=== PATIENT | male | born 1945 | race Caucasian/White ===

== ENCOUNTER 2019-08-03 10:48 | Emergency (ER) | payer MEDICARE, SELFPAY ==
[2019-08-03 10:54] VITALS: BP 177/97; PULSE 82; RESP 16; TEMP 36.4; O2SAT 95; BMI 20.9
--- NOTE | 2019-08-03 11:02 | ED.RECABL ---
HPI - Recheck/Abnormal Lab/Rx <Martha Gagnon PA-C - Last Filed: 08/03/19 20:17> General Chief Complaint: Recheck/Abnormal Lab/Rx Stated Complaint: peg tube is clogged Time Seen by Provider: 08/03/19 11:02 Source: patient and family Mode of arrival: Ambulatory Limitations: no limitations History of Present Illness HPI narrative: This 73-year-old gentleman had PEG tube placed 1 week ago following cardiac surgery. He states that he has had chronic cough and dysphagia prior, describes worsening vocal cord issues after intubation and found to have aspiration. He comes to ED secondary to the tube being clogged. His states that it seemed to be working fine this morning, she flushed it after his Levoxyl, but later could not push food bolus through even though it looks like there is some movement. Patient states he is feeling fine today aside from this. No new chest discomfort, abdominal pain, vomiting, other new complaints. 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 Hypertension. Mitral valve prolapse with mitral regurg. Radiation esophagitis. AF following MVR Chronic dysphagia/aspiration Past Surgical History Dissection of neck cancer. 07/15 Mitral Valve Repair 07/15 PEG tube placed Related Data Home Medications Medication Instructions Recorded Confirmed acetaminophen 650 mg PO Q4H PRN MDD 3000 08/03/19 08/03/19 albuterol sulfate 1 - 2 inh INHALATION PRN PRN 08/03/19 08/03/19 amiodarone 200 mg PO DAILY 08/03/19 08/03/19 aspirin 81 mg PO DAILY 08/03/19 08/03/19 calcium carbonate 400 mg PO TID PRN 08/03/19 08/03/19 famotidine 20 mg PO BID 08/03/19 08/03/19 finasteride 5 mg PO DAILY 08/03/19 08/03/19 fluticasone propionate 2 spray INTRANASAL BID PRN 08/03/19 08/03/19 furosemide 20 mg PO DAILYX7 08/03/19 08/03/19 guaifenesin 200 mg PO PRN PRN 08/03/19 08/03/19 levothyroxine 112 mcg PO DAILY 08/03/19 08/03/19 metoprolol tartrate 12.5 mg PO BID 08/03/19 08/03/19 multivitamin 30 ml PO DAILY 08/03/19 08/03/19 nystatin 0 ml PO [id number] 08/03/19 08/03/19 polyethylene glycol 3350 17 g PO [id number] PRN 08/03/19 08/03/19 sildenafil (pulm.hypertension) 30 mg PO PRN PRN 08/03/19 08/03/19 warfarin 5 mg PO DAILY 08/03/19 08/03/19 Allergies Allergy/AdvReac Type Severity Reaction Status Date / Time No Known Drug Allergies Allergy Verified 08/03/19 10:54 Review of Systems <Martha Gagnon PA-C - Last Filed: 08/03/19 20:17> Review of Systems ROS Unobtainable: All systems reviewed & are unremarkable except as noted in HPI and below Patient History <Martha Gagnon PA-C - Last Filed: 08/03/19 20:17> Social History Smoking Status: Never smoker Substance Use Type: does not use Exam <Martha Gagnon PA-C - Last Filed: 08/03/19 20:17> Narrative Exam Narrative: GENERAL APPEARANCE: Patient resting comfortably, in no distress. Hoarse voice NECK/THYROID: Neck supple LUNGS: Clear to auscultation bilaterally. HEART: irregular rate and rhythm without murmur ABDOMEN: Soft, NT, ND, + BS x 4 quadrants EXTREMITIES: No cyanosis, mild symmetric. No calf tenderness NEUROLOGIC: Alert and oriented, normal speech, and coordination. Initial Vital Signs Initial Vital Signs: Vital Signs Temperature 97.6 F 08/03/19 10:54 Pulse Rate 82 08/03/19 10:54 Respiratory Rate 16 08/03/19 10:54 Blood Pressure 177/97 H 08/03/19 10:54 Pulse Oximetry 95 08/03/19 10:54 <Janelle Walker DO - Last Filed: 08/04/19 07:13> Initial Vital Signs Initial Vital Signs: Vital Signs Temperature 97.6 F 08/03/19 10:54 Pulse Rate 82 08/03/19 10:54 Respiratory Rate 16 08/03/19 10:54 Blood Pressure 177/97 H 08/03/19 10:54 Pulse Oximetry 95 08/03/19 10:54 Course <Martha Gangon PA-C - Last Filed: 08/03/19 20:17> Course Additional Information: Dr. Newman, military personnel specialist for surgery has seen patient and spent more than an hour trying to get the PEG tube patent. He was able to get some soda through after using a J wire, but advised this needs to be replaced with a larger bore tube, will not he able to be used for feeding or medications. He advised transfer back to given that this was just placed, would not replace here given that it has been such a short time and patient is newly anticoagulated (this was done by IR). I have spoken with on-call cardiac surgeon Dr. Azar who felt it would be appropriate to admit patient to medicine for monitoring and tube replacement. No acute issue related to recent cardiac surgery. I have spoken with Dr. Morrison from the medical service who accepts patient for transfer. He has known AFib but has been asymptomatic and has not been required to have any outpatient cardiac monitoring. Since his transfer is unrelated, will be via BLS, pending. Patient is resting comfortably at the time of transfer Orders Ordered: Discontinued Medications Sodium Chloride (Normal Saline 0.9%) 1,000 mls @ 84 mls/hr IV CONT DELIO Last Infusion: 08/03/19 17:32 Dose: 0 mls/hr Documented by: Admin: 08/03/19 15:03 Dose: 84 mls/hr Documented by: [email or web address] Vital Signs Vital signs: Vital Signs - 8 hr 08/03/19 13:00 08/03/19 16:49 Pulse Rate 82 79 Respiratory Rate 24 23 Blood Pressure [Left Arm] 143/81 H 145/84 H Pulse Oximetry 98 94 <Janelle Walker DO - Last Filed: 08/04/19 07:13> Orders Ordered: Discontinued Medications Sodium Chloride (Normal Saline 0.9%) 1,000 mls @ 84 mls/hr IV CONT DELIO Last Infusion: 08/03/19 17:32 Dose: 0 mls/hr Documented by: Admin: 08/03/19 15:03 Dose: 84 mls/hr Documented by: KBROTEM Vital Signs Vital signs: Vital Signs - 8 hr 08/03/19 13:00 08/03/19 16:49 Pulse Rate 82 79 Respiratory Rate 24 23 Blood Pressure [Left Arm] 143/81 H 145/84 H Pulse Oximetry 98 94 MDM - Recheck/Abnormal Lab/Rx <Martha Gagnon PA-C - Last Filed: 08/03/19 20:17> Lab Data Attestation: I reviewed the patient's lab results. Lab results narrative: Lab results reviewed from today, outpatient chart. Reviewed with hospitalist Dr. Morrison Discharge Plan Departure Patient Disposition: [facility] Clinical Impression: Malfunction of percutaneous endoscopic gastrostomy (PEG) tube Discharge Date/Time: 08/03/19 17:46 Prescriptions: No Action nystatin 100,000 unit/mL suspension 0 ml PO [id number] RF: 0 amiodarone 200 mg tablet 200 mg PO DAILY RF: 0 warfarin 5 mg tablet 5 mg PO DAILY RF: 0 furosemide 20 mg tablet 20 mg PO DAILYX7 RF: 0 finasteride 5 mg tablet 5 mg PO DAILY RF: 0 levothyroxine 112 mcg tablet 112 mcg PO DAILY RF: 0 metoprolol tartrate 25 mg tablet 12.5 mg PO BID RF: 0 sildenafil (pulm.hypertension) 20 mg tablet 30 mg PO PRN PRN (Reason: erectile dysfunction) RF: 0 multivitamin Liquid 30 ml PO DAILY RF: 0 acetaminophen 325 mg Tablet 650 mg PO Q4H MDD 3000 PRN (Reason: pain) RF: 0 polyethylene glycol 3350 17 gram Powder In Packet 17 g PO [id number] PRN (Reason: Constipation) RF: 0 aspirin 81 mg Tablet,Delayed Release (Dr/Ec) 81 mg PO DAILY RF: 0 guaifenesin 100 mg/5 mL Liquid 200 mg PO PRN PRN (Reason: Cough) RF: 0 famotidine 20 mg Tablet 20 mg PO BID RF: 0 calcium carbonate 200 mg calcium (500 mg) Tablet,Chewable 400 mg PO TID PRN (Reason: Heartburn) RF: 0 fluticasone propionate 50 mcg/actuation [place],Suspension 2 spray INTRANASAL BID PRN (Reason: Allergy Symptoms) RF: 0 albuterol sulfate 90 mcg/actuation Aero Powdr Breath Act W/Sensor 1 - 2 inh INHALATION PRN PRN (Reason: Wheezing) RF: 0 Referrals: Pedro Yañez MD [Primary Care Provider] -
[2019-08-03 13:00] VITALS: BP 143/81; PULSE 82; RESP 24; O2SAT 98
--- NOTE | 2019-08-03 13:32 | PC.NURSE ---
1300 Dr Burks at bedside using guide wire to attempt to clear tube. able to flush small amounts of cola through tube. continues to have resistance spenser with larger syringe. extra tubing replaced to site, new dressing placed to tube.
--- NOTE | 2019-08-03 13:51 | PM.CN ---
History of Present Illness Consult details Date Patient Seen: 08/03/19 Time Patient Seen: 13:51 Chief complaint: peg tube is clogged Reason for consult: Obstruct PEG tube Narrative: Patient was discharged from the [facility] 2 days ago with a PEG tube which she has only used at home for 1 day. On attempted use this morning his was not able to pass food or his medications through the tube. She actually did get some of the material down the tube but then could not flush the tube adequately. Patient comes to the emergency department for evaluation of this obstructed feeding tube. Patient had mitral valve repair done at the [facility] 2 weeks ago and just went home 2 days ago. The feeding tube was placed because of severe dysphagia and repeated aspiration. Patient is also on Coumadin therapy with an INR of only 1.3 when he was discharged 2 days ago checking an INR today [facility] Social History Smoking Status: Never smoker Meds Home Medications and Allergies Home Medications Medication Instructions Recorded Confirmed Type amiodarone 200 mg PO DAILY 08/03/19 08/03/19 History finasteride 5 mg PO DAILY 08/03/19 08/03/19 History furosemide 20 mg PO DAILYX7 08/03/19 08/03/19 History levothyroxine 112 mcg PO DAILY 08/03/19 08/03/19 History metoprolol tartrate 12.5 mg PO BID 08/03/19 History nystatin 08/03/19 History sildenafil (pulm.hypertension) 30 mg PO PRN PRN 08/03/19 08/03/19 History warfarin 5 mg PO DAILY 08/03/19 08/03/19 History Allergies Allergy/AdvReac Type Severity Reaction Status Date / Time No Known Drug Allergies Allergy Verified 08/03/19 10:54 Exam Vital Signs (past 8 hours): - 08/03/19 10:54 08/03/19 13:00 Temperature 97.6 F Pulse Rate 82 82 Respiratory Rate 16 24 Blood Pressure 177/97 H Blood Pressure [Left Arm] 143/81 H Pulse Oximetry 95 98 Oxygen Delivery Method Room Air Narrative Exam Narrative: Patient lying in bed with an obstructed PEG tube sutures are still in place he has no abdominal pain. Assessment & Plan Assessment & Plan narrative: I spent over an hour with this patient trying to clear his PEG tube. I was able to pass a J-wire down the tube easily and this caused no abdominal discomfort. After that I could inject Coca-Cola through the tube. However I could not inject without significant pressure. Again I spent an hour with this process. I have advised the patient and family to return to [facility] where his shower maid and cardiac surgeon are in residence and have this PEG tube replaced. This particular tube is a 16 Frisian with very small connecting pieces and I would recommend using a larger tube. This is because the patient requires his medications to be administered in a crushed state down the tube. Arrangements are being made for the patient to return to [facility]. The patient had absolutely no abdominal discomfort with passage of the J wire or injecting of cola.
[2019-08-03] MEDS: SODIUM CHLORIDE 0.9% 1,000 ML 84 ML IV (15:03)
[2019-08-03 16:49] VITALS: BP 145/84; PULSE 79; RESP 23; O2SAT 94
--- NOTE | 2019-08-03 17:33 | PC.NURSE ---
Attempted to call report. They took number and said they will call back for report
== END 2019-08-03 17:46 | disposition short-term general hospital (02) ==
PROVIDERS: Emergency Provider Internal Medicine; Family Provider Internal Medicine Cardiovascular Disease; PCP Family Medicine
DX: K94.23 Gastrostomy malfunction (principal); Z79.01 Long term (current) use of anticoagulants
CPT/HCPCS: 36415; 96360; 96361; 99283; 99284

== ENCOUNTER → 2019-08-03 13:07 | Outpatient (ROUT) | payer MEDICARE, SELFPAY ==
[2019-08-03 13:39] LABS: Add Manual Diff / Slide Review NO; Basophils Absolute Auto 100 /uL (0-100); Basophils Percent Auto 0.8 % (0-2); Eosinophils Absolute Auto 100 /uL (0-450); Eosinophils Percent Auto 0.7 % (2-4); Hemoglobin 11.3 g/dL (13.5-17.5); Lymphocytes Absolute Auto 600 /uL (1100-4500); Lymphocytes Percent Auto 6.8 % (25-40); Mean Corpuscular HGB Conc 33.3 % (30-36); Mean Corpuscular Hemoglobin 32.1 PG (26-34); Mean Corpuscular Volume 96.3 fL (80-100); Monocytes Absolute Auto 600 /uL (0-900); Neutrophils Absolute Auto 6900 /uL (1500-7000); Neutrophils Percent Auto 84.7 % (50-75); Platelet Count 500 X10^3/uL (150-400); Red Blood Cell Count 3.53 X10^6/uL (4.5-5.9); Red Cell Distribution Width 14.6 % (11.6-14.8); White Blood Cell Count 8.1 X10^3/uL (4.5-11.0)
[2019-08-03 13:44] LABS: INR 1.8 (0.9-1.3); Prothrombin Time 20.6 SECONDS (10.1-12.7)
[2019-08-03 13:48] LABS: Alanine Aminotransferase 43 IU/L (<50); Albumin 3.5 g/dL (3.5-5.0); Albumin Globulin Ratio 1.1 (1.0-2.8); Alkaline Phosphatase 117 U/L (38-126); Aspartate Aminotransferase 22 IU/L (17-59); BUN Creatinine Ratio 31.4 (6-22); Bilirubin Total 0.4 mg/dL (0.2-1.3); Blood Urea Nitrogen 22 mg/dL (9-20); Calcium 8.6 mg/dL (8.4-10.2); Carbon Dioxide 35 mmol/L (22-32); Chloride 93 mmol/L (98-107); Estimated Glomerular Filt Rate > 60.0 mL/min (>60); Globulin 3.2 g/dL (1.7-4.1); Glucose 108 mg/dL (80-110); HEMOLYSIS < 15 (0-50); Sodium 133 mmol/L (137-145); Total Protein 6.7 g/dL (6.3-8.2)
[2019-08-03 13:49] LABS: Potassium 5.6 mmol/L (3.4-5.1)
== END ==
PROVIDERS: Family Provider Internal Medicine Cardiovascular Disease; PCP Family Medicine; Visit Provider Family Medicine
DX: I48.91 Unspecified atrial fibrillation (principal); I10 Essential (primary) hypertension
CPT/HCPCS: 36415; 80053; 85025; 85610

== ENCOUNTER → 2019-10-10 11:54 | Outpatient (ROUT) | payer MEDICARE, SELFPAY ==
[2019-10-10 12:00] LABS: INR 2.6 (0.9-1.3); Prothrombin Time 30.1 SECONDS (10.1-12.7)
== END ==
PROVIDERS: Family Provider Internal Medicine Cardiovascular Disease; PCP Family Medicine; Visit Provider Family Medicine
DX: I48.92 Unspecified atrial flutter (principal)
CPT/HCPCS: 85610

== ENCOUNTER → 2019-10-17 15:17 | Outpatient (ROUT) | payer MEDICARE, SELFPAY ==
[2019-10-17 15:26] LABS: INR 3.7 (0.9-1.3); Prothrombin Time 43.6 SECONDS (10.1-12.7)
== END ==
PROVIDERS: Family Provider Internal Medicine Cardiovascular Disease; PCP Family Medicine; Visit Provider Family Medicine
DX: I48.92 Unspecified atrial flutter (principal)
CPT/HCPCS: 85610

== ENCOUNTER → 2019-10-31 14:03 | Outpatient (ROUT) | payer MEDICARE, SELFPAY ==
[2019-10-31 14:29] LABS: INR 2.6 (0.9-1.3); Prothrombin Time 29.3 SECONDS (10.1-12.7)
== END ==
PROVIDERS: Family Provider Internal Medicine Cardiovascular Disease; PCP Family Medicine; Visit Provider Family Medicine
DX: I48.92 Unspecified atrial flutter (principal)
CPT/HCPCS: 85610

== ENCOUNTER → 2019-11-08 10:16 | Outpatient (ROUT) | payer MEDICARE, SELFPAY ==
[2019-11-08 10:28] LABS: INR 2.8 (0.9-1.3); Prothrombin Time 31.6 SECONDS (10.1-12.7)
== END ==
PROVIDERS: Family Provider Internal Medicine Cardiovascular Disease; PCP Family Medicine; Visit Provider Family Medicine
DX: I48.92 Unspecified atrial flutter (principal)
CPT/HCPCS: 85610

== ENCOUNTER → 2019-11-14 11:10 | Outpatient (ROUT) | payer MEDICARE, SELFPAY ==
[2019-11-14 11:23] LABS: INR 3.2 (0.9-1.3); Prothrombin Time 36.4 SECONDS (10.1-12.7)
== END ==
PROVIDERS: Family Provider Internal Medicine Cardiovascular Disease; PCP Family Medicine; Visit Provider Family Medicine
DX: I48.92 Unspecified atrial flutter (principal)
CPT/HCPCS: 85610

== ENCOUNTER → 2019-11-21 14:19 | Outpatient (ROUT) | payer MEDICARE, SELFPAY ==
[2019-11-21 14:31] LABS: INR 2.9 (0.9-1.3); Prothrombin Time 33.5 SECONDS (10.1-12.7)
== END ==
PROVIDERS: Family Provider Internal Medicine Cardiovascular Disease; PCP Family Medicine; Visit Provider Family Medicine
DX: I48.92 Unspecified atrial flutter (principal)
CPT/HCPCS: 85610

== ENCOUNTER → 2019-11-28 12:15 | Outpatient (ROUT) | payer MEDICARE, SELFPAY ==
[2019-11-28 15:47] LABS: INR 2.7 (0.9-1.3); Prothrombin Time 30.2 SECONDS (10.1-12.7)
== END ==
PROVIDERS: Family Provider Internal Medicine Cardiovascular Disease; PCP Family Medicine; Visit Provider Family Medicine
DX: I48.92 Unspecified atrial flutter (principal)
CPT/HCPCS: 85610

== ENCOUNTER → 2019-12-05 15:27 | Outpatient (ROUT) | payer MEDICARE, SELFPAY ==
[2019-12-05 16:10] LABS: INR 2.7 (0.9-1.3); Prothrombin Time 31.4 SECONDS (10.1-12.7)
== END ==
PROVIDERS: Family Provider Internal Medicine Cardiovascular Disease; PCP Family Medicine; Visit Provider Family Medicine
DX: I48.92 Unspecified atrial flutter (principal)
CPT/HCPCS: 85610

== ENCOUNTER 2019-12-06 14:00 | Outpatient (RCR) | payer MEDICARE, SELFPAY | END 2020-03-13 15:20 | LOC: CAR 14:00 | PROVIDERS: Family Provider Internal Medicine Cardiovascular Disease; PCP Family Medicine; Visit Provider Internal Medicine Cardiovascular Disease | DX: Z95.2 Presence of prosthetic heart valve (principal) | CPT/HCPCS: 93798 ==

== ENCOUNTER → 2019-12-12 07:55 | Outpatient (CLI) | payer MEDICARE, SELFPAY ==
--- NOTE | 2019-12-12 | DI.RAD.S_ITS ---
PROCEDURE: FL BARIUM SWALLOW W SPEECH INDICATIONS: Dysphagia, oropharyngeal phase TECHNIQUE: Examination was conducted in conjunction with speech pathology per standard protocol. In the lateral projection, filming was performed of the patient swallowing. AP projection filming may also be performed with patient swallowing. COMPARISON: [facility], , BARIUM SWALLOW WITH SPEECH, 07/30/2015, 13:59. FINDINGS: Function: The oral preparatory phase appears normal, with proper containment. The subsequent oral propulsive phase, pharyngeal phase, and esophageal phase of swallowing also appear generally normal with all proffered substances but there was persistent pooling in the vallecula of the pharyngeal area, with several episodes of mild anterior penetration during the swallowing evaluation without aspiration. No pathologic vallecular pooling. Morphology: No cricopharyngeal bar is identified. No cervical esophageal webs. No Zenker's diverticulum. No strictures. IMPRESSION: The persistent finding of mild vallecular pooling during the swallowing procedures performed over the course of the study may reflect sequela of prior radiation therapy in this patient with prior head and neck carcinoma treatment. No mass lesion is found. Episodic mild anterior penetration of the swallowed materials was observed, without aspiration at any point over the course of the study. Please also review the dedicated swallowing evaluation report that will be independently generated by the speech therapy staff. Dictated by: Salvador Baumann M.D. on 12/12/2019 at 16:16 Approved by: Salvador Baumann M.D. on 12/12/2019 at 16:18
--- NOTE | 2019-12-15 15:38 | ST.SWALLOW ---
Visit Care Team Role Provider Type Terry Mora MD Family Provider Physician Specialty: Cardiology Address: [address], [address], [place], [address] Email: [email or web address] Pedro Yañez MD Attending Provider Physician Primary Care Provider Referring Provider Specialty: Family Practice Address: [address] [facility], [address], [place], [address] Email: [email or web address] Modified Barium Swallow Study CREW MESS ATTENDANT Modified Barium Swallow Study Start: 12/13/19 17:18 Freq: Status: Active Protocol: Document 12/12/19 17:19 GLADIS (Rec: 12/13/19 17:19 GLADIS [email or web address]) Modified Barium Swallow Study Total Time Visit Start Time 08:30 Visit Stop Time 09:00 Total Visit Minutes [address] Pedro Yañez Reason for Referral Dysphagia with PEG tube feeding Setting Setting Outpatient Care Patient Information Identification Type Name,ID Card Patient History The pt is a 74-yr-old male who has been working in outpatient dysphagia therapy with this clinician. Mr. 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 He underwent right side neck dissection and was treated initially with precise radiation targeting base of tongue which was expanded to level of pt's nose to abdomen. The pt reports receiving maximum radiation allowed by federal standards. Since, the pt has acquired autonomic neuropathy and, ~1.5 yrs after radiation, increased coughing with oral intake and development of chronic cough. On Jul 11, 2019, the pt had open heart surgery at [facility] for mitral valve repair, during which he was intubated. 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 He remained hospitalized for 3 wks d/t these complications, was treated with Botox to paralyzed VF, and became dependent on PEG tube feeding, which he continues to today. He participated in dysphagia therapy during and after hospital stay with CREW MESS ATTENDANT and transferred care to [facility] outpatient clinic in Oct 2019. He remains NPO with exception of ice chips. MBSS administered today to assess progress with swallow function/safety, do determine if pt is able to transition back to oral intake, and to guide POC. Subjective Observations The pt arrived on time. No new complaints. Patient Positioning Position View Lateral Imaging Lateral View Textures Administered Trials Presented [place] Liquid via Spoon,[place] Liquid via Cup,Dysphagia Blenderized Textures, Mechanical Soft Textures Oral Phase Source: MBSIMP (TM) (C) Bolus Specific Scoring Grid Lip Closure No Impairment (WNL) Tongue Control During Bolus Hold No Impairment (WNL) Bolus Transport/Lingual Motion Minimal Impairment A/P Lingual Propulsion Delay Yes: Occ minimal lingual rocking Number of Seconds Delayed (seconds) 1-2 Oral Residue WFL Nasal Regurgitation No Additional Oral Phase Observations Pt exhibited occasional minimal lingual rocking with a /p transport. Otherwise oral phase is WNL. Pharyngeal Phase Source: MBSIMP (TM) (C) Bolus Specific Scoring Grid Delayed Initiation of Pharyngeal Swallow No Soft Palate Elevation No Impairment (WNL) Tongue Base Strength/Range of Motion Mild Impairment Residue Along the Tongue Base Yes: Trace to mild Clearance of Residue Along Tongue Base Minimal Impairment Anterior Hyoid Movement WFL Epiglottic Range of Motion Moderate Impairment Vallecular Residue Yes: Moderate to severe, consistently Clearance of Vallecular Residue Severe Impairment Laryngeal Vestibular Closure Mild Impairment Pharyngeal Stripping Wave Moderate Impairment Posterior Pharyngeal Wall Residue Yes: Trace to mild Clearance of Posterior Pharyngeal Wall Moderate Impairment Residue Upper Esophageal Sphincter Opening Moderate Impairment Residue in the Pyriform Sinuses Yes: Moderate to severe, consistently Clearance of Residue in the Pyriform Severe Impairment Sinuses Pharyngoesophageal Backflow Observed No Additional Pharyngeal Phase Observations Trace to mild penetration of all consistencies and of pharyngeal residue was observed, silent in nature. Contrast remained above VFs in all but one trial near the end of the study, where it rested on and then transferred to underside of folds. Aspiration was not directly observed but cannot be ruled out. Throughout the study, the pt was instructed to cough periodically, either in isolation in attempt to clear penetrated contrast, or as part of super-supraglottic swallow maneuver. Coughing was effective in clearing contrasted material. The pt exhibited limited strength and/or ROM of pharyngeal musculature, resulting in reduced anterior hyoid excursion, minimal epiglottic inversion (epiglottis consistently made contact with pharyngeal wall during swallow), and minimal pharyngeal stripping wave. UES opening was minimal and short in duration. The pharyngeal pathway of the bolus was narrow, which in part was impacted by osteophytes observed at C4-C5 (mild) and C5-C6 (moderate). These impairments and structural conditions resulted in significant pharyngeal residue which did not fully clear after multiple swallows and which frequently penetrated the laryngeal vestibule both during and after swallow. Most trials consisted of 1/4-1/2 tsp boluses, which required multiple swallows and did not fully clear the pharynx. Both head turn to weak (right) side and chin tuck were trialed without benefit. A/P View Clinical Impressions Dysphagia Type Severe Pharyngeal Dysphagia Findings The pt exhibits improved but not complete airway protection, as compared to previous MBS results; however, he continues with severe pharyngeal dysphagia likely secondary to radiation effect. Unsure if scarring is present and contributes to impairment, but is a likely possibility as well. Dysphagia is characterized by reduced strength and ROM of pharyngeal musculature and impacted by presence of osteophytes, particularly at C5-C6 level, which moderately impeded bolus flow. No aspiration was observed. Trace to mild penetration was observed with bolus trials and pharyngeal residue, both during and after swallow, and was silent in nature. One occurrence of contrast resting on and then transferring to posterior surface of VF was observed. Penetrated contrast was effectively expelled with cough performed either in isolation or part of super- supraglottic swallow maneuver. Most concerning was the amount and consistent presence of pharyngeal residue, which resulted from minimal epiglottic inversion, reduced pharyngeal stripping wave, intrusion of ostephyte into bolus pathway, and reduced degree and duration of UES extension. The pt required multiple swallows per bolus, which did not effectively clear the pharynx and did frequently penetrate into the laryngeal vesitbule. Given these findings, it is recommended the pt continue with PEG tube as primary source of nutrition and hydration. With use of super- supraglottic swallow strategy with multiple swallows per bolus, the pt does exhibit safety sufficient for occasional oral intake of NTL and thin pureed textures (e.g., applesauce), recommended bolus sizes of no more than 1/2 tsp and limited to 4 bites/ sips at a time no more than 2- 3x/day. Strict oral care is recommended after intake. This amount of oral intake will not provide sufficient nutrition and hydration to meet the pt's daily needs. It is recommended the pt continue with swallow exercises as prescribed in HEP to maintain and perhaps improve current function. Significant improvement in swallow function and safety is not anticipated with further dysphagia therapy, given the apparent effects of radiation and right neck dissection. It is anticipated that the pt will remain dependent on PEG tube feeding to meet his nutrition and hydration needs. Rehabilitation Potential Poor Patient Appropriate for Therapy Yes: Pt education & HEP Recommendations Diet Medication Recommendation Not Recommended by Mouth Treatment Plan Additional Therapy Recommendations F/U with outpatient clinician to discuss POC. Placement Recommendation After Discharge Home
== END ==
PROVIDERS: Family Provider Internal Medicine Cardiovascular Disease; PCP Family Medicine; Referring Provider Family Medicine; Visit Provider Family Medicine
DX: R13.12 Dysphagia, oropharyngeal phase (principal); I48.92 Unspecified atrial flutter
CPT/HCPCS: 74230; 85610; 92611

== ENCOUNTER → 2019-12-12 10:46 | Outpatient (ROUT) | payer MEDICARE, SELFPAY ==
[2019-12-12 10:55] LABS: INR 2.9 (0.9-1.3)
== END ==
PROVIDERS: Family Provider Internal Medicine Cardiovascular Disease; PCP Family Medicine; Visit Provider Family Medicine
DX: I48.92 Unspecified atrial flutter (principal)
CPT/HCPCS: 85610

== ENCOUNTER → 2019-12-26 14:25 | Outpatient (ROUT) | payer MEDICARE, SELFPAY ==
[2019-12-26 14:37] LABS: INR 2.4 (0.9-1.3); Prothrombin Time 26.9 SECONDS (10.1-12.7)
== END ==
PROVIDERS: Family Provider Internal Medicine Cardiovascular Disease; PCP Family Medicine; Visit Provider Family Medicine
DX: I48.92 Unspecified atrial flutter (principal)
CPT/HCPCS: 85610

== ENCOUNTER → 2020-01-25 09:46 | Outpatient (ROUT) | payer MEDICARE, SELFPAY ==
[2020-01-25 10:05] LABS: INR 1.7 (0.9-1.3); Prothrombin Time 19.1 SECONDS (10.1-12.7)
== END ==
PROVIDERS: Family Provider Internal Medicine Cardiovascular Disease; PCP Family Medicine; Visit Provider Family Medicine
DX: I48.92 Unspecified atrial flutter (principal)
CPT/HCPCS: 85610

== ENCOUNTER → 2020-02-01 14:53 | Outpatient (ROUT) | payer MEDICARE, SELFPAY ==
[2020-02-01 15:06] LABS: INR 1.7 (0.9-1.3); Prothrombin Time 19.7 SECONDS (10.1-12.7)
== END ==
PROVIDERS: Family Provider Internal Medicine Cardiovascular Disease; PCP Family Medicine; Visit Provider Family Medicine
DX: I48.92 Unspecified atrial flutter (principal)
CPT/HCPCS: 85610

== ENCOUNTER → 2020-02-09 09:59 | Outpatient (ROUT) | payer MEDICARE, SELFPAY ==
[2020-02-09 10:17] LABS: INR 1.7 (0.9-1.3); Prothrombin Time 18.9 SECONDS (10.1-12.7)
== END ==
PROVIDERS: Family Provider Internal Medicine Cardiovascular Disease; PCP Family Medicine; Visit Provider Family Medicine
DX: I48.92 Unspecified atrial flutter (principal)
CPT/HCPCS: 85610

== ENCOUNTER → 2020-02-22 15:32 | Outpatient (CLI) | payer MEDICARE, SELFPAY ==
--- NOTE | 2020-02-22 15:34 | DI.ECHO.S_ITS ---
[place] [facility]---------+ [facility] +---------+ : : [address] : : : : [id number] : : : : Phone: [phone]+ Echocardiogram Report + + :Name: DANNY ZHOU Study Date: 02/22/2020 Height: 70 in : :[facility] Weight: 145 lb : : Gender: Male BSA: 1.8 m2 : :: 1945 Age: 74 yrs BP: 124/70 mmHg: :Reason For Study: CARDIOMYOPATHY : : Performed By: Makayla May : :Referring: UNSPECIFIED : + + Interpretation Summary The left ventricle is normal in size and wall thickness. The ejection fraction is estimated to be 55-60%. There are no focal wall motion abnormalities. Diastolic parameters suggest a relaxation abnormality of the left ventricle, consistent with probable normal filling pressures. The right ventricle is normal size. The right ventricular systolic function is normal. The right ventricular systolic pressure is estimated to be at least 21 mmHg based on an estimated right atrial pressure of 3 mm Hg. Both atria are normal in size. An annuloplasty ring is noted in the mitral position which is new since prior echo study on 12/07/2016. There is mild mitral regurgitation. MR has significantly reduced since study. There is no other significant valvular heart disease. The aortic root is normal size. Procedure: A two-dimensional transthoracic echocardiogram with color flow and Doppler was performed. The study quality was technically adequate. Comparison is made with the echocardiogram of 12/07/2016. The patient was in normal sinus rhythm during the exam. The heart rate ranged between 69-71 bpm during the study. Left Ventricle: The left ventricle is normal in size and wall thickness. The ejection fraction is estimated to be 55-60%. Septal motion is consistent with post-operative state. There are no focal wall motion abnormalities. Diastolic parameters suggest a relaxation abnormality of the left ventricle, consistent with probable normal filling pressures. Right Ventricle: The right ventricle is normal size. The right ventricular systolic function is normal. Atria: Both atria are normal in size. There is no Doppler evidence for an interatrial shunt. Mitral Valve: An annuloplasty ring is noted in the mitral position. There is mild mitral regurgitation. Aortic Valve: The aortic valve is trileaflet. The aortic valve opens well. There is no aortic valve stenosis. No aortic regurgitation is present. Tricuspid Valve: The tricuspid valve is normal in structure and function. There is trace tricuspid regurgitation. The right ventricular systolic pressure is estimated to be at least 21 mmHg based on an estimated right atrial pressure of 3 mm Hg. Pulmonic Valve: The pulmonic valve is not well seen, but is grossly normal. There is no pulmonic valvular regurgitation. There is no other significant valvular heart disease. Great Vessels: The aortic root is normal size. The ascending aorta could not be visualized. The IVC is of normal diameter and collapses greater than 50% with a sniff. This suggests a low right atrial pressure of 3 mm Hg. Pericardium/ Pleura There is no pericardial effusion. There is no pleural effusion. MMode/2D Measurements & Calculations LVIDd: 4.2 cm LVOT diam: 2.0 cm LVIDs: 3.0 cm Ao root diam: 3.0 cm FS: 28.9 % Ao Arch Diam (Prox Trans): 2.5 cm EPSS: 0.62 cm IVSd: 0.85 cm LVPWd: 0.91 cm LV noyola. diameter/BSA (cm/m^2): 2.3 LV sys. diameter/BSA (cm/m^2): 1.6 LA A2 area: 21.1 cm2 RA long axis: 4.7 cm LA A4 area: 12.4 cm2 RA area: 12.7 cm2 LA length (vol): 4.4 cm RA vol: 29.5 ml LA vol: 51.2 ml RA : 16.2 ml/m2 LA vol index: 28.1 ml/m2 IVC diam: 1.2 cm RVD1 (basal): 3.9 cm TAPSE: 1.4 cm Doppler Measurements & Calculations Ao V2 max: 114.7 cm/sec LVOT Max Jose R: 106.8 cm/sec Ao V2 mean: 80.1 cm/sec LV V1 max P.6 mmHg Ao max P.3 mmHg LV V1 VTI: 20.2 cm Ao mean P.9 mmHg LITO(I,D): 2.9 cm2 Ao V2 VTI: 21.9 cm LITO(V,D): 3.0 cm2 sev ratio: 0.92 LITO indexed to BSA (cm^2/m^2): 1.6 MV E max jose r: 60.4 cm/sec TR max jose r: 214.0 cm/sec MV A max jose r: 101.1 cm/sec TR max P.3 mmHg MV E/A: 0.60 PA V2 max: 90.1 cm/sec Med Peak E' Jose R: 5.0 cm/sec PA V2 mean: 60.4 cm/sec E/E' med: 12.0 PA mean P.7 mmHg Lat Peak E' Jose R: 8.7 cm/sec E/E' lat: 6.9 E/e' average: 9.5 MV dec time: 0.26 sec SV(LVOT): 63.9 ml Reading Physician:05:18 PM
== END ==
PROVIDERS: Family Provider Internal Medicine Cardiovascular Disease; PCP Family Medicine; Referring Provider Family Medicine; Visit Provider Internal Medicine Cardiovascular Disease
DX: I34.0 Nonrheumatic mitral (valve) insufficiency (principal); I42.9 Cardiomyopathy, unspecified
CPT/HCPCS: 93306

== ENCOUNTER → 2020-04-19 11:16 | Outpatient (CLI) | payer MEDICARE, SELFPAY ==
[2020-04-21 19:08] LABS: COVID19 Sendout Not Detected (Not Detect)
== END ==
PROVIDERS: Family Provider Internal Medicine Cardiovascular Disease; PCP Family Medicine; Visit Provider Physician Assistant
DX: Z01.818 Encounter for other preprocedural examination (principal)
CPT/HCPCS: 87635

== ENCOUNTER 2020-05-13 12:30 | Outpatient (RCR) | payer MEDICARE, SELFPAY ==
--- NOTE | 2019-10-24 17:48 | ST.OPIE ---
Visit Care Team Role Provider Type Terry Mora MD Family Provider Physician Specialty: Cardiology Address: [address], [address], [place], [address] Email: [email or web address] Pedro Yañez MD Attending Provider Physician Primary Care Provider Specialty: Family Practice Address: [facility], [address], [place], [address] Email: [email or web address] Speech-Language Pathology Initial Evaluation PHYSICAL THERAPIST Clinical Swallow Evaluation Start: 10/23/19 09:34 Freq: Status: Active Protocol: Document 10/23/19 09:34 GLADIS (Rec: 10/23/19 09:46 GLADIS [email or web address]) Clinical Swallow Evaluation Session Time Visit Start Time 08:30 Visit Stop Time 09:35 Total Visit Minutes 65 Visit Information Plan of Care Dates 10/22/19 - 01/14/20 Insurance Information Medicare Referral Referring Physician Dr. 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 The pt underwent right side neck dissection and was treated initially with precise radiation targeting base of tongue; however, this was not effective and when they couldn't find the source (per pt report), radiation was expanded from level of the pt's nose to abdomen. The pt reports receiving maximum radiation allowed by federal standards. Since, the pt has acquired autonomic neuropathy and, ~1.5 yrs after radiation, increased coughing with oral intake and development of chronic cough. On Jul 11, 2019, the pt had open heart surgery at [facility] for mitral valve repair, during which he was intubated. 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 He remained hospitalized for 3 wks d/t these complications, was treated with Botox to paralyzed VF, and became dependent on PEG tube feeding, which he continues to today. He participated in dysphagia therapy during and after hospital stay but remains NPO with exception of ice chips. During dysphagia treatment, a home exercise program was established, and Repeat MBSS was performed on which revealed improved swallow but ongoing silent aspiration, and tube feeding was continued. The pt's primary stated goal is to get rid of the feeding tube. He reported that his voice has improved significantly since administration of Botox but remains somewhat rough, and he would like to see this improve as well. 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 He and his typically split their time living between [place] and [facility]. He is unable to travel to [place] while using PEG tube, which serves as additional motivation to eliminate its need. Subjective Observations The pt arrived on time and provided extensive and thorough case history, as well as goals. He brought with him a list of his swallow exercises included in his HEP, as well as several questions, all of which were answered. Evaluation Liquids Trialed Thin Oral Phase Comments Oral Peripheral Exam: Mild lingual deviation to right was observed with tongue protrusion. No deviation was observed in other lingual tasks. Hyolaryngeal elevation was evaluated via palpation; elevation was WNL, anterior propulsion was minimal. All other structures were symmetrical and WNL of strength, coordination and ROM. Trials were limited to 1/2 tsp water by spoon administered by the pt. Further trials were discontinued for pt safety d/t silent nature of aspiration demonstrated on both MBS studies. Oral Phase: WNL with this limited trial. Pharyngeal Phase Comments No overt s/sx of aspiration were observed with this limited trial. However, silent aspiration cannot be ruled out without instrumental evaluation. Findings Dysphagia Type Severe Pharyngeal Dysphagia per pt report of MBSS results Rehabilitation Potential Good Impressions Per pt reports of MBSS findings, he presents with severe pharyngeal dysphagia including silent aspiration and requiring PEG tube feeding for safe consumption of nutrition and hydration. Although the pt did not show overt s/sx of aspiration with 1 trial of thin liquid by spoon, silent aspiration cannot be ruled out without instrumental evaluation. Based on improvement demonstrated from first to second MBS studies, the amount of time since radiation, and the pt's motivation and compliance with HEP, prognosis for further improvement is good. Diet Recommendations Liquids Order Ice Chips Only Diet Order NPO Medication Recommendations Not Recommended by Mouth Treatment Plan Placement Recommendations after Home Discharge Appropriate for Therapy Yes Therapy Recommendations Skilled intervention is medically necessary to improve the pt's swallow function and safety to resume oral consumption as primary source of nutrition and hydration. Therapy to include exercises to improve swallow function, compensatory swallow strategies to improve safety with oral consumption, and may include NMES and myofascial release modalities to improve function and safety. Therapy may also include evaluation of voice and treatment as indicated. Dysphagia Goals 1. The pt will perform exercises independently to increase strength, coordination and/or ROM of swallow musculature to improve swallow functiona and safety for oral consumption. 2. The pt will use compensatory swallow strategies independently to reduce risk of aspiration with oral consumption. 3. The pt will demonstrate swallow safety sufficient to resume oral consumption of foods and liquids and reduce or eliminate PEG tube dependence. 4. The pt will participate in evaluation of voice and treatment as indicated. PHYSICAL THERAPIST Follow Up 1x/wk for 12 weeks; Follow-up MBSS evaluation in 4-6 wks
--- NOTE | 2019-11-03 15:36 | ST.IPDYTX ---
Visit Care Team Role Provider Type Terry Mora MD Family Provider Physician Specialty: Cardiology Address: [address], [address], [place], [address] Email: [email or web address] Pedro Yañez MD Attending Provider Physician Primary Care Provider Specialty: Family Practice Address: [address] [facility], [address], [place], [address] Email: [email or web address] DROP WIRE OPERATOR Dysphagia Treatment DROP WIRE OPERATOR Dysphagia Treatment Start: 11/03/19 15:19 Freq: Status: Active Protocol: Document 11/03/19 15:20 LNK (Rec: 11/03/19 15:35 LNK [email or web address]) Dysphagia Treatment Session Time Visit Start Time 14:30 Visit Stop Time 15:15 Total Visit Minutes 45 Visit Information Visit Number 2 Plan of Care Dates 10/22/19 - 01/14/20 Setting Assessment Location Outpatient Care Visit Type Note Type Treatment Note Next Note Type Next Note Type Treatment Note Patient Information Identification Type Name,Picture Subjective Observations Pt had arrived on time and was in waiting area. Pleasant man . Treatment Treatment Activities No trials administered secondary to silent aspiration risk. Pt brought list of exercises and questions for discussion. Pt described in detail his current exercise program. He has increased duration of the exercise time and is consistent in his practice. Also there was discussion of vocal fold adduction exercises. The pt also had questions regarding the possibility of prosthesis implantation to augment vocal fold adduction. All of pt's questions were answered to his satisfaction. The pt is swallowing ice chips at home. Suggested that he add the supersupraglottic swallow strategy when he is swallowing ice chips. Free water protocol was discussed with written information provided to reduce risk of infection should pt be aspirating with PO ice chips. Assessment Patient Response to Treatment Excellent Rehab Potential Good Assessment of Improvement pt reports that there are some times during which his voice seems to be good and other times where he has no voice. Diet Recommendations Recommendations Continue Current Diet Liquids Order Ice Chips Only Treatment Plan Appropriate for Continued Therapy Yes Therapy Recommendations Skilled intervention is medically necessary to improve the pt's swallow function and safety to resume oral consumption as primary source of nutrition and hydration. Therapy to include exercises to improve swallow function, compensatory swallow strategies to improve safety with oral consumption, and may include NMES and myofascial release modalities to improve function and safety. Dysphagia Goals 1. The pt will perform exercises independently to increase strength, coordination and/or ROM of swallow musculature to improve swallow functional and safety for oral consumption. 2. The pt will use compensatory swallow strategies independently to reduce risk of aspiration with oral consumption. 3. The pt will demonstrate swallow safety sufficient to resume oral consumption of foods and liquids and reduce or eliminate PEG tube dependence. 4. The pt will participate in evaluation of voice and treatment as indicated.
--- NOTE | 2019-11-10 15:25 | ST.IPDYTX ---
Visit Care Team Role Provider Type Terry Mora MD Family Provider Physician Specialty: Cardiology Address: [address], [address], [place], [address] Email: [email or web address] Pedro Yañez MD Attending Provider Physician Primary Care Provider Specialty: Family Practice Address: [address] [facility], [address], [place], [address] Email: [email or web address] LEAD RUBY ON RAILS DEVELOPER Dysphagia Treatment LEAD RUBY ON RAILS DEVELOPER Dysphagia Treatment Start: 11/03/19 15:19 Freq: Status: Active Protocol: Document 11/10/19 14:32 LNK (Rec: 11/10/19 15:25 LNK [email or web address]) Dysphagia Treatment Session Time Visit Start Time 14:30 Visit Stop Time 15:15 Total Visit Minutes 45 Visit Information Visit Number 2 Plan of Care Dates 10/22/19 - 01/14/20 Setting Assessment Location Outpatient Care Visit Type Note Type Treatment Note Next Note Type Next Note Type Treatment Note Patient Information Identification Type Name,Picture Subjective Observations Pt had arrived on time and was in waiting area. Pleasant man . Treatment Liquids Trialed Thin Treatment Activities No trials administered secondary to silent aspiration risk. Pt brought list of exercises and questions for discussion. Pt described in detail his current exercise program. He has increased duration of the Shaker exercise time and is consistent in his practice. Added the rapid jaw movement exercise to regimen. Also there was discussion of vocal fold adduction exercises . The pt contacted the radiology department re: his MBS video, requesting that the video be sent to [facility]. Will f/u with radiology department as to if it has been received. Additionally Rojelio requested that the written MBS report(s ) be sent to as well. Have set a tentative MBS repeat study for ~mid-November. All of pt's questions were answered to his satisfaction. The pt continues to swallowing ice chips at home. He is using the the supersupraglottic swallow strategy when he is swallowing ice chips. Free water protocol was discussed with written information re: the importance of good oral hygeine to reduce risk of infection should pt be aspirating with PO ice chips. Assessment Patient Response to Treatment Excellent Rehab Potential Good Assessment of Improvement pt reports that there are some times during which his voice seems to be good and other times where he has no voice. Diet Recommendations Recommendations Continue Current Diet Liquids Order Ice Chips Only Diet Order NPO Medication Recommendations Not Recommended by Mouth Treatment Plan Placement Recommendation after Discharge Home Appropriate for Continued Therapy Yes Therapy Recommendations Skilled intervention is medically necessary to improve the pt's swallow function and safety to resume oral consumption as primary source of nutrition and hydration. Therapy to include exercises to improve swallow function, compensatory swallow strategies to improve safety with oral consumption, and may include NMES and myofascial release modalities to improve function and safety. Dysphagia Goals 1. The pt will perform exercises independently to increase strength, coordination and/or ROM of swallow musculature to improve swallow function and safety for oral consumption. 2. The pt will use compensatory swallow strategies independently to reduce risk of aspiration with oral consumption. 3. The pt will demonstrate swallow safety sufficient to resume oral consumption of foods and liquids and reduce or eliminate PEG tube dependence. 4. The pt will participate in evaluation of voice and treatment as indicated. Follow Up Plan 1x/wk for 12 weeks; Follow-up MBSS evaluation in 4-6 wks
--- NOTE | 2019-11-17 16:37 | ST.IPDYTX ---
Visit Care Team Role Provider Type Terry Mora MD Family Provider Physician Specialty: Cardiology Address: [address], [address], [place], [address] Email: [email or web address] Pedro Yañez MD Attending Provider Physician Primary Care Provider Specialty: Family Practice Address: [address] [facility], [address], [place], [address] Email: [email or web address] SENIOR OUTSIDE SALES REPRESENTATIVE Dysphagia Treatment SENIOR OUTSIDE SALES REPRESENTATIVE Dysphagia Treatment Start: 11/03/19 15:19 Freq: Status: Active Protocol: Document 11/17/19 16:26 LNK (Rec: 11/17/19 16:37 LNK [email or web address]) Dysphagia Treatment Session Time Visit Start Time 14:30 Visit Stop Time 15:00 Total Visit Minutes 30 Visit Information Visit Number 2 Plan of Care Dates 10/22/19 - 01/14/20 Setting Assessment Location Outpatient Care Visit Type Note Type Treatment Note Next Note Type Next Note Type Treatment Note Patient Information Identification Type Name,Picture Subjective Observations Pt had arrived on time and was in waiting area. Pleasant man . Treatment Liquids Trialed Thin Treatment Activities No trials administered secondary to silent aspiration risk. We discussed his voice status. He continues to do vocal fold adduction exercises . The pt's MBS video from radiology department has not been sent to . Contacted our image storage dept, who were able to get the video and the report pt continues exercises daily for voice and swallowing. Will schedule MBS in mid November Assessment Patient Response to Treatment Excellent Rehab Potential Good Assessment of Improvement Pt described his voice as continuing to be hoarse or aphonic. He also reported that the exercises are getting easier. he has noticed that they are more automatic now. He is hopeful. Diet Recommendations Recommendations Continue Current Diet Liquids Order Ice Chips Only Diet Order NPO Medication Recommendations Not Recommended by Mouth Treatment Plan Appropriate for Continued Therapy Yes Therapy Recommendations Skilled intervention is medically necessary to improve the pt's swallow function and safety to resume oral consumption as primary source of nutrition and hydration. Therapy to include exercises to improve swallow function, compensatory swallow strategies to improve safety with oral consumption, and may include NMES and myofascial release modalities to improve function and safety. Dysphagia Goals 1. The pt will perform exercises independently to increase strength, coordination and/or ROM of swallow musculature to improve swallow function and safety for oral consumption. 2. The pt will use compensatory swallow strategies independently to reduce risk of aspiration with oral consumption. 3. The pt will demonstrate swallow safety sufficient to resume oral consumption of foods and liquids and reduce or eliminate PEG tube dependence. 4. The pt will participate in evaluation of voice and treatment as indicated. Follow Up Plan 1x/wk for 12 weeks; Follow-up MBSS evaluation in 4-6 wks
--- NOTE | 2019-11-28 12:32 | ST.IPDYTX ---
Visit Care Team Role Provider Type Terry Mora MD Family Provider Physician Specialty: Cardiology Address: [address], [address], [place], [address] Email: [email or web address] Pedro Yañez MD Attending Provider Physician Primary Care Provider Specialty: Family Practice Address: [address] [facility], [address], [place], [address] Email: [email or web address] HYDRO SPRAYER OPERATOR Dysphagia Treatment HYDRO SPRAYER OPERATOR Dysphagia Treatment Start: 11/03/19 15:19 Freq: Status: Active Protocol: Document 11/28/19 12:24 GLADIS (Rec: 11/28/19 12:31 GLADIS [email or web address]) Dysphagia Treatment Session Time Visit Start Time 10:30 Visit Stop Time 11:15 Total Visit Minutes 45 Visit Information Visit Number 3 Plan of Care Dates 10/22/19 - 01/14/20 Setting Assessment Location Outpatient Care Visit Type Note Type Treatment Note Next Note Type Next Note Type Treatment Note Patient Information Identification Type Name,Picture Subjective Observations Pt had arrived on time and was in waiting area. Pleasant man . Treatment Liquids Trialed Thin Treatment Activities No trials administered secondary to silent aspiration risk. We discussed his voice status. He continues to do swallow and vocal fold adduction exercises. The pt's MBS video from radiology department has been received and was reviewed with the pt. Radiologist report of MBS was also received, but HYDRO SPRAYER OPERATOR report was not. The pt expressed intention to contact HYDRO SPRAYER OPERATOR at and request copy to be faxed to . Education was provided RE previous MBS findings (per video review) and POC discussed. Agreed to pursue MBS for re-evaluation of swallow function and safety, including risk of silent aspiration, and to guide POC. Discussed consideration of NMES treatment and VF augmentation, pending MBS results and pt agreement and stimulability. Request for MBS orders were sent to Dr. Yañez . The pt reported occasional use of free water protocol. Reviewed oral hygiene as related to that, as well as trained pt in steps of super- supraglottic swallow strategie and their purposes. Pt verbalized understanding. Assessment Patient Response to Treatment Excellent Rehab Potential Good Assessment of Improvement The pt was participatory in review of MBS and POC discussions. Will contact HYDRO SPRAYER OPERATOR to obtain previous MBS report. Pt is agreeable to and eager for MBS re-evaluation. He seems to have realistic goals and understands the possibility of continued dependence on tube feeding. Diet Recommendations Recommendations Continue Current Diet Liquids Order Ice Chips Only Diet Order NPO Medication Recommendations Not Recommended by Mouth Treatment Plan Placement Recommendation after Discharge Home Appropriate for Continued Therapy Yes Therapy Recommendations Skilled intervention is medically necessary to improve the pt's swallow function and safety to resume oral consumption as primary source of nutrition and hydration. Therapy to include exercises to improve swallow function, compensatory swallow strategies to improve safety with oral consumption, and may include NMES and myofascial release modalities to improve function and safety. Dysphagia Goals 1. The pt will perform exercises independently to increase strength, coordination and/or ROM of swallow musculature to improve swallow function and safety for oral consumption. 2. The pt will use compensatory swallow strategies independently to reduce risk of aspiration with oral consumption. 3. The pt will demonstrate swallow safety sufficient to resume oral consumption of foods and liquids and reduce or eliminate PEG tube dependence. 4. The pt will participate in evaluation of voice and treatment as indicated. Follow Up Plan 1x/wk for 12 weeks; Follow-up MBSS evaluation in 4-6 wks
--- NOTE | 2019-12-05 11:54 | ST.IPDYTX ---
Visit Care Team Role Provider Type Terry Mora MD Family Provider Physician Specialty: Cardiology Address: [address], [address], [place], [address] Email: [email or web address] Pedro Yañez MD Attending Provider Physician Primary Care Provider Specialty: Family Practice Address: [address] [facility], [address], [place], [address] Email: [email or web address] BUSINESS BROKER Dysphagia Treatment BUSINESS BROKER Dysphagia Treatment Start: 11/03/19 15:19 Freq: Status: Active Protocol: Document 12/05/19 11:39 GLADIS (Rec: 12/05/19 11:54 GLADIS [email or web address]) Dysphagia Treatment Session Time Visit Start Time 10:30 Visit Stop Time 11:15 Total Visit Minutes 45 Visit Information Visit Number 4 Plan of Care Dates 10/22/19 - 01/14/20 Insurance Information Medicare Setting Assessment Location Outpatient Care Visit Type Note Type Treatment Note Next Note Type Next Note Type Treatment Note Patient Information Identification Type Name,Picture Subjective Observations Pt arrived on time. MBS has been scheduled for 12/11 with this clinician. BUSINESS BROKER report from MBS performed on 09/05/19 has been received and filed in pt's chart. The pt requested a copy, which was provided to him. Treatment Liquids Trialed Thin Administration Type Controlled Cup Sip,Self- Feeding Pharyngeal Strategies Sitting Upright (90 deg), Supersupraglottic Swallow, Small Bites and Sips Treatment Activities Reviewed with and educated pt of BUSINESS BROKER report of 09/05/19 MBS report (see hard chart for details). Pt had questions RE supersupraglottic swallow strategy, MBSS and POC depending on next week's MBSS results. Pt also asked about success reate of thyroplasty and what is considered by research to constitute success. This BUSINESS BROKER was unable to answer that question but agreed to research. Pt also encouraged to ask Dr. Meyer about this, should he eventually be seen by Dr. Meyer. All other questions were answered to his satisfaction. Pt performed supersupraglottic swallow strategy with small sips (1/4 tsp) of water without immediate overt s/sx of aspiration. Pt initiated performance of Grazyna with small of water in mouth. This was corrected prior to completion and pt was educated on proper form and risks of aspiration when performing the exercise with water. Pt verbalized and demonstrated understanding of exercise performance with saliva only. Pt ok'd to perform supersupraglottic swallow of water sips after every 2-3 reps. Education provided on importance of oral care w/ Rosa water protocol. Pt verbalized understanding. Pt performed Shaker with head hold of 60 then 45 sec; elevation reps x10 with modification of form to reduce shoulder involvement. Pt able to perform correctly but with limited chin tuck d/t radiation effects. Assessment Patient Response to Treatment Excellent Rehab Potential Good Assessment of Improvement Pt is highly compliant with HEP. Asks excellent questions and responsive to feedback and education. Looking forward to MBS next week. If good progress has been made, plan to continue exercise program with possible inclusion of NMES. If little or no progress is apparent, anticipate referring to to Dr. Meyer for further evaluation and discussion of options. Pt in agreement with this plan. Diet Recommendations Recommendations Continue Current Diet Liquids Order Ice Chips Only Diet Order NPO Medication Recommendations Not Recommended by Mouth Aspiration Precautions Recommended Precautions Small Bites/Sips, Supersupraglottic Swallow Additional Precautions Rosa water protocol only Treatment Plan Placement Recommendation after Discharge Home Appropriate for Continued Therapy Yes Therapy Recommendations Skilled intervention is medically necessary to improve the pt's swallow function and safety to resume oral consumption as primary source of nutrition and hydration. Therapy to include exercises to improve swallow function, compensatory swallow strategies to improve safety with oral consumption, and may include NMES and myofascial release modalities to improve function and safety. Dysphagia Goals 1. The pt will perform exercises independently to increase strength, coordination and/or ROM of swallow musculature to improve swallow function and safety for oral consumption. 2. The pt will use compensatory swallow strategies independently to reduce risk of aspiration with oral consumption. 3. The pt will demonstrate swallow safety sufficient to resume oral consumption of foods and liquids and reduce or eliminate PEG tube dependence. 4. The pt will participate in evaluation of voice and treatment as indicated. Follow Up Plan [facility] 12/12/19
--- NOTE | 2019-12-13 17:13 | ST.IPDYTX ---
Visit Care Team Role Provider Type Terry Mora MD Family Provider Physician Specialty: Cardiology Address: [address], [address], [place], [address] Email: [email or web address] Pedro Yañez MD Attending Provider Physician Primary Care Provider Specialty: Family Practice Address: [address] [facility], [address], [place], [address] Email: [email or web address] COMPOSITE ENGINEER Dysphagia Treatment COMPOSITE ENGINEER Dysphagia Treatment Start: 11/03/19 15:19 Freq: Status: Active Protocol: Document 12/12/19 16:41 GLADIS (Rec: 12/13/19 17:11 GLADIS [email or web address]) Dysphagia Treatment Session Time Visit Start Time 09:05 Visit Stop Time 09:50 Total Visit Minutes 45 Visit Information Visit Number 5 Plan of Care Dates 10/22/19 - 01/14/20 Insurance Information Medicare Setting Assessment Location Outpatient Care Visit Type Note Type Treatment Note Next Note Type Next Note Type Treatment Note Patient Information Identification Type Name,Picture Subjective Observations Pt seen for dysphagia therapy following MBS. Treatment Liquids Trialed Thin Oral Strategies Upright at 90 degrees Pharyngeal Strategies Sitting Upright (90 deg), Supersupraglottic Swallow Treatment Activities Educated pt on MBSS results, including review of MBSS video . Pt verbalized understanding, although stated he needed time to process information as it was not as positive as he had hoped. Discussed possibility of NMES treatment in conjuction with swallow exercises. Performed assessment trial of NMES with electrodes placed at VitalStim 3a position at 4.0-4.5 mA targeting UES opening, Hyolaryngeal excursion, and tongue base retraction to reduce pharyngeal residue and increase laryngeal closure. During trial, muscular contraction was visualized at lower left side of thyroid notch only. Pt reported sensory input at and between left side electrodes. No contraction was observed at right side, nor did the pt report any physical sensation at right side of neck. Educated pt RE thickened liquids and trained him in thickening process using OTC powdered thickener. Discussed liquids that are naturally nectar-thick as well. Pt verbalized understanding. Assessment Patient Response to Treatment Fair Rehab Potential Fair Assessment of Improvement Results of MBS indicated improved but not complete airway protection, as compared to previous MBS results, and significant pharyngeal residue secondary to reduced stripping wave and hyolaryngeal forward excursion , incomplete epiglottic inversion, and minimal extension and duration of UES. 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 Improvement results from dysphagia therapy and the pt's excellent compliance with swallow exercises. Improvements allow the pt to participate in occasional minimal oral trials of NTL and pureed textures at 1/4 - 1/2 tsp at a time with use of supraglottic swallow strategy and 2-4 swallows per bolus. Results are not sufficient to allow the pt to safely resume oral intake as a significant source of nutrition and hydration. The pt was minimally responsive to trial of NMES treatment. Will consult with COMPOSITE ENGINEER Dr. Sofi Yanes, who has also treated this patient, to determine best course of action and if the pt is a qualified candidate for NMES treatment. Will f/u with pt in two weeks, his earliest opportunity. Diet Recommendations Recommendations Continue Current Diet Liquids Order Ice Chips Only Diet Order NPO Medication Recommendations Not Recommended by Mouth Comments Minimal occasional trials of 1 /4-1/2 tsp NTL/pureed texture w/ precautions Aspiration Precautions Recommended Precautions Upright at 90 Degrees,Small Bites/Sips,Double Swallow, Supersupraglottic Swallow Treatment Plan Placement Recommendation after Discharge Home Appropriate for Continued Therapy Yes Therapy Recommendations Skilled intervention is medically necessary to improve the pt's swallow function and safety to resume oral consumption as primary source of nutrition and hydration. Therapy to include exercises to improve swallow function, compensatory swallow strategies to improve safety with oral consumption, and may include NMES and myofascial release modalities to improve function and safety. Dysphagia Goals 1. The pt will perform exercises independently to increase strength, coordination and/or ROM of swallow musculature to improve swallow function and safety for oral consumption. 2. The pt will use compensatory swallow strategies independently to reduce risk of aspiration with oral consumption. 3. The pt will demonstrate swallow safety sufficient to resume oral consumption of foods and liquids and reduce or eliminate PEG tube dependence. 4. The pt will participate in evaluation of voice and treatment as indicated.
--- NOTE | 2020-02-14 18:18 | ST.OPRE ---
Visit Care Team Role Provider Type Terry Mora MD Family Provider Physician Specialty: Cardiology Address: [address], [address], [place], [address] Email: [email or web address] Pedro Yañez MD Attending Provider Physician Primary Care Provider Specialty: Family Practice Address: [address] [facility], [address], [place], [address] Email: [email or web address] Speech-Language Pathology Evaluation/Summary Document 02/14/20 17:51 GLADIS (Rec: 02/14/20 18:16 GLADIS [email or web address]) Dysphagia Treatment Session Time Visit Start Time 16:30 Visit Stop Time 15:20 Total Visit Minutes 50 Visit Information Visit Number 6 Plan of Care Dates 02/14/20 - 05/16/20 Insurance Information Medicare Setting Assessment Location Outpatient Care Visit Type Note Type Re-Evaluation Next Note Type Next Note Type Treatment Note Patient Information Identification Type Name,Picture Subjective Observations On 01/25/20, this RELOCATION DIRECTOR consulted via phone with the pt's previous RELOCATION DIRECTOR, Bozena Camara of , RE results of most recent MBS and pt's prognosis and POC. Clinician's agreed that NMES would not likely benefit the pt. Based on research and Ms. Camara's experience with EMST targeting improved swallow function, agreed to pursue trial of EMST using the EMST-150 device. Ms Satnam Camara had already spoken with the pt about this potential treatment, and he was in agreement and also agreeable to purchasing the device. Today, the pt returned for treatment with re-opening of clinic since closure d/t COVID -19. He arrived on time with EMST-150 device and instructions for use. He had questions related to vocal exercises and c/o inconsistent vocal quality including raspy voice at fundamental frequency during sustained phonation and unexpected high pitch of speaking voice occasionally. In previous ST services, the pt was recommended to perform laryngeal massage and asked if this was still recommended. Treatment Liquids Trialed Thin Administration Type Controlled Cup Sip,Self- Feeding Oral Strategies Upright at 90 degrees Pharyngeal Strategies Sitting Upright (90 deg), Supersupraglottic Swallow Treatment Activities Voice: Education was provided with review of vocal exercise instructions. The pt perdformed sustained phonation at fundamental frequency, exhibiting consistent hoarsenss of voice; improved at higher pitches. Pt was instructed to perform exercise at higher pitches with clear voice and gradually lower the pitch over time, completing task with clear vocal quality only. The pt also performed VF closure exercise (staccato ah with palms pressing together ). Vocal quality was harsh and strained. Trained pt in using breath support for power of voice and keep VFs relaxed by holding breath for 1 sec prior to vowel onset to reduce harsh VF contact. Pt returned demonstration with improved vocal quality and verbalized understanding. Dysphagia: Callibrated EMST- 150 device to pt for initiation of EMST targeting improved efficiency of swallow mechanism and swallow safety. Device was callibrated without difficulty, and pt verbalized understanding of training protocol over the next 5 wks, which includes 25 training breaths (effortful exhalation through the EMST device) per day, 5 days/wk for 5 weeks with gradual increase of resisitance. He verbalized intention to begin exercises on Wednesday for ease of tracking 5 consecutive days of exercise/wk for the next 5 wks . Assessed pt's swallow function with 2 trials of 1/4 tsp each smooth pudding for baseline swallow function and sensory input. The pt reported feeling pharyngeal residue and required 3-4 swallows per bolus to clear. He exhibited strong delayed cough x1 following trials, indicating likely penetration of pharyngeal residue. All the pt's questions were answered. Agreed to f/u in 3 wks. Assessment Patient Response to Treatment Fair Rehab Potential Fair Assessment of Improvement The pt continues to be high risk of aspiration. He demonstrates excellent understanding of all education and exercise training. The pt did exhibit intermittent hoarseness of voice over course of session which improved with throat clearing. The pt demonstrated good understanding of vocal exercises and ability to modify to improve quality of voice and reduced glottal attacks which may reduce vocal quality. Diet Recommendations Recommendations Continue Current Diet Liquids Order Ice Chips Only Diet Order NPO Medication Recommendations Not Recommended by Mouth Comments Minimal occasional trials of 1 /4-1/2 tsp NTL/pureed texture w/ precautions Aspiration Precautions Recommended Precautions Upright at 90 Degrees,Small Bites/Sips,Double Swallow, Supersupraglottic Swallow Treatment Plan Placement Recommendation after Discharge Home Appropriate for Continued Therapy Yes Therapy Recommendations Skilled intervention is medically necessary to improve the pt's swallow function and safety to resume oral consumption as primary source of nutrition and hydration. Therapy to include exercises to improve swallow function, compensatory swallow strategies to improve safety with oral consumption, including EMST and myofascial release modalities to improve function and safety. Discontinue NMES treatment. Dysphagia Goals 1. The pt will perform exercises independently to increase strength, coordination and/or ROM of swallow musculature to improve swallow function and safety for oral consumption. 2. The pt will use compensatory swallow strategies independently to reduce risk of aspiration with oral consumption. 3. The pt will demonstrate swallow safety sufficient to resume oral consumption of foods and liquids and reduce or eliminate PEG tube dependence. 4. The pt will participate in evaluation of voice and treatment as indicated.
--- NOTE | 2020-03-04 17:57 | ST.IPDYTX ---
Visit Care Team Role Provider Type Terry Mora MD Family Provider Physician Specialty: Cardiology Address: [address] [place] [address], [address], [place], [address] Email: [email or web address] Pedro Yañez MD Attending Provider Physician Primary Care Provider Specialty: Family Practice Address: [address] [facility], [address], [place], [address] Email: [email or web address] ORTHOTIC FITTER Dysphagia Treatment ORTHOTIC FITTER Dysphagia Treatment Start: 11/03/19 15:19 Freq: Status: Active Protocol: Document 03/04/20 14:53 GLADIS (Rec: 03/04/20 15:24 GLADIS [email or web address]) Dysphagia Treatment Session Time Visit Start Time 14:30 Visit Stop Time 15:15 Total Visit Minutes 45 Visit Information Visit Number 7 Plan of Care Dates 02/14/20 - 05/16/20 Insurance Information Medicare Setting Assessment Location Outpatient Care Visit Type Note Type Re-Evaluation Next Note Type Next Note Type Treatment Note Patient Information Identification Type Name,Picture Subjective Observations On 01/25/20, this ORTHOTIC FITTER consulted via phone with the pt's previous ORTHOTIC FITTER, Bozena Camara of , RE results of most recent MBS and pt's prognosis and POC. Clinician's agreed that NMES would not likely benefit the pt. Based on research and Ms. Camara's experience with EMST targeting improved swallow function, agreed to pursue trial of EMST using the EMST-150 device. Ms Satnam Camara had already spoken with the pt about this potential treatment, and he was in agreement and also agreeable to purchasing the device. Today, the pt returned for treatment with re-opening of clinic since closure d/t COVID -19. He arrived on time with EMST-150 device and instructions for use. He had questions related to vocal exercises and c/o inconsistent vocal quality including raspy voice at fundamental frequency during sustained phonation and unexpected high pitch of speaking voice occasionally. In previous ST services, the pt was recommended to perform laryngeal massage and asked if this was still recommended. Treatment Liquids Trialed Thin Administration Type Controlled Cup Sip,Self- Feeding Oral Strategies Upright at 90 degrees Pharyngeal Strategies Sitting Upright (90 deg), Supersupraglottic Swallow Treatment Activities Voice: Pt reported improved vocal quality, which was also perceived by this therapist. Pt exhibited steady pitch, no unintentional pitch changes. Vocal quality was mildly weak, minimally breathy, which is some improvement since SOC. The pt reported compliance with voice exercises, which appears to be of benefit. Dysphagia: Pt performed EMST- 150 exercises independently per prescribed protocol. This is day 1 of 3rd week of protocol. The pt has increased resistance each week by a 1/4 turn. He reports feeling equal amount of effort for each increased level, indicating improved strength to tolerate incresed tension. No oral trials administered at today's session. Discussed POC. Will f/u with pt in 3 wks , at end of 5-wk intensive exercise program and start of maintenance program. Assessment Patient Response to Treatment Fair Rehab Potential Fair Assessment of Improvement The pt continues to be high risk of aspiration. He demonstrates excellent understanding of all education and exercise training. The pt exhibited improved vocal quality. Suspect previous increased hoarseness may have been from over exercising. Current vocal exercise HEP is appropriate and will be continued. The pt also demonstrated excellent independence with EMST exercises and exhibits improved strength, able to perform tasks with increasing resistance, as per protocol. Diet Recommendations Recommendations Continue Current Diet Liquids Order NPO Diet Order NPO Medication Recommendations Not Recommended by Mouth Comments Minimal occasional trials of 1 /4-1/2 tsp NTL/pureed texture w/ precautions Aspiration Precautions Recommended Precautions Upright at 90 Degrees,Small Bites/Sips,Double Swallow, Supersupraglottic Swallow Treatment Plan Placement Recommendation after Discharge Home Appropriate for Continued Therapy Yes Therapy Recommendations Skilled intervention is medically necessary to improve the pt's swallow function and safety to resume oral consumption as primary source of nutrition and hydration. Therapy to include exercises to improve swallow function, compensatory swallow strategies to improve safety with oral consumption, including EMST to improve function and safety. Dysphagia Goals 1. The pt will perform exercises independently to increase strength, coordination and/or ROM of swallow musculature to improve swallow function and safety for oral consumption. 2. The pt will use compensatory swallow strategies independently to reduce risk of aspiration with oral consumption. 3. The pt will demonstrate swallow safety sufficient to resume oral consumption of foods and liquids and reduce or eliminate PEG tube dependence. 4. The pt will participate in evaluation of voice and treatment as indicated.
--- NOTE | 2020-03-25 15:51 | ST.IPDYTX ---
Visit Care Team Role Provider Type Terry Mora MD Family Provider Physician Specialty: Cardiology Address: [address], [address], [place], [address] Email: [email or web address] Pedro Yañez MD Attending Provider Physician Primary Care Provider Specialty: Family Practice Address: [facility], [address], [place], [address] Email: [email or web address] PRECISION HONING MACHINE OPERATOR Dysphagia Treatment PRECISION HONING MACHINE OPERATOR Dysphagia Treatment Start: 11/03/19 15:19 Freq: Status: Active Protocol: Document 03/25/20 14:50 GLADIS (Rec: 03/25/20 14:59 GLADIS [email or web address]) Dysphagia Treatment Session Time Visit Start Time 14:30 Visit Stop Time 15:15 Total Visit Minutes 45 Visit Information Visit Number 8 Plan of Care Dates 02/14/20 - 05/16/20 Insurance Information Medicare Setting Assessment Location Outpatient Care Visit Type Note Type Re-Evaluation Next Note Type Next Note Type Treatment Note Patient Information Identification Type Name,Picture Subjective Observations Pt arrived on time with EMST device. He has followed the 5- wk intensive exercise program as prescribed, advancing the tension of the device by 1/4 turn each week. He stated the current level was difficult but felt he was getting most but not all of his breath through the device. He questioned if continuing with the intensive, 5x/wk training program rather than dropping to the 3x/wk maintenance program at this time would have detrimental effects. He also reported increased trials at home of pudding (4-5 tsp at a time) and occasional thin coffee. He observed no coughing and ability to swallow coffee in one swallow and pudding in 2-3 swallows per bolus. The pt also reported generally improved vocal quality with occasional continued episodes of roughness and unexplained pitch changes (up ~1 octave). He continues to sense the onset of higher pitch prior to vocal onset. Treatment Liquids Trialed Thin Solids Trialed Puree,Dysphagia Mechanical Administration Type Controlled Cup Sip,Self- Feeding Oral Strategies Upright at 90 degrees Pharyngeal Strategies Sitting Upright (90 deg), Double Swallow, Supersupraglottic Swallow Treatment Activities Voice: Fundamental frequency was 199 Hz with range of 179- 219 Hz (norm = 85-196 Hz). Avg loudness 72 dB, WNL. Vocal quality was perceived WNL. Recommended pt swallow prior to voicing when he senses the voice is going to be higher than normal, in order to reset the larynx. Unclear what cause of this is. The pt did state that resetting with a swallow or other technique does bring the voice back to normal pitch. Dysphagia: Assessed device setting and determined pt had excessive residual air following exhale through the device, indicating too high of tension. Decreased tension by 1/4 turn, which allowed pt to exhale more fully and appropriately. He verbalized and demonstrated understanding of target function to indicate correct tension setting. He completed 5 sets of 5 reps. Skilled feedback and education was provided to answer the pt's questions. Given the progress he has made and guidelines of EMST-150 protocol, no detrimental effects of continuing 5x/wk exercise is expected. Recommended the pt continue as desired for up to 3 wks with transition thereafter to 3x/wk maintenance program. Repeat MBSS after pt has been on maintenance program for at least 3 wks to demonstrate realistic long-term function. Pt was in agreement. Clinical bedside swallow assessment was performed with trials of 1 tsp pudding, single pieces of diced fruit, and thin liquid. Pt consumed liquid in single swallow x1 with delated throat clearing. Implemented double swallow, and pt consumed liquid without overt s/sx of aspiration x3 trials. He tolerated pudding and fruit with 3 swallows per bolus, delayed throat clearing x1 per each substance in total of 6 pudding trials and 3 fruit trials. He reported greater ease with swallow. Discussed POC. Will f/u with pt in 3 wks, at which time it is anticipated orders for MBSS will be made. Assessment Patient Response to Treatment Good Rehab Potential Good Assessment of Improvement The pt is exhibiting improved swallow function as demonstrated via clinical trials. Able to trial advanced texture today with results consistent with pureed texture . The pt expressed greater ease with swallow and minimal delayed throat clearing only. Suspect pharyngeal residue still present but decreased. The pt continues to be at moderate risk of aspiration. Anticipate assessment via MBSS in ~6 wks. The pt also has demonstrated continued independence of EMST program, responsive to adjustements and associated feedback/training to determine appropriate tension level. Anticipate further gains may be made. Agreeable to pt's expressed desire to continue intensive training for up to 3 more wks with transition to maintenance program thereafter . The pt exhibited greater consistency of improved vocal quality, with occasional episodes of roughness and unexpected changes in pitch. Current vocal exercise HEP is appropriate and will be continued. The pt also demonstrated excellent independence with EMST exercises and exhibits improved strength, able to perform tasks with increasing resistance, as per protocol. Diet Recommendations Recommendations Continue Current Diet Liquids Order NPO Diet Order NPO Medication Recommendations Not Recommended by Mouth Comments Home trials of pureed and dysphagia mechanical textures ok Additional Dietary Needs Chopped Food,Single Sips,No Straws Aspiration Precautions Recommended Precautions Upright at 90 Degrees,Small Bites/Sips,Double Swallow, Supersupraglottic Swallow Additional Precautions Minimize distractions during oral intake. Treatment Plan Placement Recommendation after Discharge Home Appropriate for Continued Therapy Yes Therapy Recommendations Skilled intervention is medically necessary to improve the pt's swallow function and safety to resume oral consumption as primary source of nutrition and hydration. Therapy to include exercises to improve swallow function, compensatory swallow strategies to improve safety with oral consumption, including EMST to improve function and safety. Dysphagia Goals 1. The pt will perform exercises independently to increase strength, coordination and/or ROM of swallow musculature to improve swallow function and safety for oral consumption. 2. The pt will use compensatory swallow strategies independently to reduce risk of aspiration with oral consumption. 3. The pt will demonstrate swallow safety sufficient to resume oral consumption of foods and liquids and reduce or eliminate PEG tube dependence. 4. The pt will participate in evaluation of voice and treatment as indicated. Follow Up Plan F/U in 3 wks. Antivipate MBSS evaluation in ~6 wks.
--- NOTE | 2020-04-15 15:18 | ST.IPDYTX ---
Visit Care Team Role Provider Type Terry Mora MD Family Provider Physician Specialty: Cardiology Address: [address], [address], [place], [address] Email: [email or web address] Pedro Yañez MD Attending Provider Physician Primary Care Provider Specialty: Family Practice Address: [address] [facility], [address], [place], [address] Email: [email or web address] PERSONAL PROPERTY ASSESSOR Dysphagia Treatment PERSONAL PROPERTY ASSESSOR Dysphagia Treatment Start: 11/03/19 15:19 Freq: Status: Active Protocol: Document 04/15/20 15:09 GLADIS (Rec: 04/15/20 15:15 GLADIS [email or web address]) Dysphagia Treatment Session Time Visit Start Time 15:32 Visit Stop Time 16:07 Total Visit Minutes 35 Visit Information Visit Number 9 Plan of Care Dates 02/14/20 - 05/16/20 Insurance Information Medicare Setting Assessment Location Outpatient Care Visit Type Note Type Re-Evaluation Next Note Type Next Note Type Treatment Note Patient Information Identification Type Name,Picture Subjective Observations Pt arrived on time with EMST device. He reported following plan as agreed upon at last session and has since been able to successfully advance resistance in device to the level that was at that time determined to be too difficult . Treatment Liquids Trialed Thin Solids Trialed Puree,Dysphagia Mechanical Administration Type Controlled Cup Sip,Self- Feeding Oral Strategies Upright at 90 degrees Pharyngeal Strategies Sitting Upright (90 deg), Double Swallow, Supersupraglottic Swallow Treatment Activities Dysphagia: Consulted with pt on POC. Based on improved strength to date, agreed the pt will continue with strength training for 2 more weeks and then initiate maintenance program consisting of 3 sessions/wk. After 3-4 wks of maintenance, will administer follow-up MBS for assessment of progress and current swallow function/safety in order to guide POC. If successful, will initiate transition to oral intake for nutrition/hydration purposes. Voice: Pt had questions related to vocal adduction exercises. Questions were answered and clarification to instructions provided orally with demonstration. The pt verbalized and demonstrated discrimination of correct vs incorrect performance and ability to perform as instructed. Assessment Patient Response to Treatment Good Rehab Potential Good Assessment of Improvement The pt continues to demonstrate improved expiratory muscle strength, as measured by ability to perform tasks with increased resistance. Questions RE vocal exercises were addressed. The pt continues to have intermittent hoarseness of voice. Recommend pt see Dr. Meyer at Laryngology when able for evaluation and consultation. Diet Recommendations Recommendations Continue Current Diet Liquids Order Nothing by Mouth Diet Order NPO Medication Recommendations Not Recommended by Mouth Comments Home trials of pureed and dysphagia mechanical textures ok Additional Dietary Needs Chopped Food,Single Sips,No Straws Aspiration Precautions Recommended Precautions Upright at 90 Degrees,Small Bites/Sips,Double Swallow, Supersupraglottic Swallow Additional Precautions Minimize distractions during oral intake. Treatment Plan Placement Recommendation after Discharge Home Appropriate for Continued Therapy Yes Therapy Recommendations Skilled intervention is medically necessary to improve the pt's swallow function and safety to resume oral consumption as primary source of nutrition and hydration. Therapy to include exercises to improve swallow function, compensatory swallow strategies to improve safety with oral consumption, including EMST to improve function and safety. Dysphagia Goals 1. The pt will perform exercises independently to increase strength, coordination and/or ROM of swallow musculature to improve swallow function and safety for oral consumption. 2. The pt will use compensatory swallow strategies independently to reduce risk of aspiration with oral consumption. 3. The pt will demonstrate swallow safety sufficient to resume oral consumption of foods and liquids and reduce or eliminate PEG tube dependence. 4. The pt will participate in evaluation of voice and treatment as indicated. Follow Up Plan F/U in 3 wks. Anticipate MBSS evaluation in 5-6 wks.
--- NOTE | 2020-04-30 12:39 | ST.IPDYTX ---
Visit Care Team Role Provider Type Terry Mora MD Family Provider Physician Specialty: Cardiology Address: [address], [address], [place], [address] Email: [email or web address] Pedro Yañez MD Attending Provider Physician Primary Care Provider Specialty: Family Practice Address: [address] [facility], [address], [place], [address] Email: [email or web address] JOIST SETTER Dysphagia Treatment JOIST SETTER Dysphagia Treatment Start: 11/03/19 15:19 Freq: Status: Active Protocol: Document 04/30/20 12:37 GLADIS (Rec: 04/30/20 12:39 GLADIS [email or web address]) Dysphagia Treatment Visit Type Note Type Administrative Note Patient Information Subjective Observations Received email message from pt 04/29/20 informing he has transitioned from intensive EMST protocol to maintenance protocol. Request for MBSS orders were faxed to Dr. Yañez today for assessment of current function, tx benefits, and to determine if the pt can safely transition from tube feeding to oral intake. Pt was notified of this request by return email.
--- NOTE | 2020-05-30 17:28 | ST.IPDYTX ---
Visit Care Team Role Provider Type Terry Mora MD Family Provider Physician Specialty: Cardiology Address: [address], [address], [place], [address] Email: [email or web address] Pedro Yañez MD Attending Provider Physician Primary Care Provider Specialty: Family Practice Address: [address] [facility], [address], [place], [address] Email: [email or web address] ASSEMBLER [employer]ODUCTS Dysphagia Treatment [employer] Dysphagia Treatment Start: 11/03/19 15:19 Freq: Status: Active Protocol: Document 05/13/20 13:27 GLADIS (Rec: 05/13/20 13:31 GLADIS [email or web address]) Dysphagia Treatment Session Time Visit Start Time 12:30 Visit Stop Time 13:15 Total Visit Minutes 45 Visit Information Visit Number 10 Plan of Care Dates 05/13/20 - 08/13/20 Insurance Information Medicare Setting Assessment Location Outpatient Care Visit Type Note Type Progress Note Next Note Type Next Note Type Treatment Note Patient Information Identification Type Name,Picture Subjective Observations The pt arrived on time accompanied by his , Delilah, who arrived from [place] on Apr.27. The couple has completed a 14-day quarantine since her arrival. Today's session is to address the couple's questions related to the upcoming MBSS which is scheduled for . The pt transitioned with EMST exercises from intensive training (5s/wk) to maintenance program (3x/wk) two weeks ago. The couple reported the pt has been consuming up to 5 tsp of oral trials of pureed textures 1-2x/day. The pt stated he only noted difficulty with swallowing 1 time when he felt he was not paying adequate attention. Treatment Treatment Activities All questions were answered. Discussed oral trials, POC, MBSS scheduled for next week. No oral trials administered or objective measurements made. Assessment Patient Response to Treatment Good Rehab Potential Good Assessment of Improvement Improved tolerance of oral trials. Okay to increase number of trials throughout the day, with no more than 5 tsp at a time to minimize pharyngeal residue buildup and associated aspiration risk. Diet Recommendations Recommendations Continue Current Diet Liquids Order Nothing by Mouth Diet Order NPO Medication Recommendations Not Recommended by Mouth Comments Home trials of pureed and dysphagia mechanical textures ok Additional Dietary Needs Chopped Food,Single Sips,No Straws Aspiration Precautions Recommended Precautions Upright at 90 Degrees,Small Bites/Sips,Double Swallow, Supersupraglottic Swallow Additional Precautions Minimize distractions during oral intake. Treatment Plan Placement Recommendation after Discharge Home Appropriate for Continued Therapy Yes Therapy Recommendations Skilled intervention is medically necessary to improve the pt's swallow function and safety to resume oral consumption as primary source of nutrition and hydration. Therapy to include exercises to improve swallow function, compensatory swallow strategies to improve safety with oral consumption, including EMST to improve function and safety. Dysphagia Goals 1. The pt will perform exercises independently to increase strength, coordination and/or ROM of swallow musculature to improve swallow function and safety for oral consumption. 2. The pt will use compensatory swallow strategies independently to reduce risk of aspiration with oral consumption. 3. The pt will demonstrate swallow safety sufficient to resume oral consumption of foods and liquids and reduce or eliminate PEG tube dependence. 4. The pt will participate in evaluation of voice and treatment as indicated. Follow Up Plan F/U MBSS evaluation in 3-4 wks .
--- NOTE | 2020-06-03 15:29 | ST.IPDYTX ---
Visit Care Team Role Provider Type Terry Mora MD Family Provider Physician Specialty: Cardiology Address: [address], [address], [place], [address] Email: [email or web address] Pedro Yañez MD Attending Provider Physician Primary Care Provider Specialty: Family Practice Address: [address] [facility], [address], [place], [address] Email: [email or web address] SILVERWARE BUFFER Dysphagia Treatment SILVERWARE BUFFER Dysphagia Treatment Start: 11/03/19 15:19 Freq: Status: Active Protocol: Document 05/30/20 15:01 GLADIS (Rec: 06/03/20 15:23 GLADIS [email or web address]) Dysphagia Treatment Session Time Visit Start Time 14:05 Visit Stop Time 14:40 Total Visit Minutes 35 Visit Information Visit Number 11 Plan of Care Dates 05/13/20 - 08/13/20 Insurance Information Medicare Setting Assessment Location Outpatient Care Visit Type Note Type Discharge Summary Patient Information Identification Type Name,Picture Subjective Observations The pt and his were seen immediately following MBS procedure for discussion of results and POC. The pt informed that he and his would be traveling to [place], where they have a home, in June for 3-4 months. Treatment Treatment Activities Educated pt/spouse RE MBS findings including visual review of MBS video, recommendations for continued PEG tube feeding as primary source of nutrition and hydration, and recommendations for amount and consistencies of occasional oral trials for pleasure intake. The pt's had questions related to food types/consistencies and methods of preparing foods in order to meet recommendations; all questions were answered. Education was also provided RE overt (coughing, throat clearing, wet vocal quality, choking) and clinical s/sx of aspiration, including temperature spikes after oral intake and symptoms of congestion and/or pneumonia. If such symptoms occur with any significant frequency, oral intake should be discontinued. The pt and his verbalized understanding. Discussed POC: Although results of EMST were not as profound as hoped for, minimal improvement in strength and ROM of hyolaryngeal and epiglottic movement were observed. Therefore, it was recommended that the pt continue with intensive EMST protocol for the duration of his time in [place]. Given the length of that time, it was agreed that the pt would be discharged from outpatient therapy at this time and return for re-evaluation via MBS upon his return to the [facility] . If no further improvement of swallow function is observed at that time, the pt expressed intention to then pursue consultation with Dr. Meyer at [facility] and/or [facility]. The SILVERWARE BUFFER was in agreement with this plan. Assessment Patient Response to Treatment Fair Rehab Potential Fair Assessment of Improvement Minimal improvement in hyolaryngeal and epiglottic strength and ROM was observed during MBS as a results of EMST. However, the pt remains at moderate to high risk of aspiration and should continue with PEG tube feeding for primary nutrition and hydration. The pt does demonstrate swallow safety sufficient for occasional small amounts (no more than a fist size at a time, taken in 1/2 - 1 tsp boluses) with use of super-supraglottic swallow maneuver and multiple swallows . It is anticipated that the pt will benefit from continued intensive EMST exercise, which is recommended per EMST protocol over the next 3-4 mos , with follow-up evaluation upon the pt's return to the [facility] in early 2020. Diet Recommendations Recommendations Continue Current Diet Liquids Order Nothing by Mouth Diet Order NPO/Alternative Means of Nutrition/Hydration Medication Recommendations Not Recommended by Mouth Comments Oral trials of NTL, pureed, and dysphagia mechanical textures permitted Additional Dietary Needs Chopped Food,Single Sips,No Straws Aspiration Precautions Recommended Precautions Upright at 90 Degrees,Small Bites/Sips,Double Swallow, Supersupraglottic Swallow Additional Precautions 1/2 - 1 tsp bolus size. Avoid sticky and dry consistencies. Treatment Plan Placement Recommendation after Discharge Home Appropriate for Continued Therapy Yes Therapy Recommendations Discharge from skilled intervention. The pt is to continue with daily EMST exercises for the next 3-4 mos , with f/u evaluation upon his return to the [facility] in early 2020. Dysphagia Goals 1. The pt will perform exercises independently to increase strength, coordination and/or ROM of swallow musculature to improve swallow function and safety for oral consumption. 2. The pt will use compensatory swallow strategies independently to reduce risk of aspiration with oral consumption.
== END 2020-06-10 13:36 ==
LOC: SP 12:30
PROVIDERS: Family Provider Internal Medicine Cardiovascular Disease; PCP Family Medicine; Visit Provider Family Medicine
DX: C77.9 Secondary and unspecified malignant neoplasm of lymph node, unspecified (principal); R13.10 Dysphagia, unspecified
CPT/HCPCS: 92507; 92526; 92610

== ENCOUNTER 2020-05-29 10:30 | Outpatient (RCR) | payer MEDICARE, SELFPAY | END 2020-06-06 07:34 | LOC: CAR 10:30 | PROVIDERS: Family Provider Internal Medicine Cardiovascular Disease; PCP Family Medicine; Visit Provider Internal Medicine Cardiovascular Disease | DX: Z98.890 Other specified postprocedural states (principal) | CPT/HCPCS: 93798 ==

== ENCOUNTER → 2020-05-30 13:11 | Outpatient (CLI) | payer MEDICARE, SELFPAY ==
--- NOTE | 2020-05-30 13:13 | DI.RAD.S_ITS ---
PROCEDURE: FL BARIUM SWALLOW W SPEECH INDICATIONS: ASPIRATION, prior head and neck cancer. COMPARISON: TECHNIQUE: Examination was conducted in conjunction with speech pathology per standard protocol. In the lateral projection, filming was performed of the patient swallowing. AP projection filming may also be performed with patient swallowing. COMPARISON: [facility], [place] BARIUM SWALLOW W SPEECH, 12/12/2019, 7:27. [facility], BARIUM SWALLOW WITH SPEECH, 07/30/2015, 13:59. FINDINGS: Function: The oral preparatory phase appears normal, with proper containment. The subsequent oral propulsive phase appeared normal, but episodic penetration was observed during the course of the examination and a single episode of aspiration to a small degree below the true vocal cord level was also observed. There was vallecular pooling requiring aggressive cough maneuver to clear. Morphology: No cricopharyngeal bar is identified. No cervical esophageal webs. No Zenker's diverticulum. No strictures. IMPRESSION: Penetration and single episode of mild aspiration was observed over the course of this examination, with vallecular pooling and episodes of overflow anterior penetration. Please also refer to the detailed dedicated speech therapy report which will be independently generated. Dictated by: Salvador Baumann M.D. on 05/30/2020 at 14:06 Approved by: Salvador Baumann M.D. on 05/30/2020 at 14:09
--- NOTE | 2020-06-03 15:00 | ST.SWALLOW ---
Visit Care Team Role Provider Type Terry Mora MD Family Provider Physician Specialty: Cardiology Address: [address], [address], [place], [address] Email: [email or web address] Pedro Yañez MD Attending Provider Physician Primary Care Provider Referring Provider Specialty: Family Practice Address: [address] [facility], [address], [place], [address] Email: [email or web address] Modified Barium Swallow Study POTTERY DECORATOR Modified Barium Swallow Study Start: 05/30/20 17:16 Freq: Status: Active Protocol: Document 05/30/20 17:16 GLADIS (Rec: 05/30/20 17:17 GLADIS [email or web address]) Modified Barium Swallow Study Total Time Visit Start Time 13:30 Visit Stop Time 14:05 Total Visit Minutes [address] Yañez Reason for Referral Dysphagia - F/U MBS post dysphagia therapy Setting Setting Outpatient Care Patient Information Identification Type Name,ID Card Patient History The pt is a 74-yr-old male who has been participating in dysphagia therapy with this POTTERY DECORATOR over the past 7 mos. 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 The pt is s/p tongue resection and removal of many lymph nodes in 2006. He received maximum radiation tx. After ~1.5 yrs, the pt noticed increased coughing with oral intake. In 2018 he underwent open heart surgery at [facility], during which he was intubated. 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 He remained hospitalized for 3 wks d/t these complications, was treated with Botox to paralyzed VF, and became dependent on PEG tube feeding, which he continues to today. He participated in dysphagia therapy during and after hospital stay with POTTERY DECORATOR and transferred care to [facility] in Oct 2019 where he continued therapy targeting exercises to increase strength , coordination and ROM of swallow musculature, as well as voice therapy. On December 12, 2019, MBS was administered for evaluation of swallow function/safety and revealed continued severe pharyngeal dysphagia secondary to minimal epiglottic inversion, reduced pharyngeal stripping wave, intrusion of ostephyte into bolus pathway, and reduced degree and duration of UES extension and resulting in significant pharyngeal residue with penetration of contrast during and after swallows of boluses and pharyngeal residue. One episode of contrast extending to posterior side of the VFs was observed. All penetration and aspiration was silent. The POC for outpatient therapy was modified to target expiratory muscle strength training (EMST) using a resistance device, which has been found to be effective for strengthening swallow musculature in some cases. The pt followed the protocol prescribed for the EMST-150 device for intensive exercise for 10 wks followed by maintenance program for 4 wks. Today's MBS is administered to assess progress and determine if the pt has swallow function sufficient to return to oral consumption. Subjective Observations The pt arrived on time. He verbalized understanding of and agreement with MBS procedures. Patient Positioning Position View Lateral Imaging Lateral View Textures Administered Trials Presented Thin Liquid via Spoon,Thin Liquid via Cup,[place] Liquid via Spoon,[place] Liquid via Cup,Honey Liquid via Spoon, Dysphagia Blenderized Textures ,Dysphagia Mechanical Textures ,Regular Textures Oral Phase Source: MBSIMP (TM) (C) Bolus Specific Scoring Grid Lip Closure No Impairment (WNL) Tongue Control During Bolus Hold No Impairment (WNL) Bolus Prep/Mastication No Impairment (WNL) Bolus Transport/Lingual Motion No Impairment (WNL) A/P Lingual Propulsion Delay No Oral Residue WFL Residue Clearing No Impairment (WNL) Nasal Regurgitation No Additional Oral Phase Observations Oral Phase WNL Pharyngeal Phase Source: MBSIMP (TM) (C) Bolus Specific Scoring Grid Delayed Initiation of Pharyngeal Swallow No Soft Palate Elevation No Impairment (WNL) Residue Along the Tongue Base Yes: Trace to mild Clearance of Residue Along Tongue Base WFL Laryngeal Elevation Mild Impairment Anterior Hyoid Movement Mild Impairment Epiglottic Range of Motion Moderate Impairment Vallecular Residue Yes Clearance of Vallecular Residue Severe Impairment Laryngeal Vestibular Closure Mild Impairment Pharyngeal Stripping Wave Severe Impairment Clearance of Posterior Pharyngeal Wall Minimal Impairment Residue Upper Esophageal Sphincter Opening Moderate Impairment Residue in the Pyriform Sinuses Yes Clearance of Residue in the Pyriform Severe Impairment Sinuses Pharyngoesophageal Backflow Observed No Additional Pharyngeal Phase Observations Trace to mild penetration was observed with all consistencies during and after swallow, both of oral bolus and pharyngeal residue. One episode of moraima aspiration of pharyngeal residue was noted after swallow of applesauce consistency. All penetration and aspiration was silent. Cough performed by the pt either in response to the Clinician's instructions or during use of super- supraglottic swallow maneuver were effective in clearing the laryngeal vestibule. Cough after aspiration was helpful in expelling some but not all of the aspirated substance. The pt exhibited the least amount of penetration with trials of nectar-thick liquid, dysphagia mechanical (diced peach), and very small amount of regular texture (cookie). Trials of thin liquid consistently penetrated the laryngeal vestibule, and honey -thick liquids resulted in greatest amounts of pharyngeal residue with penetration during subsequent swallows in attempt to clear the residue. Mild improvement in hyolaryngeal anterior propulsion and epiglottic inversion were perceived, as compared to previous MBS. The epiglottis continues to rest against posterior pharyngeal wall during swallow and achieve horizontal inversion at best. Pharyngeal stripping wave and extension and duration of UES opening continue to be reduced. In conjunction with reduced epiglottic inversion, this allows for buildup of pharyngeal residue. While elevation of the larynx is present, it is insufficient for complete closure of the laryngeal vestibule, allowing for penetration. Reduced sensory input results in silent nature of penetration and aspiration, which increases the pt's risk of complications from dysphagia. A/P View Clinical Impressions Dysphagia Type Moderate-Severe Pharyngeal Dysphagia Findings Although mild improvement of anterior hyolaryngeal propulsion and epiglottic inversion were observed, as compared to previous MBS (), the pt continues to be at moderate to high risk of aspiration. Cough during use of super-supraglottic swallow maneuver was effective in clearing penetrated substances , and cough also cleared most, but not all, of aspirated contrast during this MBS. Due to the insufficient pharyngeal clearance of even small bolus sizes and frequency of penetration of substances into the laryngeal vestibule, the pt is not safe to resume oral intake as primary source of nutrition and hydration. However, he does demonstrate safety sufficient for small amounts of intake for pleasure, with use of super-supraglottic swallow maneuver. Rehabilitation Potential Fair Patient Appropriate for Therapy Yes Recommendations Diet Diet Order NPO/Alternative Means of Nutrition/Hydration Medication Recommendation Not Recommended by Mouth Comments Oral trials of NTL, pureed, and dysphagia mechanical textures permitted Aspiration Precautions Recommended Precautions Upright at 90 Degrees,Small Bites/Sips,Effortful Swallow, Double Swallow,Left Head Turn, Supersupraglottic Swallow Additional Precautions 1/2 - 1 tsp bolus size. Avoid sticky and dry consistencies. Treatment Plan Therapy Recommendations Outpatient Speech Therapy Short Term Goals The pt will follow up with POTTERY DECORATOR in outpatient therapy to determine POC. Shelter Goals The pt will safely tolerate small amounts of NTL, pureed and dysphagia mechanical textures during occasional oral intake for pleasure. Placement Recommendation After Discharge Home
== END ==
PROVIDERS: Family Provider Internal Medicine Cardiovascular Disease; PCP Family Medicine; Referring Provider Family Medicine; Visit Provider Family Medicine
DX: R13.13 Dysphagia, pharyngeal phase (principal); Y84.2 Radiological procedure and radiotherapy as the cause of abnormal reaction of the patient, or of later complication, without mention of misadventure at the time of the procedure; Z85.89 Personal history of malignant neoplasm of other organs and systems; Z93.1 Gastrostomy status
CPT/HCPCS: 74230; 92611

== ENCOUNTER → 2021-02-20 14:15 | Outpatient (CLI) | payer MEDICARE, SELFPAY | PROVIDERS: PCP Family Medicine; Referring Provider Family Medicine; Visit Provider Family Medicine | DX: Z71.3 Dietary counseling and surveillance (principal) | CPT/HCPCS: 97803 ==

== ENCOUNTER → 2021-03-05 13:33 | Outpatient (CLI) | payer MEDICARE, SELFPAY ==
--- NOTE | 2021-03-06 11:06 | DIET.PN ---
Addendum entered by Mago Rios 03/06/21 11:16: Note added on 03/06/21 but patient seen on 02/20/21. RD needed time to create plan to record in note. Original Note: Dietary Progress Note Assessment: 75y M attending RD visit for help with formulating PO plan as pt has been cleared to start consuming some POs. Pt has been feeding enteral formula and water exclusively from PEG tube for several years being strict NPO secondary to dysphagia from neck radiation. Pt brings to RD visit list of commonly eaten foods which are well tolerated for a plan to meet nutrition needs through a combination of PO and PEG. Pt has concerns about developed belly fat and low energy with feeding difficulty secondary to current formula (ISOSOURCE 1.5) which is thick and takes an hour to consume one portion (of six daily) through PEG. Pt interested in switching to a lower carbohydrate formula and knowing how to safely remove some formula when POs increase to support his health, hydration, and nutrition status. Per calculations, pt is being overfed with ISOSOURCE 1.5 formula by almost 400kcals (pt had removed two feedings/d prior to our appointment) and does not need as much protein or carbohydrates as are being fed with that formula. HT: 5'10 WT: 152# Interventions: Plan #1: Diabetisource AC (to lower total carbohydrate load of formula) 6x 250mL to meet daily needs of macro and micronutrients Total: 1800 Calories (25kcals/kg) 88g Protein (1.2g/kg) 144g Carbohydrates 85g Fat Formula provides 1,200mL free water Needed: 1,200mL water flushes Pt formula and flushes provide 34mL/kg hydration Each 250mL portion provides: 300 Calories 15g Protein 24g Carbohydrates 14g Fat 200mL free water from formula If consuming 4 or fewer portions, add some type of a multivitamin to ensure adequate nutrients For each portion you skip, add 200mL water flush to avoid dehydration (Compared to current regimen of Isosource 1.5 providing 2,200 calories, 252g carbs, and 101g protein which you felt was too high carb and too heavy) To identify when to cut out a serving of formula, you can use an joby called [employer] in order to see the macronutrients of your food choices. I have used that joby to plot out some equivalents to one formula serving: In general substitute one portion of formula for: 2 oz turkey or beef + 1/2 cup non-starchy veggies + 1/2cup cooked noodles/1 cup potato + ? avocado 2oz duque chop + 1 cup acorn squash + ? cup non-starchy veggie 2 oz salmon + ? cup non-starchy veggies + ? baked potato with 1 tbs butter and 1 tbs sour cream 2 oz shrimp + ? c non-starchy veggies + ? c egg noodles + 1/2 avocado 3/4 cup cottage cheese with ? pear and 1 TBS ground walnuts 1 cup full fat yogurt with ? cup berries and 1 TBS ground walnuts 2 over-easy eggs with 1 tbs butter and 1 cup sweet potato Tips: - It may be easier to eat one food texture at a time such as eating the solids out of a soup before eating the puree. - Similar textures may be tolerated together such as yogurt with banana - If consuming something with a taut exterior and juicy interior such as a grape or tomato, try smashing it first so the textures homogenize before they enter your mouth. - It is important to weigh yourself weekly to ensure you remain weight neutral. If you notice gains or losses, adjust formula up or down a bit until you stabilize. - If stressed or tired, it is OKAY to switch to formula only for a while - If consuming 4 or fewer portions, add some type of a multivitamin to ensure adequate nutrients - For each portion you skip, add 200mL water flush to avoid dehydration Diet Order: Enteral Formula via PEG with PO intake EER: 1800 Calories (25kcals/kg), 88g Protein (1.2g/kg) Monitoring/Evaluations: f/u as needed
== END ==
PROVIDERS: PCP Family Medicine; Referring Provider Specialist; Visit Provider Specialist
DX: R97.20 Elevated prostate specific antigen [PSA] (principal)
CPT/HCPCS: 36415; 84153

== ENCOUNTER 2021-03-19 14:30 | Outpatient (RCR) | payer MEDICARE, SELFPAY ==
--- NOTE | 2020-12-02 17:35 | ST.OPIE ---
Visit Care Team Role Provider Type Eduardo Cooley MD Primary Care Provider Physician Specialty: Family Practice Address: [place], [address] Email: [email or web address] Attending Provider Referring Provider Specialty: Address: Phone: Fax: Email: Speech-Language Pathology Initial Evaluation CREPE MACHINE OPERATOR Clinical Swallow Evaluation Start: 12/02/20 14:31 Freq: Status: Active Protocol: Document 12/02/20 15:52 GLADIS (Rec: 12/04/20 16:27 GLADIS [email or web address]) Clinical Swallow Evaluation Session Time Visit Start Time 14:30 Visit Stop Time 15:00 Total Visit Minutes 30 Visit Information Visit Number Initial Evaluation Plan of Care Dates 12/02/20 - 03/04/21 Insurance Information Medicare Referral Referring Provider Dr. Heriberto Ham Reason for Referral Oropharyngeal Dysphagia Setting Assessment Location Outpatient Care Visit Type Note Type Initial evaluation Next Note Type Next Note Type Treatment Note Patient Information Identification Type Name,ID Card History Mr. Cavazos is a 75-yr-old male with hx of head and neck cancer with maximum left side radiation treatment who returns to Speech Therapy after being seen at Medicine for MBSS evaluation ( 11/04/20) and treatment (11/26) including microdirect laryngoscopy with bilateral VF injection and esophagoscopy with Botox injection to UES ( see Voice Evaluation for additional details). MBSS revealed silent penetration and aspiration of thin and nectar-thick liquids and moderate pharyngeal residue of solids in the vallecula. The pt benefited from effortful and double swallows and chin tuck. He did not benefit from left head turn, which increased penetration and aspiration. Recommendations included therapeutic moist solid bites and water sips with all compensatory strategies; medication and primary hydration and nutrition via PEG tube. Botox injection to UES was administered to benefit sensation and hopefully get some of the foods into the esophagus, per medical records. The pt attends today to re- establish follow-up care closer to home to monitor swallow safety and improve function s/p these procedures. He will f/u with Otolaryngology in mid-December. Subjective Observations The pt arrived on time and provided updated case history supplemental to medical records. He has participated in trials of oral intake from June, when he was last seen at this clinic, to November 26 including thin liquids and dysphagia mechanical type textures, as per this clinician's recommendation at close of last course of treatment. He has refrained from oral trials since November 26, per Dr. Yuen's recommendation, until able to be followed at this clinic. The pt reported need for multiple swallows with oral trials, some sticking sensation. Reported by Patient Current Diet Tube feeding Patient Questionnaire No Objective Assessment Mental Status Alert,Responsive,Cooperative Oral Integrity WFL Dentition Within normal limits Lip Function Within normal limits Observation of Lips at Rest Symmetrical Pucker Within normal limits Lip Retraction Within normal limits Alternating Pucker/Lip Retraction Within normal limits Tongue Function Within normal limits Observations of Tongue at Rest Within normal limits Tongue Protrusion Within normal limits Tongue Retraction Within normal limits Tongue Lateralization Within normal limits Jaw Function Within normal limits Observations of Jaw at Rest Within normal limits Jaw Opening Within normal limits Jaw Closing Within normal limits Jaw Lateralization Within normal limits Jaw Protrusion Within normal limits Jaw Retraction Within normal limits Hard/Soft Palate Function Within normal limits Observations of Hard/Soft Palate Within normal limits Gag Reflex Within normal limits Nasality Within normal limits Respiratory Sufficiency Within normal limits Food and Liquid Trials Position During Assessment Upright (90 degrees) Liquids Trialed Thin Solids Trialed Dysphagia Mechanical Administration Type Controlled cup sip,Self- feeding Oral Impairment Within normal limits Pharyngeal Impairment Severely impaired Pharyngeal Phase Comments Pt independently used compensatory strategies including chin tuck, super- supraglottic swallow, and multiple swallows as needed. No overt s/sx of aspiration were observed and pt had no c/ o extended sticking sensation that did not clear after double swallow. Voice remained dry sounding throughout session. Fatigue/Endurance Endurance WNL Strategies Attempted Chin tuck,Effortful swallow, Super-supraglottic swallow Response/Comments Beneficial, as stated above. Findings Swallowing Function Pharyngeal phase dysphagia Severity of Swallow Impairment Moderately-severely impaired Contributing Factors to Swallow Reduced oral strength/ Impairment coordination/sensation, Impaired airway protection Comments Reduced pharyngeal muscle ROM secondary to radiation effects. Prognosis Fair Based on History of aspiration/ aspiration pneumonia,Duration of symptoms/severity Comment Swallow exercises from previous tx reviewed. Pt to continue HEP. Impact on Safety and Functioning Risk for aspiration,Risk for inadequate nutrition/hydration Recommendations Instrumental Assessment No Swallowing Treatment Yes Frequency 1x/wk for 6 wks until f/u MBS at mid-December Recommended Solids Nothing by Mouth Recommended Liquids Nothing by Mouth Other Recommendations Therapeutic trials of moist solids bites and thin liquid sips only. Safety Precautions/Swallowing Remain upright (90 degrees) Recommendations during all oral intake,Small bites and sips when eating, Multiple swallows Medication Recommendations Not Recommended by Mouth Education Patient/Caregiver Education Described results of evaluation,Patient expressed understanding of evaluation, Patient expressed agreement with goals & treatment plans, Patient expressed understanding of safety precautions,Patient expressed understanding of feeding recommendations Goals Short-term Goals 1. The pt will perform exercises to increase ROM of pharyngeal musculature to improve swallow safety and reduce reliance on PEG tube feeding. Long-term Goals 1. The pt will demonstrate swallow safety sufficient to resume oral intake as primary source of nutrition and hydration. CREPE MACHINE OPERATOR Voice Resonance Evaluation Start: 12/04/20 10:29 Freq: Status: Active Protocol: Document 12/02/20 15:52 GLADSI (Rec: 12/04/20 16:27 GLADIS [email or web address]) Voice and Resonance Assessment Session Time Visit Start Time 15:00 Visit Stop Time 15:30 Total Visit Minutes 30 Visit Information Visit Number Initial Evaluation Plan of Care Dates 12/02/20 - 03/04/21 Insurance Information Medicare Next Note Type Next Note Type Treatment Note Referral Referring Physician Dr. Heriberto Ham Reason for Referral Hoarseness Setting Setting Outpatient Care Patient History General Information Mr. Cavazos is a 75-yr-old male with hx of head and neck cancer with maximum left side radiation treatment who returns to Speech Therapy after evaluation and treatment at Otolaryngology Clinic including MBSS evaluation (see Clinical Swallow Evaluation for details) and microdirect laryngoscopy with bilateral VF injection and esophagoscopy with Botox injection to UES. Visual findings revealed left VF thinner than right; no evidence of stricture, though [the pt] did have some thickening of the mucosa around what appeared to be a bulky UES sphincter. The cervical esophagus was negative on esophagoscopy. The pt attends today to re- establish follow-up care closer to home to monitor and improve vocal function s/p these procedures. He will f/u with Otolaryngology in mid- December. Hearing Hearing Level Normal Vision Vision Status Not Impaired [place] Langauge Language(s) Spoken in the Home Lithuanian, Kazakh Educational Status Education Level Post graduate education Occupational Status Occupation Status Retired Previous Therapy Previous Speech-Language Therapy Yes History of Previous Therapy Dysphagia therapy at this clinic. Therapy at targeting dysphagia and voice. Subjective Subjective The pt arrived on time and provided updated case history supplemental to medical records. He reported having normal voicing for 48 hrs following operative procedures, now with significant hoarseness and episodes of aphonia, about which he expressed frustration. He stated and demonstrated ability to produce clear vocal quality at much higher than normal pitches but not at or near fundamental frequency. - Laryngeal Performance CAPE-V Overall Severity 88% Severe Roughness 88% Severe, clear at high frequencies (>248 Hz) Breathiness 0% Strain 77% Severe Pitch 74% Severe, reduced spenser at mid to lower frequencies Loudness 32% Mild-Moderate, reduced secondary to roughness and strain Additional Features Diplophonia,Aphonia,Pitch Instability Pitch [place] Pitch [place] Pitch Breaks,Reduced Range, Tension,Cessation of Voicing Pitch [place] Comments 184-335 Hz with diplophonia, roughness & strain at mid to low notes; clear at high frequencies, >248 Hz. Muscle Tension Assessment Muscle Tension Assessment Jaw,Neck,Shoulders Muscle Tension Assessment Comments Tension present during voice production Tenderness with Palpation/Massage No Tongue Base Tension Tongue Base Tension Comment Stiffness secondary to radiation effects Breath Support Breath Support At Rest Mixed Breath Support Sustained Phonation Mixed Breath Support Conversation Mixed Speaks on Room Air Yes Postural Alignment Stance Balanced Shoulders Symmetrical Voice Pitch Range Norms: Women (100-300 Hz) Men (70-250 Hz) Fundamental Frequency Norms: Women (Mean: 225 Hz; Range: 155-334 Hz) Men ( Mean: 128 Hz; Range: 85-196 Hz) Voice Pitch Moderately High,Diplophonia Fundamental Frequency Unable to obtain instrumentally d/t diplophonia Intensity 66 dB in conversation; 74 dB in structured tasks Paradoxical Vocal Fold Movement No Indications Resonance Nasal Resonance Normal Oral Resonance Normal Therapeutic Techniques Therapy Tactics Shifting Tone Focus,Breath Support,Increase Loudness, Decrease Loudness Other Tactics No beneficial impact Findings Findings Severe Impairment Voice/Resonance Assessment Assessment The pt presents with severe dysphonia characterized by diplophonia, roughness and strain at mid to low pitches, including normal conversational frequencies. Pt is able to produce clear voice at >248 Hz. Conversational loudness levels are moderately reduced secondary to diplophonia and hoarseness. Pt is able to project voice to at and above normal conversational levels, although this does not improve vocal quality. It is assumed that the clear voice the pt produced during 48 hrs after surgery was secondary to swelling that increased VF adduction. Skilled intervention is medically necessary to improve the pt's ability to produce voice adequate for functional communication and to improve swallow function/safety to reduce dependence on PEG tube feeding. Prognosis Rehabilitation Potential Fair - Recommendations Treatment Recommended Yes Treatment Frequency/Duration 1x/wk for 6 wks; Re-evaluate after f/u appt mid December. Therapy Recommendations VF adduction exercises, laryngeal relaxation techniques, breath support Short Term Goals 1. The pt will perform VF adduction exercises independently to improve glottal closure to improve quality of voice and swallow safety. 2. The pt will perform diaphragmatic breathing in structured tasks with 80% accuracy to improve breath support for speech and voice. 3. The pt will perform laryngeal relaxation techniques with min cues and 80% acc to improve vocal quality and ease. 4. The pt will sustain phonation with good vocal quality for 15 sec across three trials to improve breath support for voice and speech and improve vocal function. Fpc Goals 1. The pt will produce vocal quality WNL at a variety of pitches to improve functional communication and increase ease with voice and conversation. Patient/Caregiver Education Patient/Family Education Described results of evaluation,Patient Understanding,Patient Needs More Info
--- NOTE | 2020-12-11 15:42 | ST.OPTN ---
Visit Care Team Role Provider Type Eduardo Cooley MD Primary Care Provider Physician Address: [address], [place], [address] Attending Provider Referring Provider Address: Phone: Fax: PRESSURE WASHER Treatment Note PRESSURE WASHER Treatment Note Start: 12/04/20 10:29 Freq: Status: Active Protocol: Document 12/11/20 15:22 GLADIS (Rec: 12/11/20 15:22 GLADIS [email or web address]) Speech Pathology Treatment Note Session Time Visit Start Time 12:30 Visit Stop Time 13:25 Total Visit Minutes 55 Visit Information Visit Number 10/06 Plan of Care Dates 12/02/20 - 03/04/21 Insurance Information Medicare Setting Treatment Setting Outpatient Care Visit Type Note Type Treatment Note Next Note Type Next Note Type Treatment Note General Information General Information Mr. Cavazos is a 75-yr-old male with hx of head and neck cancer with maximum left side radiation treatment who returns to Speech Therapy after being seen at Medicine for MBSS evaluation ( 11/04/20) and treatment (11/26) including microdirect laryngoscopy with bilateral VF injection and esophagoscopy with Botox injection to UES ( see Voice Evaluation for additional details). MBSS revealed silent penetration and aspiration of thin and nectar-thick liquids and moderate pharyngeal residue of solids in the vallecula. The pt benefited from effortful and double swallows and chin tuck. He did not benefit from left head turn, which increased penetration and aspiration. Recommendations included therpeutic moist solid bites and water sips with all compensatory strategies; medication and primary hydration and nutrition via PEG tube. Botox injection to UES was administered to benefit sensation and hopefully get some of the foods into the esophagus, per medical records. The pt attends today to re- establish follow-up care closer to home to monitor swallow safety and improve function s/p these procedures. He will f/u with Otolaryngology in mid-December. Subjective Observations/Patient Presentation The pt arrived on time. He reported mildly improved vocal quality, which was perceived by PRESSURE WASHER. He had a visit with Otolaryngology Clinic since last visit to consult about decreased vocal quality and to meet with an PRESSURE WASHER. He provided copies of reports of the visits. No swelling or other abnormality with VFs was observed via laryngoscopy. The pt stated MD questioned if perhaps more Botox was injected than was necessary, and written report stated anticipation of improved quality as Botox continues to dissipate. Ongoing voice therapy was recommended. [facility] PRESSURE WASHER recommended Forward Focus Resonance exercises and alternative cough techniques. The pt wished to discuss all of this. He also reported new episodes of acid reflux, occuring both during a heavy coughing episode and also when bent over while working in the yard. He also has been having increased coughing unrelated to swallowing. Chief Complaint(s) Swallowing,Voice Patient Knowledge/Awareness of PRESSURE WASHER Role Excellent in Treatment Patient/Caregiver Compliance with Home Excellent Exercise Program Objective Short Term Goals Dysphagia: 1. The pt will perform exercises to increase ROM of pharyngeal musculature to improve swallow safety and reduce reliance on PEG tube feeding. Dysphonia: 1. The pt will perform VF adduction exercises independently to improve glottal closure to improve quality of voice and swallow safety. 2. The pt will perform diaphragmatic breathing in structured tasks with 80% accuracy to improve breath support for speech and voice. 3. The pt will perform laryngeal relaxation techniques with min cues and 80% acc to improve vocal quality and ease. 4. The pt will sustain phonation with good vocal quality for 15 sec across three trials to improve breath support for voice and speech and improve vocal function. Actionscript Developer Goals Dysphagia: 1. The pt will demonstrate swallow safety sufficient to resume oral intake as primary source of nutrition and hydration. Dysphonia: 1. The pt will produce vocal quality WNL at a variety of pitches to improve functional communication and increase ease with voice and conversation. Treatment Activities Reviewed [facility] reports with the pt, as well as suspected increased GERD/LPR d/t injection into the UES which may prevent the UES from closing completely, hence allowing for transfer of acid reflux. Educated pt on potential impacts of GERD/LPR on pharyngeal and laryngeal tissues that may increase sensitivity and result in increased coughing, and subsequent potential impacts of coughing on vocal quality. GERD/LPR information, including s/sx, foods to avoid /minimize, and lifestyle recommendations, was provided orally and in writing. Training in alternative cough techniques was provided with demonstration. The pt verbalized understanding and ability to perform. Also trained the pt in FFR. Pt completed /m/ phonation to find buzz at the lips and maintained buzz/FFR while reading short /m/-laden sentences. He verbalized understanding and stated, This will take some practice. All questions were answered. The pt requested copies of [facility] reports that the PRESSURE WASHER had including MBSS report and Dr. Ham's report from 11/04/20. These were provided after obtaining SHERMAN from pt. Assessment Impairments Identified Dysphagia,Vocal Quality,Vocal Hygiene Assessment of Improvement The pt was responsive to all education, feedback and training today. All questions were answered and he was able to demonstrate understanding of and ability to perform FFR exercises and cough alternatives. Pt will incorporate new voice exercises and continue with swallow exercises in HEP. Reviewed with Patient Goals,Progress Being Made,Home Exercise Program Patient/Caregiver Understanding Excellent Plan Amount of Therapy Recommended 1-2 Months Frequency of Treatment Once a Week Length of Session 45 Minutes Therapeutic Contents Client Education,Home Exercise Program,Swallowing/Feeding, Voice Training Provided Patient/Caregiver Instruction Home Exercise Program,Plan of Care,Questions/Concerns Therapy Recommendations Continue with Current Program
--- NOTE | 2020-12-18 10:18 | ST.OPTN ---
Visit Care Team Role Provider Type Eduardo Cooley MD Primary Care Provider Physician Address: [address], [place], [address] Attending Provider Referring Provider Address: Phone: Fax: CONTROL ENGINEER Treatment Note CONTROL ENGINEER Treatment Note Start: 12/04/20 10:29 Freq: Status: Active Protocol: Document 12/17/20 18:05 GLADIS (Rec: 12/17/20 18:06 GLADIS [email or web address]) Speech Pathology Treatment Note Session Time Visit Start Time 09:30 Visit Stop Time 10:25 Total Visit Minutes 55 Visit Information Visit Number 11/06 Plan of Care Dates 12/02/20 - 03/04/21 Insurance Information Medicare Setting Treatment Setting Outpatient Care Visit Type Note Type Treatment Note Next Note Type Next Note Type Treatment Note General Information General Information Mr. Cavazos is a 75-yr-old male with hx of head and neck cancer with maximum left side radiation treatment who returns to Speech Therapy after being seen at Medicine for MBSS evaluation ( 11/04/20) and treatment (11/26) including microdirect laryngoscopy with bilateral VF injection and esophagoscopy with Botox injection to UES ( see Voice Evaluation for additional details). MBSS revealed silent penetration and aspiration of thin and nectar-thick liquids and moderate pharyngeal residue of solids in the vallecula. The pt benefited from effortful and double swallows and chin tuck. He did not benefit from left head turn, which increased penetration and aspiration. Recommendations included therpeutic moist solid bites and water sips with all compensatory strategies; medication and primary hydration and nutrition via PEG tube. Botox injection to UES was administered to benefit sensation and hopefully get some of the foods into the esophagus, per medical records. The pt attends today to re- establish follow-up care closer to home to monitor swallow safety and improve function s/p these procedures. He will f/u with Otolaryngology in mid-December. Subjective Observations/Patient Presentation The pt arrived on time. He reported mildly improved but still unpredictable an inconsistent vocal quality, which was perceived by this CONTROL ENGINEER. He had questions related to forward focus resonance ( FFR) tasks. Chief Complaint(s) Swallowing,Voice Patient Knowledge/Awareness of CONTROL ENGINEER Role Excellent in Treatment Patient/Caregiver Compliance with Home Excellent Exercise Program Objective Short Term Goals Dysphagia: 1. The pt will perform exercises to increase ROM of pharyngeal musculature to improve swallow safety and reduce reliance on PEG tube feeding. Dysphonia: 1. The pt will perform VF adduction exercises independently to improve glottal closure to improve quality of voice and swallow safety. 2. The pt will perform diaphragmatic breathing in structured tasks with 80% accuracy to improve breath support for speech and voice. 3. The pt will perform laryngeal relaxation techniques with min cues and 80% acc to improve vocal quality and ease. 4. The pt will sustain phonation with good vocal quality for 15 sec across three trials to improve breath support for voice and speech and improve vocal function. Long-Term Goals Dysphagia: 1. The pt will demonstrate swallow safety sufficient to resume oral intake as primary source of nutrition and hydration. Dysphonia: 1. The pt will produce vocal quality WNL at a variety of pitches to improve functional communication and increase ease with voice and conversation. Treatment Activities Discussed again suspected increased GERD/LPR d/t injection into the UES which may prevent the UES from closing completely, hence allowing for transfer of acid reflux. Continued training pt in FFR using multisyllabic words with /m/ in intial position and /m/-laden sentences; education provided RE target goal of incorporating FFR into spontaneous speech, with demonstration of fwd/back focused resonance. Pt was able to discriminate between the two but not yet able to mimic. He produced words and sentences in chant with clear voice in ~70% of trials. Quality was best with increase pitch, higher than normal conversational pitch. All questions were answered. Assessment Patient Response to Treatment Good Rehab Potential Good Impairments Identified Dysphagia,Vocal Quality,Vocal Hygiene Progress Towards Goals Good Progress,Slow Progress Assessment of Overall Progress Improving Assessment of Improvement The pt was responsive to all education, feedback and training today. All questions were answered and he was able to demonstrate understanding of and ability to perform FFR exercises with improved accuracy in multisyllabic words and in sentences of increasing length using chant and higher than normal speaking pitch. Generally, his vocal quality is improving but persists with sudden episodes of pitch breaks and occ brief episodes of aphonia. Producing /m/V and staccato phonation typically resolves these episodes for a time. Over the course of today's session, the pt experienced 4 episodes of unpredictable voicing that he managed with these strategies. Diplophonia was perceived x1 in conversation, which is a significant improvement since SOC. Reviewed with Patient Goals,Progress Being Made,Home Exercise Program Patient/Caregiver Understanding Excellent Plan Amount of Therapy Recommended 1-2 Months Frequency of Treatment Once a Week Length of Session 45 Minutes Therapeutic Contents Client Education,Home Exercise Program,Swallowing/Feeding, Voice Training Provided Patient/Caregiver Instruction Home Exercise Program,Plan of Care,Questions/Concerns Therapy Recommendations Continue with Current Program
--- NOTE | 2020-12-25 17:49 | ST.OPTN ---
Visit Care Team Role Provider Type Eduardo Cooley MD Primary Care Provider Physician Address: [address], [place], [address] Attending Provider Referring Provider Address: Phone: Fax: HOSPICE SOCIAL WORKER Treatment Note HOSPICE SOCIAL WORKER Treatment Note Start: 12/04/20 10:29 Freq: Status: Active Protocol: Document 12/25/20 16:55 GLADIS (Rec: 12/25/20 17:25 GLADIS [email or web address]) Speech Pathology Treatment Note Session Time Visit Start Time 09:30 Visit Stop Time 10:25 Total Visit Minutes 55 Visit Information Visit Number 12/04 Plan of Care Dates 12/02/20 - 03/04/21 Insurance Information Medicare Setting Treatment Setting Outpatient Care Visit Type Note Type Treatment Note Next Note Type Next Note Type Treatment Note General Information General Information Mr. Cavazos is a 75-yr-old male with hx of head and neck cancer with maximum left side radiation treatment who returns to Speech Therapy after being seen at Medicine for MBSS evaluation ( 11/04/20) and treatment (11/26) including microdirect laryngoscopy with bilateral VF injection and esophagoscopy with Botox injection to UES ( see Voice Evaluation for additional details). MBSS revealed silent penetration and aspiration of thin and nectar-thick liquids and moderate pharyngeal residue of solids in the vallecula. The pt benefited from effortful and double swallows and chin tuck. He did not benefit from left head turn, which increased penetration and aspiration. Recommendations included therpeutic moist solid bites and water sips with all compensatory strategies; medication and primary hydration and nutrition via PEG tube. Botox injection to UES was administered to benefit sensation and hopefully get some of the foods into the esophagus, per medical records. The pt attends today to re- establish follow-up care closer to home to monitor swallow safety and improve function s/p these procedures. He will f/u with Otolaryngology in mid-December. Subjective Observations/Patient Presentation The pt arrived on time. He reported no changes in swallowing; no s/sx of aspiration when using super- supraglottic swallow maneuver. If distracted and not using the maneuver, he experiences occasional coughing. He also reported mildly improved but still unpredictable and inconsistent vocal quality, sometimes loss of voice mid- sentence. He continues to typically be able to manage this and regain voice by performing staccato vowel phonation (VF adduction) and /m/ production (forward focus resonance). He had questions related to forward focus resonance (FFR) use in speech, as well as related to the injection procedures he had done and potential permanent impact of VF implants on voice , should he choose to have them. An HOSPICE SOCIAL WORKER colleague, Dr. Sofi Yanes, was consulted as she has had more experience with these procedures than this HOSPICE SOCIAL WORKER. An HOSPICE SOCIAL WORKER student also joined the discussion with the pt's verbal consent. Chief Complaint(s) Swallowing,Voice Patient Knowledge/Awareness of HOSPICE SOCIAL WORKER Role Excellent in Treatment Patient/Caregiver Compliance with Home Excellent Exercise Program Objective Short Term Goals Dysphagia: 1. The pt will perform exercises to increase ROM of pharyngeal musculature to improve swallow safety and reduce reliance on PEG tube feeding. Dysphonia: 1. The pt will perform VF adduction exercises independently to improve glottal closure to improve quality of voice and swallow safety. 2. The pt will perform diaphragmatic breathing in structured tasks with 80% accuracy to improve breath support for speech and voice. 3. The pt will perform laryngeal relaxation techniques with min cues and 80% acc to improve vocal quality and ease. 4. The pt will sustain phonation with good vocal quality for 15 sec across three trials to improve breath support for voice and speech and improve vocal function. Skilled Nursing Goals Dysphagia: 1. The pt will demonstrate swallow safety sufficient to resume oral intake as primary source of nutrition and hydration. Dysphonia: 1. The pt will produce vocal quality WNL at a variety of pitches to improve functional communication and increase ease with voice and conversation. Treatment Activities Continued training of FFR with use of straw phonation. Tasks included single note phonation, pitch glides, humming the intonation of poems, then of speech (e.g., How are you today?), and finally talking through the straw with FFR. The pt's voice remained clear through >90% of all tasks. Straw was then removed with instructions for the pt to visualize continuing to speak via straw and maintaining same FFR. The pt was able to do this in short sentences with 97% accuracy. Continued FFR in spontaneous conversation. The pt maintained FFR and clear voicing with ~75% accuracy. When voice became rough, he paused and re-approached same speech using FFR. This improved quality of voice in ~85% of opportunities. Glottal erickson was questioned as the cause of some of the episodes of roughness. Education and training to eliminate glottal erickson was provided with video presentation of VFs vibrating both normally (relaxed larynx) and in glottal erickson (visibly increased tension). The pt verbalized understanding and stated he had a better understanding of forward vs back resonance. Needs further reinforcement but the pt demonstrated good ability to monitor and correct. After this training, Dr. Yanes and student joined for consultation. Dr. Yanes answered the pt 's questions and, based on discussion of his case history , including the fact that the pt experienced normal voicing for 2 days following the injections (likely d/t swelling) without compromise of breathing, questions were developed for Dr. Meyer and team. One such question was whether or not an increased amount of filling could be injected into VFs as a second trial, equaling the level of VF bulk accomplished by first injection + swelling. The pt expressed appreciation of consultation. Assessment Patient Response to Treatment Good Rehab Potential Good Impairments Identified Dysphagia,Vocal Quality,Vocal Hygiene Progress Towards Goals Slow Progress Assessment of Overall Progress Improving Assessment of Improvement The pt was responsive to all education, feedback and voice training today. All questions were answered to the best of the police specialist' abilities. The pt demonstrated increased understanding of and ability to perform FFR exercises via straw phonation. He was able to transfer phonation and hummed intonation to speech without use of straw with much improved accuracy. He demonstrated excellent self- monitoring and correcting skills. Occasional glottal erickson was perceived, which needs further training; otherwise, the pt maintained increased consistency of clear voice when applying FFR, which requires mod-max effort. The pt was appreciative of collaboration with Dr. Maura Tidwell, and important questions were generated for the pt to present to Dr. Meyer and team as part of the medical decision making process. No oral trials were administered today. The pt continues to be compliant with swallow and voice exercises. Will assess swallow with oral trials at next session. Reviewed with Patient Goals,Progress Being Made,Home Exercise Program Patient/Caregiver Understanding Excellent Plan Amount of Therapy Recommended 1-2 Months Frequency of Treatment Once a Week Length of Session 45 Minutes Treatment Emphasis Next Session Swallow assessment with oral trials. Therapeutic Contents Client Education,Home Exercise Program,Swallowing/Feeding, Voice Training Provided Patient/Caregiver Instruction Home Exercise Program,Plan of Care,Questions/Concerns Therapy Recommendations Continue with Current Program
--- NOTE | 2021-01-01 18:30 | ST.OPTN ---
Visit Care Team Role Provider Type Eduardo Cooley MD Primary Care Provider Physician Address: [address], [place], [address] Attending Provider Referring Provider Address: Phone: Fax: HIMS CLERK Treatment Note HIMS CLERK Treatment Note Start: 12/04/20 10:29 Freq: Status: Active Protocol: Document 01/01/21 18:15 GLADIS (Rec: 01/01/21 18:28 GLADIS [email or web address]) Speech Pathology Treatment Note Session Time Visit Start Time 12:30 Visit Stop Time 13:20 Total Visit Minutes 50 Visit Information Visit Number 01/04 Plan of Care Dates 12/02/20 - 03/04/21 Insurance Information Medicare Setting Treatment Setting Outpatient Care Visit Type Note Type Treatment Note Next Note Type Next Note Type Treatment Note General Information General Information Mr. Cavazos is a 75-yr-old male with hx of head and neck cancer with maximum left side radiation treatment who returns to Speech Therapy after being seen at Medicine for MBSS evaluation ( 11/04/20) and treatment (11/26) including microdirect laryngoscopy with bilateral VF injection and esophagoscopy with Botox injection to UES ( see Voice Evaluation for additional details). MBSS revealed silent penetration and aspiration of thin and nectar-thick liquids and moderate pharyngeal residue of solids in the vallecula. The pt benefited from effortful and double swallows and chin tuck. He did not benefit from left head turn, which increased penetration and aspiration. Recommendations included therpeutic moist solid bites and water sips with all compensatory strategies; medication and primary hydration and nutrition via PEG tube. Botox injection to UES was administered to benefit sensation and hopefully get some of the foods into the esophagus, per medical records. The pt attends today to re- establish follow-up care closer to home to monitor swallow safety and improve function s/p these procedures. He will f/u with Otolaryngology in mid-December. Subjective Identification Type Name,Picture Observations/Patient Presentation The pt arrived on time accompanied by his . He brought samples of food from home representing typical foods he is now consuming. He reported reducing tube feeding one day to only one bolus d/t ability to consume enough food orally equal to 2 meals. He also reported frequent coughing unrelated to swallow. He identified certain scents, dry air, and feeling hot as triggers of this cough, which he describes as horrendous in strength. Chief Complaint(s) Swallowing,Voice Patient Knowledge/Awareness of HIMS CLERK Role Excellent in Treatment Patient/Caregiver Compliance with Home Excellent Exercise Program Objective Short Term Goals Dysphagia: 1. The pt will perform exercises to increase ROM of pharyngeal musculature to improve swallow safety and reduce reliance on PEG tube feeding. Dysphonia: 1. The pt will perform VF adduction exercises independently to improve glottal closure to improve quality of voice and swallow safety. 2. The pt will perform diaphragmatic breathing in structured tasks with 80% accuracy to improve breath support for speech and voice. 3. The pt will perform laryngeal relaxation techniques with min cues and 80% acc to improve vocal quality and ease. 4. The pt will sustain phonation with good vocal quality for 15 sec across three trials to improve breath support for voice and speech and improve vocal function. Jail Goals Dysphagia: 1. The pt will demonstrate swallow safety sufficient to resume oral intake as primary source of nutrition and hydration. Dysphonia: 1. The pt will produce vocal quality WNL at a variety of pitches to improve functional communication and increase ease with voice and conversation. Treatment Activities Food trials: soup, baked apples, salmon with use of super-supraglottic swallow. Occ coughing on small particles such as apple skin ( although apples had been peeled prior to cooking). Mild changes in vocal quality were observed, although it's difficult to determine if this is swallow related or simply changes in the pt's voice, which remains unpredictable and variable, though mildly improved. Education provided RE clinical s/sx of aspiration with recommendation to seek medical attention if s/sx of pneumonia present. Otherwise, encouraged pt to continue with oral intake in small amounts at a time with use of super- supraglottic swallow strategy, particularly with foods of textures greater than pureed. Pt/spouse verbalized understanding and agreement. Discussed POC. Will f/u with pt in 2-3 wks following his re -evaluation at on 01/13. Assessment Patient Response to Treatment Good Rehab Potential Good Impairments Identified Dysphagia,Vocal Quality,Vocal Hygiene Progress Towards Goals Slow Progress Assessment of Overall Progress Improving Assessment of Improvement Pt is tolerating increased amounts and variety of foods with decreased dependence on tube feeding. Occ penetration/ aspiration of small particles occurs, but pt is typically successful in expelling with cough and exhibits adequate laryngeal/airway sensation to trigger cough. The pt's voice remains unpredictable and variable, though improved islands of clear voice are present and increasing in duration. Cause of non-swallow related coughing is unclear. Question laryngospasm, although symptoms are not entirely in character. Will appreciate Dr. Meyer's input on this. Reviewed with Patient Goals,Progress Being Made,Home Exercise Program Patient/Caregiver Understanding Excellent Plan Amount of Therapy Recommended 1-2 Months Frequency of Treatment Once a Week Length of Session 45 Minutes Treatment Emphasis Next Session F/U after [facility] reassessment Therapeutic Contents Client Education,Home Exercise Program,Swallowing/Feeding, Voice Training Provided Patient/Caregiver Instruction Home Exercise Program,Plan of Care,Questions/Concerns Therapy Recommendations Continue with Current Program
--- NOTE | 2021-01-22 16:46 | ST.OPTN ---
Visit Care Team Role Provider Type Eduardo Cooley MD Primary Care Provider Physician Address: [address], [place], [address] Attending Provider Referring Provider Address: Phone: Fax: LANDSCAPE CREW LEADER Treatment Note LANDSCAPE CREW LEADER Treatment Note Start: 12/04/20 10:29 Freq: Status: Active Protocol: Document 01/21/21 18:08 GLADIS (Rec: 01/21/21 18:09 GLADIS [email or web address]) Speech Pathology Treatment Note Session Time Visit Start Time 10:30 Visit Stop Time 11:15 Total Visit Minutes 45 Visit Information Visit Number 02/03 Plan of Care Dates 12/02/20 - 03/04/21 Insurance Information Medicare Setting Treatment Setting Outpatient Care Visit Type Note Type Treatment Note Next Note Type Next Note Type Treatment Note General Information General Information Mr. Cavazos is a 75-yr-old male with hx of head and neck cancer with maximum left side radiation treatment who returns to Speech Therapy after being seen at Medicine for MBSS evaluation ( 11/04/20) and treatment (11/26) including microdirect laryngoscopy with bilateral VF injection and esophagoscopy with Botox injection to UES ( see Voice Evaluation for additional details). MBSS revealed silent penetration and aspiration of thin and nectar-thick liquids and moderate pharyngeal residue of solids in the vallecula. The pt benefited from effortful and double swallows and chin tuck. He did not benefit from left head turn, which increased penetration and aspiration. Recommendations included therpeutic moist solid bites and water sips with all compensatory strategies; medication and primary hydration and nutrition via PEG tube. Botox injection to UES was administered to benefit sensation and hopefully get some of the foods into the esophagus, per medical records. The pt attends today to re- establish follow-up care closer to home to monitor swallow safety and improve function s/p these procedures. He will f/u with Otolaryngology in mid-December. Subjective Identification Type Name,Picture Observations/Patient Presentation On 01/13, the pt was seen for f /u MBS, laryngoscopy and consultation at [facility]. MBSS revealed improved swallow safety with normal hyolaryngeal movement, velopharyngeal competency, and initation of pharyngeal swallow. Pt continues with incomplete supraglottic closure, base of tongue retraction and pharyngeal contraction, absent or near- absent epiglottic inversion. He did demonstrate trace silent aspiration of thin and nectar thick liquids. When instructed, cough clear strategy cleared the aspiration contrast. [facility] medical team anticipates permanent placement of tube for hydration d/t c/o aspiration of liquids. Pt reports he has consumed 2 full meals at home without liquid intake. Laryngoscopy showed VFs adducting more completely and with greater bulk, secondary to injected material. The pt discussed his concern of unintended consequences of surgery with Dr. Meyer. The pt will be leaving the country on 03[place]22[place], returning end of May, and has another appt with Dr. Meyer to make final decision about surgery. Regarding coughing when not consuming oral intake, the pt stated he still struggles a bit, though less, with coughing triggered by odors, dry throat, increased body temp. No sense of not being able to breathe, such as with laryngospasm. Chief Complaint(s) Swallowing,Voice Patient Knowledge/Awareness of LANDSCAPE CREW LEADER Role Excellent in Treatment Patient/Caregiver Compliance with Home Excellent Exercise Program Objective Short Term Goals Dysphagia: 1. The pt will perform exercises to increase ROM of pharyngeal musculature to improve swallow safety and reduce reliance on PEG tube feeding. Dysphonia: 1. The pt will perform VF adduction exercises independently to improve glottal closure to improve quality of voice and swallow safety. 2. The pt will perform diaphragmatic breathing in structured tasks with 80% accuracy to improve breath support for speech and voice. 3. The pt will perform laryngeal relaxation techniques with min cues and 80% acc to improve vocal quality and ease. 4. The pt will sustain phonation with good vocal quality for 15 sec across three trials to improve breath support for voice and speech and improve vocal function. Correction Goals Dysphagia: 1. The pt will demonstrate swallow safety sufficient to resume oral intake as primary source of nutrition and hydration. Dysphonia: 1. The pt will produce vocal quality WNL at a variety of pitches to improve functional communication and increase ease with voice and conversation. Treatment Activities The pt exhibited significantly improved and consistent vocal quality today. He reports this has been the case consistently now. Consulted with pt RE [facility] reports. Pt had questions RE benefit of swallow/voice exercises vs Botox injections and discussed POC. All questions were answered to the best of this LANDSCAPE CREW LEADER's ability within scope of practice. Recommended pt continue with oral intake of foods as tolerated, to use super- supraglottic maneuver if consuming liquids, and to continue swallow and voice exercises. Agreed to reduce frequency of visits to 1 visit every 2 wks. Assessment Patient Response to Treatment Good Rehab Potential Good Impairments Identified Dysphagia,Vocal Quality,Vocal Hygiene Progress Towards Goals Good Progress,Slow Progress Assessment of Overall Progress Improving Assessment of Improvement The pt is demonstrating good progress via MBS with improved movement of many structures, including airway protection, although closure of laryngeal vestibule remains incomplete and allows for penetration/ aspiration of thin and NT liquids. This remains silent in nature, indicating continued reduced laryngeal and tracheal sensation, likely secondary to radiation effects. Injections into UES and VFs appear to be beneficial, as well. The pt's voice was notably improved today. The pt continues to demonstrate excellent understanding and compliance with HEP and recommendations for safety and shows good judgment with regard to food choices. Reviewed with Patient Goals,Progress Being Made,Home Exercise Program Patient/Caregiver Understanding Excellent Plan Amount of Therapy Recommended 1-2 Months Frequency of Treatment Once a Week Length of Session 45 Minutes Therapeutic Contents Client Education,Home Exercise Program,Swallowing/Feeding, Voice Training Provided Patient/Caregiver Instruction Home Exercise Program,Plan of Care,Questions/Concerns Therapy Recommendations Continue with Current Program
--- NOTE | 2021-02-05 13:25 | ST.OPTN ---
Visit Care Team Role Provider Type Eduardo Cooley MD Primary Care Provider Physician Address: [address], [place], [address] Attending Provider Referring Provider Address: Phone: Fax: STAFF INTERNIST OFFICE BASED ONLY Treatment Note STAFF INTERNIST OFFICE BASED ONLY Treatment Note Start: 12/04/20 10:29 Freq: Status: Active Protocol: Document 02/05/21 13:11 GLADIS (Rec: 02/05/21 13:25 GLADIS [email or web address]) Speech Pathology Treatment Note Session Time Visit Start Time 10:30 Visit Stop Time 11:15 Total Visit Minutes 45 Visit Information Visit Number 03/06 Plan of Care Dates 12/02/20 - 03/04/21 Insurance Information Medicare Setting Treatment Setting Outpatient Care Visit Type Note Type Treatment Note Next Note Type Next Note Type Treatment Note General Information General Information Mr. Cavazos is a 75-yr-old male with hx of head and neck cancer with maximum left side radiation treatment who returns to Speech Therapy after being seen at Medicine for MBSS evaluation ( 11/04/20) and treatment (11/26) including microdirect laryngoscopy with bilateral VF injection and esophagoscopy with Botox injection to UES ( see Voice Evaluation for additional details). MBSS revealed silent penetration and aspiration of thin and nectar-thick liquids and moderate pharyngeal residue of solids in the vallecula. The pt benefited from effortful and double swallows and chin tuck. He did not benefit from left head turn, which increased penetration and aspiration. Recommendations included therapeutic moist solid bites and water sips with all compensatory strategies; medication and primary hydration and nutrition via PEG tube. Botox injection to UES was administered to benefit sensation and hopefully get some of the foods into the esophagus, per medical records. The pt attends today to re- establish follow-up care closer to home to monitor swallow safety and improve function s/p these procedures. He will f/u with Otolaryngology in mid-December. Subjective Identification Type Name,Picture Others Present Additional Therapist Observations/Patient Presentation Pt arrived on time accompanied by his . Student STAFF INTERNIST OFFICE BASED ONLY was present throughout the session with pt's verbal permission. Pt reported continuing with a variety of oral trials and that ~1/4 - 1/3 of daily intake comes from oral feeding (primarily solids). He has been using syringe administration of tube feeding boluses vs gravity-fed in order to conserve time. Has not connected with a import export coordinator yet but hopes to before leaving for [facility] in February in order to manage nutrition. Pt reports having lost 6-7 lbs since increasing oral intake. Chief Complaint(s) Swallowing,Voice Patient Knowledge/Awareness of STAFF INTERNIST OFFICE BASED ONLY Role Excellent in Treatment Patient/Caregiver Compliance with Home Excellent Exercise Program Objective Short Term Goals Dysphagia: 1. The pt will perform exercises to increase ROM of pharyngeal musculature to improve swallow safety and reduce reliance on PEG tube feeding. Dysphonia: 1. The pt will perform VF adduction exercises independently to improve glottal closure to improve quality of voice and swallow safety. 2. The pt will perform diaphragmatic breathing in structured tasks with 80% accuracy to improve breath support for speech and voice. 3. The pt will perform laryngeal relaxation techniques with min cues and 80% acc to improve vocal quality and ease. 4. The pt will sustain phonation with good vocal quality for 15 sec across three trials to improve breath support for voice and speech and improve vocal function. Prison Goals Dysphagia: 1. The pt will demonstrate swallow safety sufficient to resume oral intake as primary source of nutrition and hydration. Dysphonia: 1. The pt will produce vocal quality WNL at a variety of pitches to improve functional communication and increase ease with voice and conversation. Treatment Activities Consulted with pt RE current feeding practices. Skilled feedback and education provided RE oral vs tube feeding. Recommended pt monitor physical responses to syringe feeding and cautioned RE potential increase of GERD symptoms d/t expedited delivery of tube feeding content and recommended GERD precautions. Pt verbalized agreement; has not observed increased symptoms. Pt requested STAFF INTERNIST OFFICE BASED ONLY fax request for referral for Electrician Rectifier Maintenance consultation to his new PCP, Dr. Cooley. STAFF INTERNIST OFFICE BASED ONLY agreeable to this. Collaborated with pt/ spouse RE maintaining nutrition and caloric intake. Will appreciate Electrician Rectifier Maintenance input and guidance in this matter. Assessment Patient Response to Treatment Good Rehab Potential Good Impairments Identified Dysphagia,Vocal Quality,Vocal Hygiene Progress Towards Goals Good Progress,Slow Progress Assessment of Overall Progress Improving Assessment of Improvement Pt continues to safely advance amount of oral intake. Demonstrates excellent awareness of safety and risks and ability to make safe choices. Concern of weight loss with increased oral consumption. Consultation with Electrician Rectifier Maintenance is highly recommended to maintain adequate weight, nutrition and hydration. Voice was percieved to be stable and consistent in quality, mildly weak but no aphonic episodes or extreme pitch variations. Reviewed with Patient Goals,Progress Being Made,Home Exercise Program Patient/Caregiver Understanding Excellent Plan Amount of Therapy Recommended 1-2 Months Frequency of Treatment Once a Week Length of Session 45 Minutes Therapeutic Contents Client Education,Home Exercise Program,Swallowing/Feeding, Voice Training Provided Patient/Caregiver Instruction Home Exercise Program,Plan of Care,Questions/Concerns Therapy Recommendations Continue with Current Program
--- NOTE | 2021-02-19 11:16 | ST.OPTN ---
Visit Care Team Role Provider Type Eduardo Cooley MD Primary Care Provider Physician Address: [address], [place], [address] Attending Provider Referring Provider Address: Phone: Fax: CHAIN DYER Treatment Note CHAIN DYER Treatment Note Start: 12/04/20 10:29 Freq: Status: Active Protocol: Document 02/19/21 11:06 GLADIS (Rec: 02/19/21 11:16 GLADIS [email or web address]) Speech Pathology Treatment Note Session Time Visit Start Time 10:25 Visit Stop Time 11:00 Total Visit Minutes 35 Visit Information Visit Number 04/05 Plan of Care Dates 12/02/20 - 03/04/21 Insurance Information Medicare Setting Treatment Setting Outpatient Care Visit Type Note Type Treatment Note Next Note Type Next Note Type Discharge Summary General Information General Information Mr. Cavazos is a 75-yr-old male with hx of head and neck cancer with maximum left side radiation treatment who returns to Speech Therapy after being seen at Medicine for MBSS evaluation ( 11/04/20) and treatment (11/26) including microdirect laryngoscopy with bilateral VF injection and esophagoscopy with Botox injection to UES ( see Voice Evaluation for additional details). MBSS revealed silent penetration and aspiration of thin and nectar-thick liquids and moderate pharyngeal residue of solids in the vallecula. The pt benefited from effortful and double swallows and chin tuck. He did not benefit from left head turn, which increased penetration and aspiration. Recommendations included therpeutic moist solid bites and water sips with all compensatory strategies; medication and primary hydration and nutrition via PEG tube. Botox injection to UES was administered to benefit sensation and hopefully get some of the foods into the esophagus, per medical records. The pt attends today to re- establish follow-up care closer to home to monitor swallow safety and improve function s/p these procedures. He will f/u with Otolaryngology in mid-December. Subjective Identification Type Name,Picture Others Present Additional Therapist Observations/Patient Presentation Pt arrived on time unaccompanied. Student CHAIN DYER was present throughout the session with pt's verbal permission. Pt reported continuing with a variety of oral trials and that ~1/4 - 1/ 3 of daily intake comes from oral feeding (primarily solids ). He has been using syringe administration of tube feeding boluses vs gravity-fed in order to conserve time. Has appt with a certified medical asst tmw for consultation RE managing nutrition while abroad with transition to increased oral intake. Pt reports voice being mostly normal except during times of stress when he notices increase laryngeal tension. These episodes do not last long. Chief Complaint(s) Swallowing,Voice Patient Knowledge/Awareness of CHAIN DYER Role Excellent in Treatment Patient/Caregiver Compliance with Home Excellent Exercise Program Objective Short Term Goals Dysphagia: 1. The pt will perform exercises to increase ROM of pharyngeal musculature to improve swallow safety and reduce reliance on PEG tube feeding. Dysphonia: 1. The pt will perform VF adduction exercises independently to improve glottal closure to improve quality of voice and swallow safety. 2. The pt will perform diaphragmatic breathing in structured tasks with 80% accuracy to improve breath support for speech and voice. 3. The pt will perform laryngeal relaxation techniques with min cues and 80% acc to improve vocal quality and ease. 4. The pt will sustain phonation with good vocal quality for 15 sec across three trials to improve breath support for voice and speech and improve vocal function. Penitentiary Goals Dysphagia: 1. The pt will demonstrate swallow safety sufficient to resume oral intake as primary source of nutrition and hydration. Dysphonia: 1. The pt will produce vocal quality WNL at a variety of pitches to improve functional communication and increase ease with voice and conversation. Treatment Activities Assessed pt's swallow with trials of hummus x2 and thin liquid x4. Pt employed supersupraglottic maneuver and exhibited no immediate overt s/sx of aspiration with all trials. He did cough x3 after delay of 1-3 min. Pt stated this was not related to airway compromise but he has been experiencing increased coughing unrelated to oral intake. [place] it could be response from increased variety of foods, such as vinegars that may mildly irritate his throat. Discussed POC. Agreed to f/u in 4 wks prior to pt's departure to [place]. Recommend he continue as he has with oral intake. Assessment Patient Response to Treatment Good Rehab Potential Good Impairments Identified Dysphagia,Vocal Quality,Vocal Hygiene Progress Towards Goals Good Progress Assessment of Overall Progress Improving Assessment of Improvement Pt continues to safely advance amount of oral intake. Demonstrates excellent awareness of safety and risks and ability to make safe choices. Occasional delayed coughing was observed with oral trials. Unsure if related to airway intrusion or sensitivity to texture/flavor of food. The pt reports no clinical or other overt s/sx of aspiration with oral intake at home. Voice was perceived to be stable and consistent in quality, no aphonic episodes or extreme pitch variations. Will f/u in 4 wks. Anticipate dc from services at that time, as the pt will be living abroad until [place]. Plan to restart therapy upon his return. Reviewed with Patient Goals,Progress Being Made,Home Exercise Program Patient/Caregiver Understanding Excellent Plan Amount of Therapy Recommended 1 Month Comment f/u in 4 wks Length of Session 45 Minutes Therapeutic Contents Client Education,Home Exercise Program,Swallowing/Feeding, Voice Training Provided Patient/Caregiver Instruction Home Exercise Program,Plan of Care,Questions/Concerns Therapy Recommendations Continue with Current Program
--- NOTE | 2021-08-12 15:15 | ST.OPDS ---
Visit Care Team Role Provider Type Eduardo Cooley MD Primary Care Provider Physician Address: [address], [place], [address] Attending Provider Referring Provider Address: Phone: Fax: THEOLOGY PROFESSOR Treatment Note THEOLOGY PROFESSOR Treatment Note Start: 12/04/20 10:29 Freq: Status: Active Protocol: Document 08/12/21 15:11 GLADIS (Rec: 08/12/21 15:15 GLADIS [email or web address]) Speech Pathology Treatment Note Visit Information Insurance Information Medicare Setting Treatment Setting Outpatient Care Visit Type Note Type Discharge Summary General Information General Information Mr. Cavazos is a 75-yr-old male with hx of head and neck cancer with maximum left side radiation treatment who returns to Speech Therapy after being seen at Medicine for MBSS evaluation ( 11/04/20) and treatment (11/26) including microdirect laryngoscopy with bilateral VF injection and esophagoscopy with Botox injection to UES ( see Voice Evaluation for additional details). MBSS revealed silent penetration and aspiration of thin and nectar-thick liquids and moderate pharyngeal residue of solids in the vallecula. The pt benefited from effortful and double swallows and chin tuck. He did not benefit from left head turn, which increased penetration and aspiration. Recommendations included therpeutic moist solid bites and water sips with all compensatory strategies; medication and primary hydration and nutrition via PEG tube. Botox injection to UES was administered to benefit sensation and hopefully get some of the foods into the esophagus, per medical records. The pt attends today to re- establish follow-up care closer to home to monitor swallow safety and improve function s/p these procedures. He will f/u with Otolaryngology in mid-December. Subjective Observations/Patient Presentation The pt was last seen March 19 at which time therapy was paused while he was traveling internationally. He has since returned to the [place]; however, POC dates have and he is discharged from skilled intervention at this time. The pt has been in touch via email recently and reported consuming most of his nutrition and hydration orally . Chief Complaint(s) Swallowing,Voice Objective Short Term Goals Dysphagia: 1. The pt will perform exercises to increase ROM of pharyngeal musculature to improve swallow safety and reduce reliance on PEG tube feeding. Dysphonia: 1. The pt will perform VF adduction exercises independently to improve glottal closure to improve quality of voice and swallow safety. 2. The pt will perform diaphragmatic breathing in structured tasks with 80% accuracy to improve breath support for speech and voice. 3. The pt will perform laryngeal relaxation techniques with min cues and 80% acc to improve vocal quality and ease. 4. The pt will sustain phonation with good vocal quality for 15 sec across three trials to improve breath support for voice and speech and improve vocal function. Mechanical Maintenance Instructor Goals Dysphagia: 1. The pt will demonstrate swallow safety sufficient to resume oral intake as primary source of nutrition and hydration. Dysphonia: 1. The pt will produce vocal quality WNL at a variety of pitches to improve functional communication and increase ease with voice and conversation. Plan Therapy Recommendations Discharge from Speech Therapy
== END 2021-10-28 09:38 ==
LOC: SP 14:30
PROVIDERS: PCP Family Medicine
DX: R13.12 Dysphagia, oropharyngeal phase (principal)
CPT/HCPCS: 92507; 92524; 92526; 92610

== ENCOUNTER → 2021-08-25 14:21 | Outpatient (CLI) | payer MEDICARE, SELFPAY ==
--- NOTE | 2021-08-25 | DI.RAD.S_ITS ---
PROCEDURE: XR CHEST 2V INDICATIONS: DYSPHAGIA TECHNIQUE: 2 views of the chest were acquired. COMPARISON: None. FINDINGS: Surgical changes and devices: Mitral valve prosthesis. Median sternotomy wires. Lungs and pleura: Lungs are clear. No pleural effusions or pneumothorax. Mediastinum: Mediastinal contours are normal. Heart size is normal. Bones and chest wall: No suspicious bony abnormalities. Soft tissues appear unremarkable. IMPRESSION: No acute cardiopulmonary disease process. Dictated by: Doris Garcia MD, PhD on 08/25/2021 at 16:34 Approved by: Doris Garcia MD, PhD on 08/25/2021 at 16:35
== END ==
PROVIDERS: PCP Family Medicine; Referring Provider Family Medicine; Visit Provider Family Medicine
DX: R13.10 Dysphagia, unspecified (principal)
CPT/HCPCS: 71046

== ENCOUNTER 2021-10-13 15:09 | Outpatient (RCR) | payer MEDICARE, SELFPAY ==
--- NOTE | 2021-10-13 17:20 | ST.OPIE ---
Visit Care Team Role Provider Type Eduardo Cooley MD Attending Provider Physician Family Provider Primary Care Provider Referring Provider Specialty: Family Practice Address: [facility] [address], [place], [address] Email: [email or web address] Speech-Language Pathology Initial Evaluation CS ASSOCIATE Clinical Swallow Evaluation Start: 10/13/21 16:52 Freq: Status: Active Protocol: Document 10/13/21 16:52 GLADIS (Rec: 10/13/21 16:52 GLADIS [email or web address]) Clinical Swallow Evaluation Session Time Visit Start Time 15:30 Visit Stop Time 16:30 Total Visit Minutes 60 Visit Information Visit Number Initial Evaluation Plan of Care Dates 10/13/21 - 01/11/22 Insurance Information Medicare Referral Referring Provider Dr. Eduardo Cooley Reason for Referral Oropharyngeal Dysphagia Setting Assessment Location Outpatient Care Visit Type Note Type Initial evaluation Next Note Type Next Note Type Discharge Summary Patient Information Identification Type Name,ID Card History The pt is a 76-yr-old male familiar to this CS ASSOCIATE from previous dysphagia and dysphonia therapy. The pt has a hx of head and neck cancer with maximum left side radiation treatment, resulting in significant aspiration risk and PEG tube placement/ feeding. Most recent MBSS evaluation was done 11/04/20 at [facility] with treatment (11/26/20) including microdirect laryngoscopy with bilateral VF injection and esophagoscopy with Botox injection to UES. MBSS revealed silent penetration and aspiration of thin and nectar-thick liquids and moderate pharyngeal residue of solids in the vallecula. The pt participated in dysphagia therapy with this Clinician from November - July 2021 slowly increasing oral intake and decreasing tube feeding. At this time, the pt reports consuming >90% of his hydration and nutrition orally , with <10% consumed via tube primarily when it is more convenient to do so. He attends today with questions related to possible clinical signs of aspiration and guidance on HEP. Subjective Observations The pt arrived on time with a written list of topics, questions, and information pertinent to his current status. He provided updated case history as described above. He reported minimal coughing or throat clearing when drinking thin liquids and using chin tuck and effortful swallow. He stated he still sometimes coughs on thin liquids when he does not employ these strategies and/or is distracted. He is eating foods including spinach, lettuce and fruits with skins (e.g., blueberries) without difficulty, which is an improvement since the pt was last seen by this Clinician. The pt reported having discontinued swallow exercises over the last ~5 mos as he felt his swallow was largely back to normal. Reported by Patient Current Diet Regular,Thin liquids,Tube feeding Baseline Feeding Method Independent in self-feeding Patient Questionnaire No Objective Assessment Mental Status Alert,Responsive,Cooperative Oral Integrity WFL Dentition Within normal limits Lip Function Within normal limits Observation of Lips at Rest Symmetrical Pucker Within normal limits Lip Retraction Within normal limits Alternating Pucker/Lip Retraction Within normal limits Tongue Function Within normal limits Observations of Tongue at Rest Within normal limits Tongue Protrusion Within normal limits Tongue Retraction Within normal limits Tongue Lateralization Within normal limits Jaw Function Within normal limits Observations of Jaw at Rest Within normal limits Jaw Opening Within normal limits Jaw Closing Within normal limits Jaw Lateralization Within normal limits Nasality Within normal limits Phonation Within normal limits Respiratory Sufficiency Within normal limits Food and Liquid Trials Position During Assessment Upright (90 degrees) Liquids Trialed Thin Solids Trialed Regular Administration Type Controlled cup sip,Self- feeding Oral Impairment Within normal limits Pharyngeal Impairment Within functional limits Pharyngeal Phase Comments Pt benefits from chin tuck and effortful swallow. No overt s /sx of aspiration were observed. Mild delayed throat clearing x1 was noted after swallow of thin liquid with use of these strategies. Fatigue/Endurance Endurance WNL Comment The pt had questions related to his experiences of occasional minimal rise in temperature (from his typical ~97 degrees to ~98 degrees, never above 98.6 degrees); feelings of being flushed occasionally with wine which is new to him; and occasional chills in his extremities and/ or sweating at night. Of greater concern was a heightened sensitivity in his throat to aromas and particles in the air, at times of high stress, and sometimes d/t no obvious cause. These result in tensing of throat muscles to the point that he cannot talk, though he can breathe through such episodes. Finally, the pt asked if the opportunity to remove the PEG tube is viable . All the pt's questions were answered to the best of this Clinician's ability and to the pt's satisfaction. Strategies Attempted Chin tuck,Effortful swallow Findings Swallowing Function Pharyngeal phase dysphagia Severity of Swallow Impairment Mildly impaired Comments with use of compensatory strategies. Prognosis Good Based on Cognitive status,Family support Comment The pt presents with mild pharyngeal dysphagia characterized by reduced airway protection likely secondary to parts counterman radiation effect. With use of compensatory strategies, however, the pt's swallow is largely WFL. He demonstrates excellent self-awareness and discipline in following safe swallow protocols. The symptoms the pt questioned do not appear to be clinical symptoms of aspiration but rather symptoms of comorbidities including heart disease and effects of high levels of stress. The severity of such symptoms would be expected to be much greater if the pt were aspirating and/or developing aspiration pneumonia. His symptoms of a tightening throat are consistent to laryngospasm, with the exception that the pt has not experienced reduced ability to breathe. Education related to laryngospasm symptoms, potential causes and triggers, and relaxation exercises as treatment was provided to the pt orally, with demonstration and in writing. He verbalized understanding and agreement with possible diagnosis. Regarding the likelihood of PEG tube removal, the pt may be a good candidate for removal at this time, given his significant improvement and near 100% resumption of oral intake without negative consequences. However, given his medical history, he is at a higher risk than normal to experience return of dysphagia symptoms as he ages, which may lead to a return to PEG tube feeding. The pt was informed of this and advised to discuss with Dr. Meyer and team at Medicine for further discussion and guidance. He was in agreement with this. Also recommended the pt continue with swallow exercises that were targeted in dysphagia therapy. May reduce intensity of HEP to 3- 4x/wk for maintenance of swallow integrity, increasing if symptoms should arise. The pt was in agreement with all recommendations and all questions were answered to his satisfaction. Discussed POC and agreed that ongoing dysphagia therapy is not warranted at this time. The pt will be discharged from skilled intervention. Impact on Safety and Functioning No limitations Comments Pt may be at risk of aspiration without use of compensatory strategies Recommendations Instrumental Assessment No Swallowing Treatment No Recommended Solids Regular Recommended Liquids Thin Safety Precautions/Swallowing Reduce distractions,Remain Recommendations upright (90 degrees) during all oral intake,Upright position at least 30 minutes after meals,Small bites and sips when eating Medication Recommendations As Tolerated Education Patient/Caregiver Education Described results of evaluation,Patient expressed understanding of evaluation, Patient expressed agreement with goals & treatment plans, Patient expressed understanding of safety precautions,Patient expressed understanding of feeding recommendations
--- NOTE | 2021-10-13 17:42 | ST.IPDYTX ---
Visit Care Team Role Provider Type Eduardo Cooley MD Attending Provider Physician Family Provider Primary Care Provider Referring Provider Specialty: Family Practice Address: [address], [place], [address] Email: [email or web address] IT SECURITY MANAGER Dysphagia Treatment IT SECURITY MANAGER Dysphagia Treatment Start: 10/15/21 08:43 Freq: Status: Active Protocol: Document 10/15/21 17:37 GLADIS (Rec: 10/15/21 17:37 GLADIS [email or web address]) Dysphagia Treatment Visit Information Plan of Care Dates 10/13/21 - 01/11/22 Insurance Information Medicare Setting Assessment Location Outpatient Care Visit Type Note Type Discharge Summary Patient Information Subjective Observations The pt was seen today for consultation regarding current swallow function, questions related to clinical signs of aspiration, and guidance on long-term HEP. All questions were answered. The pt's occasional mild symptoms were determined not to be indicative of aspiration. Long -term HEP guidelines were provided. No ongoing dysphagia therapy is warranted at this time. The pt is discharged from skilled intervention. Diet Recommendations Recommendations Continue Current Diet Liquids Order Thin Diet Order Regular Medication Recommendations As Tolerated Comments May supplement oral intake with PEG tube feeding as needed/desired Aspiration Precautions Recommended Precautions Small Bites/Sips,Chin Tuck, Effortful Swallow Treatment Plan Appropriate for Continued Therapy No
== END 2021-10-22 09:21 ==
LOC: SP 15:09
PROVIDERS: Family Provider Family Medicine; PCP Family Medicine; Referring Provider Family Medicine; Visit Provider Family Medicine
DX: R13.10 Dysphagia, unspecified (principal); G90.9 Disorder of the autonomic nervous system, unspecified
CPT/HCPCS: 92610

== ENCOUNTER 2022-01-18 10:39 | Emergency (ER) | payer MEDICARE, SELFPAY ==
[2022-01-18 10:47] VITALS: BP 184/117; PULSE 78; RESP 16; TEMP 36.4; O2SAT 98; BMI 20.3
--- NOTE | 2022-01-18 11:10 | PC.NURSE ---
Patient has dressing over feeding tube site. Patient reports changing dressing this morning, noted increase redness and pain in abd. Patient states tube fell out while changing dressing. Patient brings feeding tube to department in [facility]. Patient states he is concerned about infection. Some drainage and redness noted to skin surrounding insertion site.
--- NOTE | 2022-01-18 12:51 | ED_ITS ---
HPI - Skin/Abscess/Foreign Bdy General Chief complaint: Skin/Abscess/Foreign Body Stated complaint: Feeding tube causing pain, poss infection Time Seen by Provider: 01/18/22 12:51 Mode of arrival: Family Vehicle History of Present Illness HPI narrative: 76-year-old gentleman with a history of prior cardiac surgery, hypothyroidism 2 and half years ago ended up with a feeding tube placed and changed every 6 months followed by Interventional Radiology at the [facility]. He has been working with speech therapy and at this point is maintaining his weight hydration and p.o. intake status and has been discussing removing his feeding tube in the near future. He has been trying to schedule an appointment at the [facility] to have it removed but has been unable to do so over the last 2 weeks. This morning he was changing the dressing on the tube and the tube came out. He has had the tube dislodged previously and has been able to successfully replace it. He did try replacing it today but had significant pain with that. He comes in for further evaluation. He is moderately concerned about the possibility of aspiration. He states that he does occasionally cough after eating. He is not having any significant change to his baseline and cough, he has had no fevers and no dyspnea. He has been eating regularly. There is no abdominal pain aside from trying to replace his feeding tube and no lower extremity edema. Related Data Home Medications Medication Instructions Recorded Confirmed aspirin 81 mg tablet,delayed 81 mg PO DAILY 08/03/19 08/03/19 release famotidine 20 mg tablet 20 mg PO BID 08/03/19 08/03/19 levothyroxine 112 mcg tablet 112 mcg PO DAILY 08/03/19 08/03/19 Allergies Allergy/AdvReac Type Severity Reaction Status Date / Time No Known Drug Allergies Allergy Verified 01/18/22 10:50 Review of Systems Review of Systems Narrative: Remainder of complete review of systems is otherwise unremarkable except for that included in the HPI. Patient History Medical History (Updated 01/18/22 @ 13:12 by Jessica Dee MD) BPH associated with nocturia Uses feeding tube Social History Smoking Status: Never smoker Smoking Status: Never smoker Substance Use Type: does not use Exam Initial Vital Signs Initial Vital Signs: Vital Signs Temperature 97.6 F 04/24/22 10:47 Pulse Rate 78 01/18/22 10:47 Respiratory Rate 16 01/18/22 10:47 Blood Pressure 184/117 H 01/18/22 10:47 Pulse Oximetry 98 01/18/22 10:47 General: Healthy appearing, in no acute distress. Able to give a complete and coherent history. Well-nourished well-developed HEENT: Moist mucous membranes, normal sclera with reactive pupils, Respiratory: Lungs are clear to auscultation, no wheezing no rales no rhonchi. Full and symmetrical air movement Cardiac: Regular rate and rhythm no murmurs no bruits Abdomen: Soft, nontender, good bowel tones, no flank pain. Feeding tube site in the left mid quadrant is minimally erythematous under the edge of the prior plastic seat but no significant discharge or skin breakdown otherwise. Skin: Warm and dry, no rashes Neurologic: Grossly neurologically intact with no obvious asymmetries or abnormalities Extremities: No trauma, well perfused Psych: Cooperative, appropriate insight and affect Course Vital Signs Vital signs: Vital Signs - 8 hr 01/18/22 10:47 Temperature 97.6 F Pulse Rate 78 Respiratory Rate 16 Blood Pressure 184/117 H Pulse Oximetry 98 MDM - Skin/Abscess/Foreign Bdy MDM Narrative Medical decision making narrative: 76-year-old gentleman with a history of feeding tube for 2 and half years. Was talking does physicians about having it removed and accidentally dislodged the tube this morning. He comes in for further evaluation. At this point the site has some minor granulation tissue but is otherwise unremarkable. Antibiotic ointment and a dressing is applied to the area. In light of the fact that this gentleman is now able to eat drink and maintain his set weight without a feeding tube will go ahead and leave it out and have him follow-up with his primary care physicians at the [facility]. He was concerned about the possibility of aspiration pneumonia and he has no clinical signs or symptoms of such and reassurance is given Discharge Plan Departure Patient Disposition: Home Clinical Impression: Complication of feeding tube Activity Restrictions/Additional Instructions: Thank you for coming in today The feeding tube site itself actually looks good with no sign of infection. Given the fact that you have been able to eat and drink, you are maintaining her weight and you are already in discussion with your doctors about removing her feeding tube, on going to suggest we go ahead and leave it out. On clinical exam, your lungs sound beautiful and I do not suspect aspiration pneumonia or developing aspiration pneumonia at this time. please keep clean dressing over the site as it heals. Please contact your doctors at the [facility] to let them know that the tube has come out and let them know how you are doing. If you develop new signs symptoms or complaints, please feel free to return to ER Prescriptions: No Action levothyroxine 112 mcg tablet 112 mcg PO DAILY 0RF Label Comments: TAKE 1 TABLET BY MOUTH ONCE DAILY IN THE MORNING ON AN EMPTY STOMACH 30 MINUTES PRIOR TO EATING aspirin 81 mg Tablet,Delayed Release (Dr/Ec) 81 mg PO DAILY 0RF famotidine 20 mg Tablet 20 mg PO BID 0RF Referrals: Eduardo Cooley MD [Primary Care Provider] -
[2022-01-18 13:08] VITALS: BP 199/101; PULSE 66; RESP 16; O2SAT 100
== END 2022-01-18 13:18 | disposition home or self-care (01) ==
PROVIDERS: Emergency Provider Emergency Medicine; Family Provider Family Medicine; PCP Family Medicine
DX: T85.528A Displacement of other gastrointestinal prosthetic devices, implants and grafts, initial encounter (principal)
CPT/HCPCS: 99281

== ENCOUNTER → 2022-10-08 08:45 | Outpatient (CLI) | payer MEDICARE, SELFPAY | PROVIDERS: Family Provider Family Medicine; PCP Family Medicine; Referring Provider Family Medicine; Visit Provider Surgery | DX: T81.83XA Persistent postprocedural fistula, initial encounter (principal) | CPT/HCPCS: 17250; 99203; 99213 ==

== ENCOUNTER → 2022-10-13 16:49 | Outpatient (CLI) | payer MEDICARE, SELFPAY ==
[2022-10-13 17:16] LABS: BUN Creatinine Ratio 20.6 (6-22); Blood Urea Nitrogen 14 mg/dL (9-20); Estimated Glomerular Filt Rate > 60 mL/min (>60)
--- NOTE | 2022-10-13 17:46 | DI.CT.S_ITS ---
PROCEDURE: CT ABDOMEN PELVIS W CON INDICATIONS: gastrocutaneous fistula TECHNIQUE: After the administration of intravenous contrast, axial sections acquired from the lung bases to the pubic symphysis. Coronal and sagittal reformats were performed. For radiation dose reduction, the following was used: automated exposure control, adjustment of mA and/or kV according to patient size. COMPARISON: None. FINDINGS: Image quality: Excellent. Lung bases: Lung bases are clear. Heart size is normal. There is a 6 millimeter nodule in the right lower lobe laterally Solid organs: Liver: The liver has no mass or intrahepatic biliary ductal dilatation. The portal vein and hepatic veins are patent. Biliary: The gallbladder has no gallstones, pericholecystic fluid, gallbladder wall thickening, or surrounding inflammatory change. Pancreas: The pancreas has no mass or ductal dilatation. There is no surrounding inflammation. Spleen: Normal size. There are no masses. Adrenals: No hypertrophy or nodules. Kidneys: No obstructive calculus or hydronephrosis. No solid mass. No cystic mass. Peritoneum and bowel: The distal esophagus is normal. The stomach has a normal appearance. There is a dimple in the skin of the left upper quadrant adjacent to the anterior wall of the stomach, likely a site of prior G-tube placement. A metallic density is seen in the stomach, likely a T fastener from G-tube placement. No definite gastric cutaneous tract is seen by CT.. The small bowel has a normal caliber and appearance. The terminal ileum is normal. The large bowel has a normal caliber and appearance. There is increased stool throughout the large bowel consistent with constipation. No free fluid or air. Nodes and vessels: No retroperitoneal or mesenteric adenopathy by size criteria. Aorta and inferior vena cava are normal in size. Miscellaneous: No abdominal wall mass or hernia. PELVIS: Genitourinary: The bladder has no wall thickening or mass. No bladder calcifications. Bones: No suspicious bony lesions. No vertebral body compression fractures. IMPRESSION: Findings of prior G-tube placement. No gastrocutaneous fistula is seen. Dictated by: Dino Jose M.D. on 10/13/2022 at 18:44 Approved by: Dino Jose M.D. on 10/13/2022 at 20:20
== END ==
PROVIDERS: Family Provider Family Medicine; PCP Family Medicine; Referring Provider Surgery; Visit Provider Surgery
DX: K31.6 Fistula of stomach and duodenum (principal); R91.1 Solitary pulmonary nodule; Z93.1 Gastrostomy status
CPT/HCPCS: 36415; 74177; 82565; 84520; 99213

== ENCOUNTER → 2023-02-18 07:31 | Outpatient (CLI) | payer MEDICARE, SELFPAY ==
--- NOTE | 2023-02-18 07:33 | DI.NM.S_ITS ---
PROCEDURE: NM GASTRIC EMPTYING STUDY RADIOPHARMACEUTICAL: 1 mCi Tc-99m sulfur colloid in an egg sandwich. INDICATIONS: evaluate gastric emptying TECHNIQUE: A Tc-99m labeled sulfur colloid labeled egg sandwich or oatmeal was served to the patient. Anterior and posterior planar images of the abdomen were obtained at 0 minutes and 30 minutes, then at hourly intervals up to 4 hours. The patient was upright and ambulating during the interval. COMPARISON: None. FINDINGS: The stomach has normal size, morphology, and position. There is normal emptying of solid gastric contents from the stomach by visual inspection. No gastroesophageal reflux is visualized. The percentage of tracer retained at specific time points are as follows: Time point Percent gastric retention Normal range 30 minutes 59% 70% or more 1 hour 31% 30% to 90% 2 hours 16% 60% or less 3 hours 6% 30% or less IMPRESSION: Normal gastric emptying study. Dictated by: Freedom Esteban M.D. on 02/18/2023 at 13:45 Approved by: Freedom Esteban M.D. on 02/18/2023 at 13:45
== END ==
PROVIDERS: Family Provider Family Medicine; PCP Family Medicine; Referring Provider Surgery; Visit Provider Surgery
DX: R14.0 Abdominal distension (gaseous) (principal); K30 Functional dyspepsia; K31.6 Fistula of stomach and duodenum
CPT/HCPCS: 78264; A9541

== ENCOUNTER → 2024-01-13 11:00 | Outpatient (CLI) | payer MEDICARE, SELFPAY ==
--- NOTE | 2024-01-13 | DI.RAD.S_ITS ---
PROCEDURE: XR CHEST 2V INDICATIONS: fatigue, weakness, frequency of micturition TECHNIQUE: 2 views of the chest were acquired. COMPARISON: [facility], CR, XR CHEST 2V, 08/25/2021, 14:24. FINDINGS: Surgical changes and devices: Midline sternal wires. Cardiac valve prosthesis. Lungs and pleura: Lungs are clear. No pleural effusions or pneumothorax. Mediastinum: Mediastinal contours are normal. Heart size is normal. Bones and chest wall: No suspicious bony abnormalities. Soft tissues appear unremarkable. IMPRESSION: No acute cardiopulmonary abnormality is seen. Approved by: Alhaji Herzog M.D. on 01/13/2024 at 21:29
== END ==
PROVIDERS: Family Provider Family Medicine; PCP Family Medicine; Referring Provider Family Medicine; Visit Provider Family Medicine
DX: R35.0 Frequency of micturition (principal); R53.83 Other fatigue; R53.1 Weakness
CPT/HCPCS: 71046

== ENCOUNTER 2024-04-22 19:16 | Emergency (ER) | payer MEDICARE, SELFPAY ==
[2024-04-22 19:19] VITALS: BP 100/84; PULSE 76; RESP 18; TEMP 36.9; O2SAT 96; BMI 18.3
--- NOTE | 2024-04-22 19:26 | DI.RAD.S_ITS ---
PROCEDURE: XR CHEST 1V INDICATIONS: chest pain TECHNIQUE: One view of the chest was acquired. COMPARISON: [facility], CR, XR CHEST 2V, 01/13/2024, 11:14. [facility], CR, XR CHEST 2V, 08/25/2021, 14:24. FINDINGS: Surgical changes and devices: Sternotomy wires. Valvular device. Lungs and pleura: Dense consolidation is seen in the right mid lateral lung. No drainable pleural effusion. Possible mild right infrahilar opacity also present. Mediastinum: Normal heart size. Bones and chest wall: Degenerative changes. IMPRESSION: Dense consolidation in the right mid lung probably infectious. Consider future imaging surveillance to assess for resolution. Dictated by: Blayne Padilla M.D. on 04/22/2024 at 19:55 Approved by: Blayne Padilla M.D. on 04/22/2024 at 19:56
[2024-04-22 19:30] VITALS: BP 139/68; PULSE 75; RESP 18; O2SAT 97
--- NOTE | 2024-04-22 19:37 | EKG_ITS ---
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
[2024-04-22 20:00] VITALS: BP 127/60; PULSE 75; RESP 15; O2SAT 99
[2024-04-22 20:02] LABS: Add Manual Diff / Slide Review NO; Basophils Absolute Auto 100 /uL (0-100); Basophils Percent Auto 0.4 % (0-2); Eosinophils Absolute Auto 0 /uL (0-450); Eosinophils Percent Auto 0.1 % (2-4); Hematocrit 38.8 % (41-53); Lymphocytes Absolute Auto 800 /uL (1100-4500); Lymphocytes Percent Auto 3.9 % (25-40); Mean Corpuscular HGB Conc 33.5 % (30-36); Mean Corpuscular Hemoglobin 31.7 PG (26-34); Mean Corpuscular Volume 94.5 fL (80-100); Monocytes Absolute Auto 700 /uL (0-900); Monocytes Percent Auto 3.6 % (3-14); Neutrophils Absolute Auto 18200 /uL (1500-7000); Platelet Count 200 X10^3/uL (150-400); Red Blood Cell Count 4.11 X10^6/uL (4.5-5.9); Red Cell Distribution Width 14.6 % (11.6-14.8); White Blood Cell Count 19.8 X10^3/uL (4.5-11.0)
[2024-04-22 20:09] LABS: INR 1.5 (0.9-1.3); Prothrombin Time 17.2 SECONDS (9.4-12.5)
[2024-04-22 20:12] LABS: PTT Partial Thromboplastin Tim 33 SECONDS (25.1-36.5)
[2024-04-22 20:14] LABS: Alanine Aminotransferase 16 IU/L (<50); Albumin 3.1 g/dL (3.5-5.0); Albumin Globulin Ratio 1.1 (1.0-2.8); Alkaline Phosphatase 49 U/L (38-126); Aspartate Aminotransferase 18 IU/L (17-59); BUN Creatinine Ratio 35.4 (6-22); Bilirubin Total 1.3 mg/dL (0.2-1.3); Blood Urea Nitrogen 23 mg/dL (9-20); Calcium 7.5 mg/dL (8.4-10.2); Carbon Dioxide 26 mmol/L (22-32); Chloride 107 mmol/L (98-107); Creatine Kinase 27 U/L (55-170); Estimated Glomerular Filt Rate > 60 mL/min (>60); Globulin 2.8 g/dL (1.7-4.1); Glucose 82 mg/dL (80-110); HEMOLYSIS 28 (0-50); Lipase 121 U/L (23-300); Potassium 3.5 mmol/L (3.4-5.1); Sodium 134 mmol/L (137-145); Total Protein 5.9 g/dL (6.3-8.2)
[2024-04-22 20:25] LABS: Troponin I < 0.012 ng/mL (0.01-0.034)
[2024-04-22 20:30] VITALS: BP 141/72; PULSE 78; RESP 17; O2SAT 94
[2024-04-22 20:57] LABS: Adenovirus Not Detected (Not Detect); B. parapertussis Not Detected (Not Detecte); Bordetella pertussis Not Detected (Not Detect); Chlamydophila pneumoniae Not Detected (Not Detect); Coronavirus 229E Not Detected (Not Detect); Coronavirus HKU1 Not Detected (Not Detect); Coronavirus NL 63 Not Detected (Not Detect); Coronavirus OC43 Not Detected (Not Detect); Human Metapneumovirus Not Detected (Not Detect); Human Rhinovirus/Enterovirus Not Detected (Not Detect); Influenza A Not Detected (Not Detect); Influenza B Not Detected (Not Detect); Mycoplasma pneumoniae Not Detected (Not Detect); Parainfluenza Virus 1 Not Detected (Not Detect); Parainfluenza Virus 2 Not Detected (Not Detect); Parainfluenza Virus 3 Not Detected (Not Detect); Parainfluenza Virus 4 Not Detected (Not Detect); Respiratory Syncytial Virus Not Detected (Not Detect); SARS- CoV-2 Not Detected (Not Detecte)
[2024-04-22 21:00] VITALS: BP 153/85; PULSE 84; RESP 20; O2SAT 94
--- NOTE | 2024-04-22 21:19 | ED_ITS ---
HPI - General Adult General Chief complaint: Weakness Stated complaint: loss of appitite, low fever, weak Time Seen by Provider: 04/22/24 19:18 Source: patient Mode of arrival: Wheelchair History of Present Illness HPI narrative: Patient is a 78-year-old male was here for evaluation of several days of a loss of appetite, low-grade fever, feeling weak. No cough. No shortness of breath past his baseline issues. He does have history of radiation to his neck and does have some issues with swallowing but that has not been an issue past his baseline. He denies any headache. No abdominal pain. No vomiting. No change in bowel habits or urinary symptoms. Has not tried anything for symptoms prior to arrival. Related Data Home Medications Medication Instructions Recorded Confirmed famotidine 20 mg tablet 20 mg PO BID 08/03/19 01/26/23 levothyroxine 112 mcg tablet 112 mcg PO DAILY 08/03/19 01/26/23 atorvastatin 40 mg tablet 40 mg PO DAILY 10/13/22 01/26/23 Previous Rx's Medication Instructions Recorded psyllium husk (with sugar) 3.4 1 tbsp PO BID #822 grams 01/29/23 gram/7 gram oral powder (Fiber (psyllium husk-sugar)) azithromycin 250 mg tablet 250 mg PO DAILY 4 days #4 tabs 04/22/24 Allergies Allergy/AdvReac Type Severity Reaction Status Date / Time No Known Drug Allergies Allergy Verified 04/22/24 19:19 Review of Systems Review of Systems ROS Unobtainable: All systems reviewed & are unremarkable except as noted in HPI and below Patient History Medical History Uses feeding tube BPH associated with nocturia Surgical History H/O inguinal hernia repair H/O mitral valve repair History of radical dissection of right side of neck Social History Smoking Status: Never smoker Smoking Status: Never smoker Substance Use Type: does not use Exam Initial Vital Signs Initial Vital Signs: Vital Signs Temperature 98.4 F 04/22/24 19:19 Pulse Rate 76 04/22/24 19:19 Respiratory Rate 18 04/22/24 19:19 Blood Pressure 100/84 04/22/24 19:19 Pulse Oximetry 96 04/22/24 19:19 Oxygen Delivery Method Room Air 04/22/24 19:19 Const General: cooperative, comfortable and No ill appearing [facility] Head: normal to inspection Resp Effort & Inspection: normal respiratory effort Auscultation: clear to auscultation bilaterally Cardio Rate: regular rate Rhythm: regular rhythm Neuro General: patient alert and patient awake Other: No cellulitis. Extrem General: No edema Course Orders Ordered: ED Orders 04/22/24 19:26 XR chest 1V Stat EKG-12 Lead Stat 04/22/24 19:45 Respiratory Panel (Film Array) Stat 04/22/24 19:53 Complete Blood Count AUTO DIFF Stat Comprehensive Metabolic Panel Stat Lipase Stat Magnesium Stat PTT Partial Thromboplastin Skyler Stat Prothrombin Time INR Stat Troponin & CK Cardiac Panel Stat Discontinued Medications Azithromycin (Azithromycin 250 Mg Tablet) 500 mg PO NOW ONE Stop: 04/22/24 21:21 Last Admin: 04/22/24 21:24 Dose: 500 mg Documented By: SAMIR Vital Signs Vital signs: Vital Signs - 8 hr 04/22/24 19:19 04/22/24 19:30 04/22/24 19:30 Temperature 98.4 F Pulse Rate 76 75 Respiratory Rate 18 18 Blood Pressure 100/84 139/68 Pulse Oximetry 96 97 Oxygen Delivery Method Room Air 04/22/24 20:00 04/22/24 20:00 04/22/24 20:30 Temperature Pulse Rate 75 Respiratory Rate 15 Blood Pressure 127/60 141/72 H Pulse Oximetry 99 Oxygen Delivery Method 04/22/24 20:30 04/22/24 21:00 04/22/24 21:00 Temperature Pulse Rate 78 84 Respiratory Rate 17 20 Blood Pressure 153/85 H Pulse Oximetry 94 94 Oxygen Delivery Method Medical Decision Making Lab Data Lab results reviewed: Yes I reviewed the patient's lab results. 04/22/24 19:53 04/22/24 19:53 Labs: Lab Results 04/22/24 04/22/24 Range/Units 19:45 19:53 WBC 19.8 H (4.5-11.0) X10^3/uL RBC 4.11 L (4.5-5.9) X10^6/uL Hgb 13.0 L (13.5-17.5) g/dL Hct 38.8 L (41-53) % MCV 94.5 (80-100) fL MCH 31.7 (26-34) PG MCHC 33.5 (30-36) % RDW 14.6 (11.6-14.8) % Plt Count 200 (150-400) X10^3/uL Neut % (Auto) 92.0 H (50-75) % Lymph % (Auto) 3.9 L (25-40) % [place] % (Auto) 3.6 (3-14) % Eos % (Auto) 0.1 L (2-4) % Baso % (Auto) 0.4 (0-2) % Neut # (Auto) 16496 H (8336-4626) /uL Lymph # (Auto) 800 L (0148-1030) /uL [place] # (Auto) 700 (0-900) /uL Eos # (Auto) 0 (0-450) /uL Baso # (Auto) 100 (0-100) /uL PT 17.2 H (9.4-12.5) SECONDS INR 1.5 H (0.9-1.3) APTT 33 (25.1-36.5) SECONDS Sodium 134 L (137-145) mmol/L Potassium 3.5 (3.4-5.1) mmol/L Chloride 107 (98-107) mmol/L Carbon Dioxide 26 (22-32) mmol/L BUN 23 H (9-20) mg/dL Creatinine 0.65 L (0.66-1.25) mg/dL Estimated GFR > 60 (>60) mL/min BUN/Creatinine Ratio 35.4 H (6-22) Glucose 82 (80-110) mg/dL Calcium 7.5 L (8.4-10.2) mg/dL Magnesium 2.0 (1.6-2.3) mg/dL Total Bilirubin 1.3 (0.2-1.3) mg/dL AST 18 (17-59) IU/L ALT 16 (<50) IU/L Alkaline Phosphatase 49 (38-126) U/L Total Creatine Kinase 27 L (55-170) U/L Troponin I < 0.012 (0.01-0.034) ng/mL Total Protein 5.9 L (6.3-8.2) g/dL Albumin 3.1 L (3.5-5.0) g/dL Globulin 2.8 (1.7-4.1) g/dL Albumin/Globulin Ratio 1.1 (1.0-2.8) Lipase 121 (23-300) U/L Chlamy pneumoniae PCR Not detected (Not Detect) Adenovirus (PCR) Not detected (Not Detect) B.parapertussis DNA PCR Not detected (Not Detecte) Coronavirus OC43 (PCR) Not detected (Not Detect) Coronavirus HKU1 (PCR) Not detected (Not Detect) Coronavirus 229E (PCR) Not detected (Not Detect) SARS-CoV-2 (PCR) Not detected (Not Detecte) Coronavirus NL63 (PCR) Not detected (Not Detect) Human Metapneumovir PCR Not detected (Not Detect) Influenza Type A (PCR) Not detected (Not Detect) Influenza Type B (PCR) Not detected (Not Detect) M. pneumoniae (PCR) Not detected (Not Detect) Parainfluenza 1 (PCR) Not detected (Not Detect) Parainfluenza 2 (PCR) Not detected (Not Detect) Parainfluenza 3 (PCR) Not detected (Not Detect) Parainfluenza 4 (PCR) Not detected (Not Detect) RSV (PCR) Not detected (Not Detect) Entero/Rhino (PCR) Not detected (Not Detect) Imaging Data Chest x-ray: Radiologist's Impression: PROCEDURE: XR CHEST 1V INDICATIONS: chest pain TECHNIQUE: One view of the chest was acquired. COMPARISON: [facility], , XR CHEST 2V, 01/13/2024, 11:14. [facility], , XR CHEST 2V, 08/25/2021, 14:24. FINDINGS: Surgical changes and devices: Sternotomy wires. Valvular device. Lungs and pleura: Dense consolidation is seen in the right mid lateral lung. No drainable pleural effusion. Possible mild right infrahilar opacity also present. Mediastinum: Normal heart size. Bones and chest wall: Degenerative changes. IMPRESSION: Dense consolidation in the right mid lung probably infectious. Consider future imaging surveillance to assess for resolution. ECG Data Attestation: I personally reviewed and interpreted this ECG as follows: Interpretation: Sinus rhythm Ventricular rate is 76 First-degree AV block with MO interval of 2-4 milliseconds Normal QRS Normal QTC Right bundle-branch block No ST T wave changes MDM Narrative Medical decision making narrative: He does have a leukocytosis of 19. A chest x-ray concerning for pneumonia. When I told this to the patient he stated that he was not surprised because he has had pneumonia in the past and this is how he felt afterwards. He was not hypoxic. Not tachypneic. He brought up the concern that potentially this was an aspiration issue because he has had a G-tube in the past and does have some issues with swallowing but does not think that any that is changed recently. I did tell him that this potentially could be an aspiration however for right now we would treated as a community-acquired pneumonia. He was given 1st dose of antibiotics here in the ER and a prescription for the remainder of the course was sent to the pharmacy of his choice. He was able to swallow the antibiotic here without issues. There was no indication for admission to the hospital as he was not tachypneic not hypoxic and overall appears well. He was given return precautions and follow-up instructions. He expressed understanding and agreement with plan. Discharge Plan Departure Patient Disposition: Home Clinical Impression: Pneumonia Instructions: DI for Pneumonia -- Adult Activity Restrictions/Additional Instructions: Your workup today is consistent with a pneumonia in your right lung. We do need to put you on antibiotics. Your 1st dose was given here in the emergency department and a prescription for the remainder of the course was sent to [facility]. Please take it as directed. I do recommend that you contact your primary doctor for a follow-up to ensure resolution of your symptoms. Return to the emergency department for new symptoms. Prescriptions: New azithromycin 250 mg tablet 250 mg PO DAILY 4 Days Qty: 4 0RF Rx Instructions: start on day 2 of therapy No Action Fiber (psyllium husk-sugar) 3.4 gram/7 gram powder 1 tbsp PO BID Qty: 822 0RF atorvastatin 40 mg tablet 40 mg PO DAILY levothyroxine 112 mcg tablet 112 mcg PO DAILY Patient Comments: TAKE 1 TABLET BY MOUTH ONCE DAILY IN THE MORNING ON AN EMPTY STOMACH 30 MINUTES PRIOR TO EATING famotidine 20 mg Tablet 20 mg PO BID Referrals: Eduardo Cooley MD [Primary Care Provider] - Stand Alone Forms: Patient Portal/API
[2024-04-22] MEDS: AZITHROMYCIN 250 MG TABLET 500 MG PO (21:24)
== END 2024-04-22 21:36 | disposition home or self-care (01) ==
PROVIDERS: Emergency Provider Emergency Medicine; Family Provider Family Medicine; PCP Family Medicine
DX: J18.9 Pneumonia, unspecified organism (principal); I44.0 Atrioventricular block, first degree
CPT/HCPCS: 36415; 71045; 80053; 82550; 83690; 83735; 84484; 85025; 85610; 85730; 87633; 93005; 99283; 99284

== ENCOUNTER 2025-01-04 10:46 | Emergency (ER) | payer MEDICARE, SELFPAY ==
[2025-01-04] VITALS (10 sets, daily range): BP systolic 108–179; BP diastolic 55–86; PULSE 61–73; RESP 16–21; TEMP 36.5; O2SAT 93–98; BMI 20.9
--- NOTE | 2025-01-04 11:02 | ED_ITS ---
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 History of mitral valve open heart repair, apparently not replacement, on Xarelto chronic anticoagulation but no warfarin. Post cardiac surgery had feeding tube, removed 3 years ago. March 2024 he had generalized weakness that was eventually found to be due to pneumonia without significant coughing, does not remember having aspiration pneumonia diagnosis in the past. Since yesterday he has had generalized weakness, concerned that he might have pneumonia like he did last year. Not really having cough but did not have significant cough last time he had diagnosis of pneumonia. Denies nausea or vomiting, denies diarrhea, denies black or red stools, thinks that he is eating and drinking about the same as he usually does. No dysuria or frequency of urination. No history of diabetes. Denies pain to his abdomen, back, head, neck. No recent change in the chronic hoarseness of his voice. No neck masses or difficulty moving his neck. PCP Dr Cooley. Related Data Home Medications Medication Instructions Recorded Confirmed famotidine 20 mg tablet 20 mg PO BID 08/03/19 01/26/23 levothyroxine 112 mcg tablet 112 mcg PO DAILY 08/03/19 01/26/23 atorvastatin 40 mg tablet 40 mg PO DAILY 10/13/22 01/26/23 Previous Rx's Medication Instructions Recorded psyllium husk (with sugar) 3.4 1 tbsp PO BID #822 grams 01/29/23 gram/7 gram oral powder (Fiber (psyllium husk-sugar)) amoxicillin 875 mg-potassium 1 tab PO BID #20 tabs 01/04/25 clavulanate 125 mg tablet doxycycline hyclate 100 mg capsule 100 mg PO BID #20 caps 01/04/25 Allergies Allergy/AdvReac Type Severity Reaction Status Date / Time No Known Drug Allergies Allergy Verified 04/22/24 19:19 Patient History Medical History Uses feeding tube BPH associated with nocturia Surgical History H/O inguinal hernia repair H/O mitral valve repair History of radical dissection of right side of neck Exam Narrative Exam Narrative: GENERAL: Well-developed patient, in mild distress. HEAD: Atraumatic. Normocephalic. EYES: Pupils equal round and reactive. Extraocular motions intact. No scleral icterus. No injection or drainage. ENT: Nose without bleeding, purulent drainage. Throat without erythema, tonsillar hypertrophy or exudate. Airway patent. NECK: Trachea midline. Non tender CARDIOVASCULAR: Regular rate and rhythm without murmurs, gallops, or rubs. RESPIRATORY: Clear to auscultation. Breath sounds equal bilaterally. No wheezes, rales, or rhonchi. GASTROINTESTINAL: Abdomen soft, non-tender, nondistended. EXTREMITIES: No edema or joint tenderness. BACK: Nontender without deformity or crepitance. No flank tenderness. NEURO: AOx3. Motor functions grossly nonfocal SKIN: No rash or erythema of visible areas Initial Vital Signs Initial Vital Signs: Vital Signs Pulse Rate 69 01/04/25 10:59 Pulse Oximetry 97 01/04/25 10:59 Course Orders Ordered: ED Orders 01/04/25 14:13 Urinalysis and Microscopic Stat Discontinued Medications Doxycycline Hyclate (Doxycycline Hyclate 100 Mg Tablet) 100 mg PO NOW ONE Stop: 01/04/25 13:53 Last Admin: 01/04/25 14:31 Dose: 100 mg Documented By: PRANAV Sodium Chloride (Normal Saline 0.9%) 1,000 mls @ 1,000 mls/hr IV BOLUS ONE Stop: 01/04/25 12:28 Last Infusion: 01/04/25 14:31 Dose: Infused Documented By: Admin: 01/04/25 11:32 Dose: 1,000 mls/hr Documented By: LEDA Ceftriaxone Sodium 1,000 mg/ (Sodium Chloride) 100 mls @ 200 mls/hr IV NOW ONE Stop: 01/04/25 13:53 Last Admin: 01/04/25 14:32 Dose: 200 mls/hr Documented By: PRANAV Vital Signs Vital signs: Vital Signs - 8 hr 01/04/25 15:07 01/04/25 15:07 Pulse Rate 69 Blood Pressure 179/86 H Pulse Oximetry 97 Medical Decision Making Lab Data Lab results reviewed: Yes I reviewed the patient's lab results. Lab results narrative: White blood cell count 46381, hemoglobin 13.5, platelets adequate. Glucose 89. BUN creatinine normal. Serum CO2 28. Sodium 131, with potassium 4.4, chloride 95. T bili 1.4 with other liver functions normal. COVID, influenza, RSV negative. Troponin negative/unmeasurable. 01/04/25 11:15 01/04/25 11:15 Labs: Lab Results 01/04/25 01/04/25 Range/Units 11:15 14:13 WBC 18.0 H (4.5-11.0) X10^3/uL RBC 4.18 L (4.5-5.9) X10^6/uL Hgb 13.5 (13.5-17.5) g/dL Hct 40.6 L (41-53) % MCV 97.0 (80-100) fL MCH 32.3 (26-34) PG MCHC 33.3 (30-36) % RDW 13.3 (11.6-14.8) % Plt Count 216 (150-400) X10^3/uL Neut % (Auto) 88.9 H (50-75) % Lymph % (Auto) 3.4 L (25-40) % [place] % (Auto) 6.7 (3-14) % Eos % (Auto) 0.7 L (2-4) % Baso % (Auto) 0.3 (0-2) % Neut # (Auto) 88179 H (0806-1958) /uL Lymph # (Auto) 600 L (0652-9512) /uL [place] # (Auto) 1200 H (0-900) /uL Eos # (Auto) 100 (0-450) /uL Baso # (Auto) 0 (0-100) /uL Sodium 131 L (137-145) mmol/L Potassium 4.4 (3.4-5.1) mmol/L Chloride 95 L (98-107) mmol/L Carbon Dioxide 28 (22-32) mmol/L BUN 21 H (9-20) mg/dL Creatinine 0.86 (0.66-1.25) mg/dL Estimated GFR > 60 (>60) mL/min BUN/Creatinine Ratio 24.4 H (6-22) Glucose 89 (80-110) mg/dL Lactate 1.2 (0.7-2.1) mmol/L Calcium 9.1 (8.4-10.2) mg/dL Total Bilirubin 1.4 H (0.2-1.3) mg/dL AST 17 (17-59) IU/L ALT 17 (<50) IU/L Alkaline Phosphatase 62 (38-126) U/L Troponin I < 0.012 (0.01-0.034) ng/mL Total Protein 6.9 (6.3-8.2) g/dL Albumin 3.9 (3.5-5.0) g/dL Globulin 3.0 (1.7-4.1) g/dL Albumin/Globulin Ratio 1.3 (1.0-2.8) TSH 1.01 (0.47-4.68) uIU/mL Urine Color Yellow Urine Appearance Clear Urine pH 7.5 (4.5-8.0) Ur Specific [place] 1.010 (1.000-1.035) Urine Protein Negative (Negative) Urine Glucose (UA) Negative (Negative) g/dL Urine Ketones Negative (NEGATIVE) Urine Occult Blood Negative (Negative) Urine Nitrate Negative (Negative) Urine Bilirubin Negative (NEGATIVE) Urine Urobilinogen 0.2 (0.2) E.U./dL Ur Leukocyte Esterase Negative (NEGATIVE) Urine RBC None seen (0-5/HPF) Urine WBC None seen (0-5/HPF) Ur Squamous Epith Cells None seen (0-5/HPF) Amorphous Sediment 2+ Urine Bacteria None seen (None) Ur Culture Indicated? Cult not indicated Vol Urine Centrifuged 10ml (spun) SARS-CoV-2 (PCR) Negative (Negative) Influenza A (RT-PCR) Flu a negative (NEGATIVE) Influenza B (RT-PCR) Flu b negative (NEGATIVE) RSV (PCR) Negative (Negative) Imaging Data Chest x-ray: Radiologist's Impression: [address] [address] XRay Report Signed Patient: Sukhi Cavazos MR#: [id number] : 1945 Acct:[id number] Age/Sex: 79 / M Date of Service: 01/04/25 Loc: ED Accession Number: [id number] Procedure: XR chest 2V Ordering Provider: Joshua Valverde MD PROCEDURE: XR CHEST 2V INDICATIONS: Cough, shortness of breath TECHNIQUE: 2 views of the chest were acquired. COMPARISON: [facility], CR, XR CHEST 1V, 04/22/2024, 19:30. [facility], CR, XR CHEST 2V, 01/13/2024, 11:14. [facility], CR, XR CHEST 2V, 08/25/2021, 14:24. FINDINGS: Surgical changes and devices: Sternotomy wires and prosthetic heart valve are present. Lungs and pleura: Scattered right greater than left pulmonary opacities. Trace right pleural effusion. No pneumothorax. Mediastinum: Mediastinal contours are normal. Heart size is normal. Bones and chest wall: No suspicious bony abnormalities. Soft tissues appear unremarkable. IMPRESSION: Scattered right greater than left pulmonary opacities are suspicious for pneumonia, including possibly with bacterial, viral or atypical agents. Trace right pleural effusion. Approved by: Manolo Barrera M.D. on 01/04/2025 at 12:41 MDM Narrative Medical decision making narrative: 79-year-old male with history of squamous cell carcinoma unclear primary diagnosed by right neck node dissection 2007, with subsequent radiation and chemotherapy, felt to be cured, chronic hoarseness of his voice, hypothyroidism, last year had generalized weakness attributed to pneumonia, has generalized weakness since yesterday, concerned that he might have pneumonia. Lungs clear. No oxygen requirement. Afebrile, sirs screen negative. Consider dehydration, pneumonia, urinary tract infection, other. Chest x-ray and labs pending. IV fluid bolus. White blood cell count 00875 noted. Lactate normal. Chest x-ray suspicious for pneumonia. See radiology report. IV ceftriaxone, oral doxycycline 1st doses antibiotics given in the emergency department. We discussed admission, he would like to have further treatment as an outpatient for now. We will prescribed oral Augmentin and oral doxycycline 10 day course. Prescription sent to his pharmacy. Discharged home with . Follow up with PCP advised early next week. Return precautions discussed. Discharge Plan Departure Patient Disposition: Home Clinical Impression: Pneumonia Activity Restrictions/Additional Instructions: Generalized weakness, similar sensation with pneumonia in the past, no specific recent cough. White blood cell count elevated. Chest x-ray did show bilateral scattered infiltrates suspicious for pneumonia, could be bacterial, could be viral. We will presumed bacterial infection for now. IV ceftriaxone and oral doxycycline antibiotics given in the emergency department. We will send home on prescription for Augmentin and doxycycline oral antibiotic course for pneumonia. We talked about admission, you preferred to be treated as an outpatient for now. Follow up with your regular doctor advised early next week. Return to this/nearest emergency department for any change worsening symptoms or any concerns prior. Prescriptions: New amoxicillin-pot clavulanate 875-125 mg tablet 1 tab PO BID Qty: 20 0RF doxycycline hyclate 100 mg capsule 100 mg PO BID Qty: 20 0RF No Action Fiber (psyllium husk-sugar) 3.4 gram/7 gram powder 1 tbsp PO BID Qty: 822 0RF atorvastatin 40 mg tablet 40 mg PO DAILY levothyroxine 112 mcg tablet 112 mcg PO DAILY Patient Comments: TAKE 1 TABLET BY MOUTH ONCE DAILY IN THE MORNING ON AN EMPTY STOMACH 30 MINUTES PRIOR TO EATING famotidine 20 mg Tablet 20 mg PO BID Referrals: Eduardo Cooley MD [Primary Care Provider] - Stand Alone Forms: Patient Portal/API/Survey
--- NOTE | 2025-01-04 11:24 | PC.NURSE ---
Pt reports feeling weak and tired for a couple of weeks but states his symptoms have been worse over the past 48 hours. Lung sounds clear posteriorly on auscultation. Pt states he has not had a cough. Pt thinks he has aspiration pneumonia d/t previous radiation and surgeries around esophagus and stating last time he was dx w/ pneumonia (last summer) he felt this way. Pt states he use to have peg tube but states this has now been [for the most part] healed.
[2025-01-04] MEDS: SODIUM CHLORIDE 0.9% 1,000 ML 1000 ML IV (11:32)
[2025-01-04 11:36] LABS: Add Manual Diff / Slide Review NO; Basophils Absolute Auto 0 /uL (0-100); Basophils Percent Auto 0.3 % (0-2); Eosinophils Absolute Auto 100 /uL (0-450); Eosinophils Percent Auto 0.7 % (2-4); Hematocrit 40.6 % (41-53); Hemoglobin 13.5 g/dL (13.5-17.5); Lymphocytes Absolute Auto 600 /uL (1100-4500); Lymphocytes Percent Auto 3.4 % (25-40); Mean Corpuscular HGB Conc 33.3 % (30-36); Mean Corpuscular Hemoglobin 32.3 PG (26-34); Monocytes Absolute Auto 1200 /uL (0-900); Monocytes Percent Auto 6.7 % (3-14); Neutrophils Absolute Auto 16000 /uL (1500-7000); Neutrophils Percent Auto 88.9 % (50-75); Platelet Count 216 X10^3/uL (150-400); Red Blood Cell Count 4.18 X10^6/uL (4.5-5.9); Red Cell Distribution Width 13.3 % (11.6-14.8)
[2025-01-04 11:47] LABS: Alanine Aminotransferase 17 IU/L (<50); Albumin 3.9 g/dL (3.5-5.0); Albumin Globulin Ratio 1.3 (1.0-2.8); Alkaline Phosphatase 62 U/L (38-126); Aspartate Aminotransferase 17 IU/L (17-59); BUN Creatinine Ratio 24.4 (6-22); Bilirubin Total 1.4 mg/dL (0.2-1.3); Blood Urea Nitrogen 21 mg/dL (9-20); Calcium 9.1 mg/dL (8.4-10.2); Carbon Dioxide 28 mmol/L (22-32); Chloride 95 mmol/L (98-107); Estimated Glomerular Filt Rate > 60 mL/min (>60); Glucose 89 mg/dL (80-110); HEMOLYSIS < 15 (0-50); Potassium 4.4 mmol/L (3.4-5.1); Sodium 131 mmol/L (137-145); Total Protein 6.9 g/dL (6.3-8.2)
[2025-01-04 12:02] LABS: Influenza A - CEPHEID Flu A NEGATIVE (NEGATIVE); Influenza B - CEPHEID Flu B NEGATIVE (NEGATIVE); Respiratory Syncytial Virus Negative (Negative)
[2025-01-04 12:04] LABS: COVID-19 CEPHEID 4-PLEX PCR Negative (Negative)
[2025-01-04 12:57] LABS: Troponin I < 0.012 ng/mL (0.01-0.034)
[2025-01-04 13:03] LABS: Lactate (Lactic Acid) 1.2 mmol/L (0.7-2.1)
[2025-01-04 13:17] LABS: Thyroid Stimulating Hormone 1.01 uIU/mL (0.47-4.68)
[2025-01-04 14:31] LABS: Appearance Urine UA CLEAR; Bilirubin Urine UA NEGATIVE (NEGATIVE); Color Urine UA YELLOW; Glucose Urine UA NEGATIVE (Negative); Ketones Urine UA NEGATIVE (NEGATIVE); Leukocyte Esterase Urine UA NEGATIVE (NEGATIVE); Nitrite Urine UA NEGATIVE (Negative); Occult Blood Urine UA NEGATIVE (Negative); Protein Urine UA NEGATIVE (Negative); Urobilinogen Urine UA 0.2 E.U./dL (0.2); pH Urine UA 7.5 (4.5-8.0)
[2025-01-04] MEDS: DOXYCYCLINE HYCLATE 100 MG TABLET PO (14:31)
[2025-01-04] MEDS: cefTRIAXone 1,000 MG in SODIUM CHLORIDE 0.9% 100 ML 200 MG IV (14:32)
[2025-01-04 14:51] LABS: Amorphous Sediment Urine 2+; Bacteria Urine None Seen; Culture Indicated Urine Cult Not Indicated; RBC Urine None Seen (0-5/HPF); Squamous Epithelial Cell Urine None Seen (0-5/HPF); Urine Volume 10mL (spun); WBC Urine None Seen (0-5/HPF)
--- NOTE | 2025-03-12 11:04 | PC.NURSE ---
late entry- per RN the Ceftiraxone dose for 01/04 @ 1432 was completed at 1530
== END 2025-01-04 15:12 | disposition home or self-care (01) ==
PROVIDERS: Emergency Provider Emergency Medicine; Family Provider Family Medicine; PCP Family Medicine
DX: J18.9 Pneumonia, unspecified organism (principal); Z85.828 Personal history of other malignant neoplasm of skin
CPT/HCPCS: 0241U; 71046; 80053; 81001; 83605; 84443; 84484; 85025; 96361; 96365; 99284; J0696

== ENCOUNTER → 2025-01-18 10:12 | Outpatient (CLI) | payer MEDICARE, SELFPAY ==
--- NOTE | 2025-01-18 10:14 | DI.RAD.S_ITS ---
PROCEDURE: XR CHEST 2V INDICATIONS: F/U PNUEMONIA TECHNIQUE: 2 views of the chest were acquired. COMPARISON: [facility], CR, XR CHEST 2V, 01/04/2025, 11:09. [facility], CR, XR CHEST 1V, 04/22/2024, 19:30. FINDINGS: Surgical changes and devices: Median sternotomy wires. Aortic valvuloplasty. Lungs and pleura: Improvement in bilateral pulmonary opacities with some residual opacity present. No pleural effusions or pneumothorax. Mediastinum: Mediastinal contours are normal. Heart size is normal. Bones and chest wall: No suspicious bony abnormalities. Soft tissues appear unremarkable. IMPRESSION: Improvement in bilateral pulmonary opacities with some residual opacity present. Dictated by: Shaan Izquierdo M.D. on 01/18/2025 at 13:06 Approved by: Shaan Izquierdo M.D. on 01/18/2025 at 13:10
== END ==
PROVIDERS: Family Provider Family Medicine; PCP Family Medicine; Referring Provider Family Medicine; Visit Provider Family Medicine
DX: J18.9 Pneumonia, unspecified organism (principal); J69.0 Pneumonitis due to inhalation of food and vomit; R13.12 Dysphagia, oropharyngeal phase
CPT/HCPCS: 71046; 99214

== ENCOUNTER → 2025-02-08 10:42 | Outpatient (CLI) | payer MEDICARE, SELFPAY ==
--- NOTE | 2025-02-08 10:49 | DI.RAD.S_ITS ---
PROCEDURE: XR CHEST 2V INDICATIONS: fu aspiration pneumonia and treatment TECHNIQUE: 2 views of the chest were acquired. COMPARISON: [facility], CR, XR CHEST 2V, 01/18/2025, 10:10. [facility], CR, XR CHEST 2V, 01/04/2025, 11:09. FINDINGS: Surgical changes and devices: None. Lungs and pleura: Blunting of the costophrenic angle posteriorly. Mediastinum: Top-normal cardiac silhouette post valve replacement. Bones and chest wall: No suspicious bony abnormalities. Soft tissues appear unremarkable. IMPRESSION: Probable small pleural effusion, no consolidation seen. Dictated by: Eddie Tamayo M.D. on 02/08/2025 at 19:35 Approved by: Eddie Tamayo M.D. on 02/08/2025 at 19:36
--- NOTE | 2025-02-08 11:18 | EKG_ITS ---
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
== END ==
PROVIDERS: Family Provider Family Medicine; PCP Family Medicine; Referring Provider Family Medicine; Visit Provider Internal Medicine
DX: I49.9 Cardiac arrhythmia, unspecified (principal); R13.10 Dysphagia, unspecified; J69.0 Pneumonitis due to inhalation of food and vomit; J90 Pleural effusion, not elsewhere classified; R13.12 Dysphagia, oropharyngeal phase; Z68.21 Body mass index [BMI] 21.0-21.9, adult
CPT/HCPCS: 71046; 93005; 99215

== ENCOUNTER 2025-03-31 16:05 | Emergency (ER) | payer MEDICARE, SELFPAY ==
[2025-03-31 16:31] VITALS: BP 109/57; PULSE 67; RESP 20; TEMP 36.6; O2SAT 97; BMI 20.3
--- NOTE | 2025-03-31 16:39 | DI.RAD.S_ITS ---
PROCEDURE: XR ELBOW LT MIN 3V INDICATIONS: fall with pain and reduced movement TECHNIQUE: 3 views of the elbow were acquired. COMPARISON: None. FINDINGS AND IMPRESSION: Mild elbow arthrosis. No dislocation. No displaced fracture is seen. No significant joint effusion. If there is high concern for occult injury, consider repeat radiography in about 7 days or cross-sectional imaging. Dictated by: Blayne Padilla M.D. on 03/31/2025 at 16:23 Approved by: Blayne Padilla M.D. on 03/31/2025 at 16:24
--- NOTE | 2025-03-31 16:39 | DI.RAD.S_ITS ---
PROCEDURE: XR SHOULDER LT MIN 2V INDICATIONS: fall with pain and reduced movement TECHNIQUE: 3 views of the shoulder were acquired. COMPARISON: None. FINDINGS AND IMPRESSION: Moderate acromioclavicular and glenohumeral arthrosis. No acute displaced fracture or dislocation. No suspicious soft tissue calcifications. If there is high concern for occult injury, consider repeat radiography in about 7 days or cross-sectional imaging. Dictated by: Blayne Padilla M.D. on 03/31/2025 at 16:18 Approved by: Blayne Padilla M.D. on 03/31/2025 at 16:18
--- NOTE | 2025-03-31 16:39 | DI.RAD.S_ITS ---
PROCEDURE: XR CHEST 1V INDICATIONS: wet cough with hx of pnumonia TECHNIQUE: One view of the chest was acquired. COMPARISON: [facility], CR, XR CHEST 2V, 02/08/2025, 9:57. [facility], CR, XR CHEST 2V, 01/18/2025, 10:10. FINDINGS AND IMPRESSION: Right lower lung consolidation with small effusion, likely infection. Consider future imaging surveillance to assess for resolution. Normal heart size. Sternotomy wires. Degenerative osseous changes. Dictated by: Blayne Padilla M.D. on 03/31/2025 at 16:22 Approved by: Blayne Padilla M.D. on 03/31/2025 at 16:23
--- NOTE | 2025-03-31 18:34 | ED.FALL ---
HPI - Fall General Chief Complaint: Fall Stated Complaint: fell, lt arm pain,respiratory problems Time Seen by Provider: 03/31/25 16:21 Source: patient Mode of arrival: Ambulatory History of Present Illness HPI Narrative: 79-year-old male with history of mitral valve replacement, chronic anticoagulation Xarelto, prior PEG tube from aspiration. He complains initially of left elbow and left shoulder pain after fall slipping on rocks 8 days ago, persisting left elbow and left shoulder pain. Also has complaint of recent recurrence of productive cough, history of aspiration pneumonia, treated with Augmentin and doxycycline in successive antibiotic courses in December. Got better, now with new cough for the last few days. No coughing up of blood. Denies chest pain. Denies significant shortness of breath. Has concerns about injury from fall to left shoulder and left elbow, and also possible new pneumonia or other respiratory infection problem. Related Data Home Medications ?Medication ?Instructions ?Recorded ?Confirmed atorvastatin 40 mg tablet 40 mg PO DAILY 10/13/22 01/18/25 buspirone 10 mg tablet 10 mg PO DAILY 01/18/25 01/18/25 calcium carbonate [Tums] PO DAILY PRN 01/18/25 01/18/25 ipratropium bromide intranasal BID 01/18/25 01/18/25 levothyroxine 100 mcg tablet 100 mcg PO DAILY 01/18/25 01/18/25 cuqkmqxyjxou-fkg-puwdu acid-vit 1 tab PO DAILY 01/18/25 01/18/25 K-lycop 400 mcg-20 mcg-370 mcg tablet (Men's 50 Plus Multivitamin) rivaroxaban 20 mg tablet (Xarelto) 20 mg PO DAILY 01/18/25 01/18/25 Previous Rx's ?Medication ?Instructions ?Recorded amoxicillin 875 mg-potassium 1 tab PO BID #28 tabs 01/18/25 clavulanate 125 mg tablet amoxicillin 875 mg-potassium 1 tab PO BID #20 tabs 03/31/25 clavulanate 125 mg tablet cefdinir 300 mg capsule 300 mg PO BID 10 days #20 caps 03/31/25 doxycycline hyclate 100 mg tablet 100 mg PO BID #20 tabs 03/31/25 Allergies Allergy/AdvReac Type Severity Reaction Status Date / Time No Known Drug Allergies Allergy Verified 03/31/25 16:31 Patient History Medical History Hypothyroidism Post-nasal drip Anxiety Epistaxis Uses feeding tube BPH associated with nocturia Surgical History 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 HEAD: Atraumatic. Normocephalic. EYES: Pupils equal round and reactive. Extraocular motions intact. No scleral icterus. No injection or drainage. ENT: Nose without bleeding, purulent drainage. Throat without erythema, tonsillar hypertrophy or exudate. Airway patent. NECK: Trachea midline. Non tender CARDIOVASCULAR: Regular rate and rhythm without murmurs, gallops, or rubs. RESPIRATORY: Clear to auscultation. Breath sounds equal bilaterally. No wheezes, rales, or rhonchi. GASTROINTESTINAL: Abdomen soft, non-tender, nondistended. EXTREMITIES: No edema or joint tenderness. BACK: Nontender without deformity or crepitance. No flank tenderness. NEURO: AOx3. Motor functions grossly nonfocal. SKIN: No rash or erythema of visible areas Initial Vital Signs Initial Vital Signs: Vital Signs Temperature 97.8 F 03/31/25 16:31 Pulse Rate 67 03/31/25 16:31 Respiratory Rate 20 03/31/25 16:31 Blood Pressure 109/57 L 03/31/25 16:31 Pulse Oximetry 97 03/31/25 16:31 Oxygen Delivery Method Room Air 03/31/25 16:31 Course Orders Ordered: Discontinued Medications Amoxicillin/Clavulanate Potassium (Amoxicillin/Clav 875/125 Mg) 1 tab PO NOW ONE Stop: 03/31/25 19:31 Last Admin: 03/31/25 19:35 Dose: 1 tab Documented By: PRANAV Cefdinir (Cefdinir 300 Mg Capsule) 300 mg PO NOW ONE Stop: 03/31/25 18:45 Last Admin: 03/31/25 19:19 Dose: 300 mg Documented By: LIZ Doxycycline Hyclate (Doxycycline Hyclate 100 Mg Tablet) 100 mg PO NOW ONE Stop: 03/31/25 18:34 Last Admin: 03/31/25 19:19 Dose: 100 mg Documented By: LIZ Vital Signs Vital signs: Vital Signs - 8 hr 03/31/25 16:31 03/31/25 18:35 03/31/25 18:36 Temperature 97.8 F Pulse Rate 67 65 Respiratory Rate 20 Blood Pressure 109/57 L 114/60 Pulse Oximetry 97 97 Oxygen Delivery Method Room Air 03/31/25 18:36 03/31/25 18:59 03/31/25 18:59 Temperature Pulse Rate 67 79 Respiratory Rate 18 18 Blood Pressure 178/93 H Pulse Oximetry 98 97 Oxygen Delivery Method 03/31/25 19:00 Temperature Pulse Rate 74 Respiratory Rate Blood Pressure Pulse Oximetry 95 Oxygen Delivery Method MDM - Fall Lab Data Attestation: I reviewed the patient's lab results. Lab results narrative: White blood cell count 9100, hemoglobin 13.4, platelets adequate. Glucose 90. BUN 34 with creatinine 0.73. Serum CO2 33. Potassium 4.4, serum sodium 134. Liver functions normal. COVID influenza RSV negative. 03/31/25 19:05 03/31/25 19:05 Labs: Lab Results 03/31/25 03/31/25 Range/Units 18:55 19:05 WBC 9.1 (4.5-11.0) X10^3/uL RBC 4.15 L (4.5-5.9) X10^6/uL Hgb 13.4 L (13.5-17.5) g/dL Hct 39.4 L (41-53) % MCV 95.1 (80-100) fL MCH 32.4 (26-34) PG MCHC 34.1 (30-36) % RDW 14.3 (11.6-14.8) % Plt Count 194 (150-400) X10^3/uL Neut % (Auto) 84.4 H (50-75) % Lymph % (Auto) 7.8 L (25-40) % [place] % (Auto) 7.2 (3-14) % Eos % (Auto) 0.3 L (2-4) % Baso % (Auto) 0.3 (0-2) % Neut # (Auto) 7700 H (8718-0099) /uL Lymph # (Auto) 700 L (8222-8667) /uL [place] # (Auto) 700 (0-900) /uL Eos # (Auto) 0 (0-450) /uL Baso # (Auto) 0 (0-100) /uL Sodium 134 L (137-145) mmol/L Potassium 4.4 (3.4-5.1) mmol/L Chloride 97 L (98-107) mmol/L Carbon Dioxide 33 H (22-32) mmol/L BUN 34 H (9-20) mg/dL Creatinine 0.73 (0.66-1.25) mg/dL Estimated GFR > 60 (>60) mL/min BUN/Creatinine Ratio 46.6 H (6-22) Glucose 90 (70-99) mg/dL Lactate 1.2 (0.7-2.1) mmol/L Calcium 8.7 (8.4-10.2) mg/dL Total Bilirubin 1.2 (0.2-1.3) mg/dL AST 20 (17-59) IU/L ALT 17 (<50) IU/L Alkaline Phosphatase 71 (38-126) U/L Total Protein 7.3 (6.3-8.2) g/dL Albumin 3.9 (3.5-5.0) g/dL Globulin 3.4 (1.7-4.1) g/dL Albumin/Globulin Ratio 1.1 (1.0-2.8) SARS-CoV-2 (PCR) Negative (Negative) Influenza A (RT-PCR) Flu a negative (NEGATIVE) Influenza B (RT-PCR) Flu b negative (NEGATIVE) RSV (PCR) Negative (Negative) Imaging Data Extremity x-ray #1: Radiologist's Impression: [address] [address] XRay Report Signed Patient: Sukhi Cavazos MR#: [id number] : 1945 Acct:[id number] Age/Sex: 79 / M Date of Service: 03/31/25 Loc: ED Accession Number: [id number] Procedure: XR elbow LT min 3V Ordering Provider: Cale Rodriguez D.O. PROCEDURE: XR ELBOW LT MIN 3V INDICATIONS: fall with pain and reduced movement TECHNIQUE: 3 views of the elbow were acquired. COMPARISON: None. FINDINGS AND IMPRESSION: Mild elbow arthrosis. No dislocation. No displaced fracture is seen. No significant joint effusion. If there is high concern for occult injury, consider repeat radiography in about 7 days or cross-sectional imaging. Dictated by: Blayne Padilla M.D. on 03/31/2025 at 16:23 Approved by: Blayne Padilla M.D. on 03/31/2025 at 16:24 Chest x-ray: Radiologist's Impression: [address] [address] XRay Report Signed Patient: Sukhi Cavazos MR#: [id number] : 1945 Acct:[id number] Age/Sex: 79 / M Date of Service: 03/31/25 Loc: ED Accession Number: [id number] Procedure: XR chest 1V Ordering Provider: Cale Rodriguez D.O. PROCEDURE: XR CHEST 1V INDICATIONS: wet cough with hx of pnumonia TECHNIQUE: One view of the chest was acquired. COMPARISON: [facility], CR, XR CHEST 2V, 02/08/2025, 9:57. [facility], CR, XR CHEST 2V, 01/18/2025, 10:10. FINDINGS AND IMPRESSION: Right lower lung consolidation with small effusion, likely infection. Consider future imaging surveillance to assess for resolution. Normal heart size. Sternotomy wires. Degenerative osseous changes. Dictated by: Blayne Padilla M.D. on 03/31/2025 at 16:22 Approved by: Blayne Padilla M.D. on 03/31/2025 at 16:23 Extremity x-ray #2: Radiologist's Impression: [address] [address] XRay Report Signed Patient: Sukhi Cavazos MR#: [id number] : 1945 Acct:[id number] Age/Sex: 79 / M Date of Service: 03/31/25 Loc: ED Accession Number: [id number] Procedure: XR shoulder LT 2+ views Ordering Provider: Cale Rodriguez D.O. PROCEDURE: XR SHOULDER LT MIN 2V INDICATIONS: fall with pain and reduced movement TECHNIQUE: 3 views of the shoulder were acquired. COMPARISON: None. FINDINGS AND IMPRESSION: Moderate acromioclavicular and glenohumeral arthrosis. No acute displaced fracture or dislocation. No suspicious soft tissue calcifications. If there is high concern for occult injury, consider repeat radiography in about 7 days or cross-sectional imaging. Dictated by: Blayne Padilla M.D. on 03/31/2025 at 16:18 Approved by: Blayne Padilla M.D. on 03/31/2025 at 16:18 [facility] Narrative Medical decision making narrative: 79-year-old male with history of Xarelto chronic anticoagulation for arrhythmia (? Atrial fibrillation), pneumonia treated December 2024 with antibiotics they believe were amoxicillin and doxycycline, had mechanical fall slipping on wet rocks 8 days ago, did not strike head or neck, has persisting left shoulder and left elbow pain. Screening x-rays obtained. Chest x-ray was also obtained from triage. Left elbow x-ray, arthritic changes, no injury pattern identified. See radiology report. Left shoulder x-ray, no fracture or dislocation, arthritic changes. See radiology report. Chest x-ray no rib fracture or pneumothorax, right lower lobe infiltrate suspicious for pneumonia. See radiology report. COVID flu RSV negative. Afebrile, sirs screen negative, could not hear crackles on examination, no respiratory distress. Normal room-air sat. History of pneumonia December 2024 treated with amoxicillin and doxycycline. Recent cough noted, concern for recurrence of community-acquired pneumonia. Advanced age, we will avoid Levaquin/quinolone antibiotics for now. We will give oral cefdinir and doxycycline. Sent labs including blood cultures, lactate. Chart review, patient was actually treated with Augmentin and not amoxicillin in the past, history of aspiration pneumonia. We will give Augmentin and doxycycline oral doses. Lab screen pending. No oxygen requirement respiratory distress, anticipate further treatment as outpatient. Lab results pending. White blood cell count 9000, lactate not elevated. We will treat patient as an outpatient. Prescription sent for further antibiotics to his pharmacy, Augmentin and doxycycline. Recheck advised with regular provider early next week. History of aspiration, prior PEG placement, consider follow up with PCP to discuss repeat PEG placement or other measures to help prevent aspiration. Discharge Plan Departure Patient Disposition: Home Clinical Impression: Fall from ground level, Left shoulder strain, Strain of left elbow, Pneumonia Activity Restrictions/Additional Instructions: Mechanical fall 8 days ago slipping on rocks, with persisting left shoulder and left elbow pain. X-rays of these areas showed arthritis changes but no dislocation or fracture changes. Placed in left arm sling for comfort for now. Also history of previous PEG, aspiration pneumonia problems, treated with sequential antibiotics December 2024 with Augmentin and doxycycline, prior PEG feed tubes, PEG removed in the past with no apparent plans for replacement. Recent cough. Chest x-ray suspicious for right lower lobe pneumonia. No oxygen requirement. Blood tests did not show any inflammatory changes, we will treat as an outpatient for now. Oral antibiotics Augmentin and doxycycline given here in the emergency department, with prescriptions for 10 day course both antibiotics. Recheck lungs with your regular provider early this next week. Prescriptions: New cefdinir 300 mg capsule 300 mg PO BID 10 Days Qty: 20 0RF doxycycline hyclate 100 mg tablet 100 mg PO BID Qty: 20 0RF amoxicillin-pot clavulanate 875-125 mg tablet 1 tab PO BID Qty: 20 0RF No Action atorvastatin 40 mg tablet 40 mg PO DAILY levothyroxine 100 mcg tablet 100 mcg PO DAILY Xarelto 20 mg tablet 20 mg PO DAILY Rx Instructions: must administer with evening meal buspirone 10 mg tablet 10 mg PO DAILY Men's 50 Plus Multivitamin 400-20-370 mcg tablet 1 tab PO DAILY calcium carbonate [Tums] PO DAILY PRN ipratropium bromide intranasal BID amoxicillin-pot clavulanate 875-125 mg tablet 1 tab PO BID Qty: 28 1RF Referrals: Eduardo Cooley MD [Primary Care Provider, Family Practice] Stand Alone Forms: Patient Portal/API
[2025-03-31 18:35] VITALS: PULSE 65; O2SAT 97
[2025-03-31 18:36] VITALS: BP 114/60; PULSE 67; RESP 18; O2SAT 98
[2025-03-31 18:59] VITALS: BP 178/93; PULSE 79; RESP 18; O2SAT 97
[2025-03-31 19:00] VITALS: PULSE 74; O2SAT 95
[2025-03-31] MEDS: CEFDINIR 300 MG CAPSULE PO (19:19)
[2025-03-31] MEDS: DOXYCYCLINE HYCLATE 100 MG TABLET PO (19:19)
[2025-03-31 19:22] LABS: Add Manual Diff / Slide Review NO; Hematocrit 39.4 % (41-53); Hemoglobin 13.4 g/dL (13.5-17.5); Lymphocytes Absolute Auto 700 /uL (1100-4500); Mean Corpuscular HGB Conc 34.1 % (30-36); Mean Corpuscular Hemoglobin 32.4 PG (26-34); Mean Corpuscular Volume 95.1 fL (80-100); Platelet Count 194 X10^3/uL (150-400)
[2025-03-31 19:30] VITALS: PULSE 64; RESP 18; O2SAT 95
[2025-03-31 19:35] LABS: Lactate (Lactic Acid) 1.2 mmol/L (0.7-2.1)
[2025-03-31] MEDS: AMOXICILLIN/CLAV 875/125 MG 1 TAB PO (19:35)
[2025-03-31 19:36] LABS: Alanine Aminotransferase 17 IU/L (<50); Albumin 3.9 g/dL (3.5-5.0); Albumin Globulin Ratio 1.1 (1.0-2.8); Alkaline Phosphatase 71 U/L (38-126); Blood Urea Nitrogen 34 mg/dL (9-20); Calcium 8.7 mg/dL (8.4-10.2); Carbon Dioxide 33 mmol/L (22-32); Chloride 97 mmol/L (98-107); Estimated Glomerular Filt Rate > 60 mL/min (>60); Globulin 3.4 g/dL (1.7-4.1); Glucose 90 mg/dL (70-99); HEMOLYSIS < 15 (0-50); Potassium 4.4 mmol/L (3.4-5.1); Sodium 134 mmol/L (137-145); Total Protein 7.3 g/dL (6.3-8.2)
[2025-03-31 19:56] LABS: Influenza A - CEPHEID Flu A NEGATIVE (NEGATIVE); Influenza B - CEPHEID Flu B NEGATIVE (NEGATIVE)
[2025-03-31 19:58] LABS: COVID-19 CEPHEID 4-PLEX PCR Negative (Negative)
== END 2025-03-31 20:04 | disposition home or self-care (01) ==
PROVIDERS: Emergency Provider Emergency Medicine; Family Provider Family Medicine; PCP Family Medicine
DX: S46.912A Strain of unspecified muscle, fascia and tendon at shoulder and upper arm level, left arm, initial encounter (principal); S56.912A Strain of unspecified muscles, fascia and tendons at forearm level, left arm, initial encounter; J18.9 Pneumonia, unspecified organism; Z79.01 Long term (current) use of anticoagulants; Z95.2 Presence of prosthetic heart valve; W01.0XXA Fall on same level from slipping, tripping and stumbling without subsequent striking against object, initial encounter
CPT/HCPCS: 36415; 71045; 73030; 73080; 80053; 83605; 85025; 87637; 99283; 99284

== ENCOUNTER → 2025-04-10 15:56 | Outpatient (CLI) | payer MEDICARE, SELFPAY ==
--- NOTE | 2025-04-10 | DI.RAD.S_ITS ---
PROCEDURE: XR CHEST 2V INDICATIONS: CHEST XRAY TECHNIQUE: 2 views of the chest were acquired. COMPARISON: , , XR CHEST 1V, 03/31/2025, 16:48. FINDINGS: Heart, mediastinum and pulmonary vascular: Heart is normal in size and configuration. Mitral valve annuloplasty is in stable position without evidence for complication. Sternotomy changes noted. Mediastinum is unremarkable. Pulmonary vascular is normal. Lungs: COPD changes present. Small infiltrate in the the right lower lobe which is decreased in size Pleural spaces: Small right pleural effusion unchanged Bones and soft tissues: Normal IMPRESSION: Small right pleural effusion and small right lower lobe infiltrate improved Dictated by: Cale Pascual M.D. on 04/11/2025 at 12:12 Approved by: Cale Pascual M.D. on 04/11/2025 at 12:13
== END ==
PROVIDERS: Family Provider Family Medicine; PCP Family Medicine; Referring Provider Family Medicine; Visit Provider Family Medicine
DX: J90 Pleural effusion, not elsewhere classified (principal); R91.8 Other nonspecific abnormal finding of lung field; Z87.01 Personal history of pneumonia (recurrent)
CPT/HCPCS: 71046

== ENCOUNTER → 2025-04-19 09:32 | Outpatient (CLI) | payer MEDICARE, SELFPAY ==
--- NOTE | 2025-04-19 15:35 | ST.SWALLOW ---
Visit Care Team Role Provider Type Eduardo Cooley MD Family Provider Physician Primary Care Provider Specialty: Family Practice Address: [facility] [place], [address] Email: [email or web address] Margarito Martinez MD Attending Provider Physician Referring Provider Specialty: Ear, Nose, Throat Address: [address] [place] [address] [place], [address] Email: [email or web address] Modified Barium Swallow Study DARKROOM TECHNICIAN Modified Barium Swallow Study Start: 04/19/25 13:24 Freq: Status: Active Protocol: Document 04/19/25 13:25 LNK (Rec: 04/19/25 15:35 LNK Desktop) Modified Barium Swallow Study Total Time Visit Start Time 10:00 Visit Stop Time 11:00 Total Visit Minutes [address] Margarito Martinez, ENT; Dr Howard (PCP) Reason for Referral dysphagia Setting Setting Outpatient Care Patient Information Identification Type Name,Date of Patient History Pt was seen for a Modified Barium Swallow Study At referral of Dr. Martinez. 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 He was treated initially with precise radiation targeting base of tongue; however, this was not effective and (per pt report), radiation was expanded from level of the pt's nose to abdomen. The pt reports receiving maximum radiation allowed by federal standards. Pt received swallow therapy from 2019 through 2021 targeting base of tongue exercises to in crease strength as well as safe swallow strategies with a goal to stop g-tube feeding and be completely PO for eating/drinking. By 2021, pt reported that he was taking in>90% of his hydration and nutrition orally, with <10% consumed via tube. MBSS at that time indicated Trace to mild penetration was observed with all consistencies during and after swallow, both of oral bolus and pharyngeal residue. One episode of moraima aspiration of pharyngeal residue was noted after swallow of applesauce consistency. All penetration and aspiration was silent. Cough performed by the pt either in response to the Clinician's instructions or during use of super- supraglottic swallow maneuver were effective in clearing the laryngeal vestibule. Pt saw Dr. Meyer at [facility] in 2020 for Botox injection into UES to relax and allow greater opening for boluses. Additionally he had his right vocal fold (paresis) injected to augment glottal adduction. Both of which pt reported to be beneficial. Currently, pt reported that he has been doing on his exercise program intermittently. He reported he has had or 2 cases of aspiration pneumonia over the past year, each lasting about 3 weeks. Chest xrays (01/13/24 and 04/22/24) were reported by Dr Howard to indicate dense consolidation in the right midlung. Pt has also noted his voice is more breathy with occasional aphonia and laryngeal spasms. Pt consulted Sarah Logan, DARKROOM TECHNICIAN, CCC at [facility] in February 2025 regarding his current swallow and vocal status. He was instructed to restart his swallow exercise program a she recommended repeat MBSS to evaluate pt's current swallow function. Subjective Pt was seated in the flouroscopy chair with directions Observations and procedures explained for him. He indicated he understood and agreed to proceed. Patient Positioning Position View Lateral Imaging Lateral View Textures Administered Trials Presented Thin Liquid via Spoon (IDDSI 0),Mildly Thick Liquid via Spoon (IDDSI 2),Extremely Thick Liquid via Spoon ( IDDSI 4) Barium Tablet No The IDDSI Framework Protocol: IDDSI.1 Oral Impairment Source: The Modified Barium Swallow Impairment Profile (MBSImP??) Lip Closure No labial escape Tongue Control Cohesive bolus between tongue to palatal seal During Bolus Hold Bolus Transport/ Brisk tongue motion Lingual Motion Oral Residue Residue collection on oral structures Location Lateral sulci Initiation of Bolus head at pyriforms Pharyngeal Swallow Additional Oral *OME and DKS were observed to be WNL. Oral phase of Impairment swallow WNL Observations Pharyngeal Impairment Source: The Modified Barium Swallow Impairment Profile (MBSImP??) Soft Palate No bolus between soft palate & pharyngeal wall Elevation Laryngeal Elevation Min.sup.move. thyroid cart. w/min.approx.arytenoids to epiglot.petiole Anterior Hyoid No anterior movement Excursion Epiglottic Movement No inversion Laryngeal Vestibular None; wide column air/contrast in laryngeal vestibule Closure Pharyngeal Stripping Present - diminished Wave Pharyngoesophageal Minimal distension/minimal duration; marked obstruction Segment Opening of flow Tongue Base Wide column of contrast/air betwn tongue base & post. Retraction pharyngeal wall Pharyngeal Residue Majority of contrast within/on pharyngeal structures Location Diffuse (>3 areas) Additional .5 to 1 teaspoonful of contrast /trial; .5 tsp of Pharyngeal semisolid/pudding texture administered Impairment *Weak base of tongue retraction strength Observations *Minimal hyolaryngeal elevation and movement *No epiglottal inversion observed across all trials *Minimal stripping of posterior pharyngeal wall *Significant valecullar pooling following all trials *Laryngeal penetration/tracheal aspiration of valecullar pooling observed *Moraima/silent aspiration observed . Pt cued to cough which was partially effective *Significant reduction in the extension and duration of UES opening. Despite small bolus trials, the pt required 4+ swallow attempts per trial. Aspiration of contrast not swallowed was observed. Aspirated contrast observed on posterior of tracheal wall - likely related to residue on UES and/or reduction in glottal adduction due to paresis of right vocal fold, or both. *Semisolid/pudding texture was observed to coat pharyngeal structures with pt experiencing significant difficulty moving bolus through pharyngeal cavity A/P View The IDDSI Framework Protocol: IDDSI.1 A/P View Observations Additional A-P AP view not attempted due to aspiration risk Observations Clinical Impressions Dysphagia Type Pharyngeal,Esophageal Findings Pt presented with severe pharyngeal dysphagia with restricted opening of the UES. Moraima aspiration (silent ) was observed across all trials was observed with thin barium, nectar thick barium and pudding thick barium. Additional texture trials were not attempted secondary to aspiration risk. Pt's cued cough was partially effective in clearing contrast from larynx. However, due to the lack of epiglottal inversion, right vocal fold paresis, restricted opening of the UES stiffening of neck muscles and pharyngeal structures, (i.e., residual effects of radiation treatment), the pt is at high risk for aspiration. The MBSS results and still images of the MBSS were reviewed with the pt and his . It was recommended that he be referred to GI for assessment/treatment of UES restriction. Additionally, pt may benefit from ENT referral re: vocal fold augmentation, which would improve glottal adduction and potentially reduce aspiration risk. It was discussed with the pt and his pt's that aspiration risk would be reduced significantly if he returned to g-tube nutrition. The pt stated he would like to see a GI specialist and diligently do the swallow exercises prescribed for him for a few months before getting g-tube replaced. Pt and his indicated they understood the aspiration risks with their plan. Patient Appropriate No: pt has a POC that he will return to at home for Therapy Recommendations Diet Comments No change in diet at this time Treatment Plan Recommended GI Consult,ENT Consult Referrals
== END ==
LOC: RAD 09:32
PROVIDERS: Family Provider Family Medicine; PCP Family Medicine; Referring Provider Otolaryngology; Visit Provider Otolaryngology
DX: J38.01 Paralysis of vocal cords and larynx, unilateral (principal); R13.13 Dysphagia, pharyngeal phase; R05.3 Chronic cough; R49.0 Dysphonia; Z92.3 Personal history of irradiation
CPT/HCPCS: 74230; 92611